=== PATIENT | female | born 1975 | race Caucasian/White ===

== ENCOUNTER 2023-05-11 17:50 | Emergency (ER) | payer MEDICAID, SELFPAY ==
[2023-05-11 17:52] VITALS: BP 190/103; PULSE 89; RESP 18; TEMP 36.1; O2SAT 95; BMI 57.2
--- NOTE | 2023-05-11 18:10 | EX.ED.DYSGE1 ---
HPI <MESFIN Ho - Last Filed: 05/11/23 19:42> History of Present Illness Chief Complaint: Shortness of Breath Narrative Narrative: Patient is a 48-year-old female with history of obesity, COPD, asthma, hypertension who quit smoking in November 2022. Patient smoked 2 packs/day. Presenting to the emergency department for 1 week of worsening cough, chest congestion. Patient is concerned because her son was positive for RSV, pneumonia. She states that over the last several days she has had subjective chills, intermittent sweating. She states that her mucus is thick and difficult to get up. PFSH <MESFIN Ho - Last Filed: 05/11/23 19:42> [facility] Medical History (Updated 05/11/23 @ 19:40 by MESFIN Ho) COPD (chronic obstructive pulmonary disease) Fentanyl use disorder, mild, in sustained remission, abuse Former smoker HTN (hypertension) Pulmonary emboli Home Medications albuterol sulfate 90 mcg/actuation aerosol inhaler 2 puff inhalation Q4H PRN sob wheezying 05/11/23 [History Last Taken 05/11/23] buprenorphine 8 mg-naloxone 2 mg sublingual film 1 film sublingual Q24H 05/11/23 [History Last Taken Unknown] bupropion HCl 300 mg 24 hr tablet, extended release 300 mg PO DAILY 05/11/23 [History Last Taken Unknown] doxycycline hyclate 100 mg capsule 100 mg PO BID #13 caps 05/11/23 [Rx Last Taken Unknown] gabapentin 300 mg capsule 300 mg PO Q8H 05/11/23 [History Last Taken Unknown] lisinopril 40 mg tablet 40 mg PO DAILY 05/11/23 [History Last Taken Unknown] prednisone 50 mg tablet 50 mg PO DAILY #4 tabs 05/11/23 [Rx Last Taken Unknown] Allergy/AdvReac Type Severity Reaction Status Date / Time No Known Allergies Allergy Verified 05/11/23 17:56 Surgical History (Updated 05/11/23 @ 18:45 by Kimberly Rodrigues) History of cholecystectomy History of open reduction and internal fixation (ORIF) procedure Social History Smoking Status: Former smoker ROS <MESFIN Ho - Last Filed: 05/11/23 19:42> ROS ED ROS Narrative Constitutional: Negative for fever, weight loss, weakness. Positive for chills Eyes: Negative for vision loss, vision change, double vision ENT: Negative for any sore throat, ear pain, congestion Cardiovascular: Negative for any chest pain, tightness, palpitations Respiratory: Negative for any hemoptysis, dyspnea, dyspnea on exertion, orthopnea. Positive for cough, sputum production Gastrointestinal: Negative for any abdominal pain, nausea, vomiting, diarrhea, constipation, blood in stool, blood in vomit : Negative for any urinary frequency, dysuria, retention, blood in urine Muscle skeletal: Negative for any myalgias, arthralgias, neck pain, back pain Neurological: Negative for any headache, syncope, paresthesias, dizziness Skin: Negative for any rashes, lumps, itching, abrasions, lacerations Psychiatric: Negative for any depression, anxiety, stress, suicidal ideation, homicidal ideation Hematologic: Negative for any easy bruising, excessive bruising, easy bleeding Allergies: Negative for any eczema, hives, rash EXAM <MESFIN Ho - Last Filed: 05/11/23 19:42> Physical Exam Narrative Exam Narrative: Vital signs reviewed. HEET: Head normocephalic atraumatic, TMs clear bilaterally. Posterior pharynx is clear, moist mucous membranes. Nares clear bilaterally. Neck: Supple with no lymphadenopathy or tenderness. No signs of meningismus. Cardiac: Regular rate and rhythm no murmurs gallops or rubs, equal peripheral pulses bilaterally. Respiratory: Difficult to assess lung sounds secondary to body habitus, there were some expiratory wheezes to the anterior left upper lobe. Posterior lung sounds were clear. No chest tenderness. Abdomen: Soft, nontender, nondistended. No abdominal bruit or pulsatile masses. No hepatosplenomegaly Extremities: No peripheral edema, no signs of gross trauma or deformity. Active full range of motion of all extremities. Neuro: Cranial nerves II through XII intact, no focal neurological deficits. Skin: Clean dry and intact with no rash, purpura, petechiae, vesicles or pustules. Backs/flank: No CVA tenderness, no midline spinal tenderness, no deformity. Psych: Normal mood and affect. No SI, HI or acute psychosis. Const Vital Signs: 05/11/23 17:52 05/11/23 18:46 05/11/23 19:02 Temperature 97.0 F L Temperature Source Temporal Pulse Rate 89 79 Respiratory Rate 18 14 Respiratory Effort Normal Respiratory Depth Normal Respiratory Pattern Normal Normal Blood Pressure 190/103 H Blood Pressure Mean 132 Pulse Ox 95 Oxygen Delivery Method Room Air Room Air 05/11/23 19:43 Temperature Temperature Source Pulse Rate 83 Respiratory Rate 17 Respiratory Effort Respiratory Depth Respiratory Pattern Blood Pressure 166/83 H Blood Pressure Mean 110 Pulse Ox 100 Oxygen Delivery Method <Dr. Сергей Lowe MD - Last Filed: 05/11/23 22:04> Physical Exam Const Vital Signs: 05/11/23 17:52 05/11/23 18:46 05/11/23 19:02 Temperature 97.0 F L Temperature Source Temporal Pulse Rate 89 79 Respiratory Rate 18 14 Respiratory Effort Normal Respiratory Depth Normal Respiratory Pattern Normal Normal Blood Pressure 190/103 H Blood Pressure Mean 132 Pulse Ox 95 Oxygen Delivery Method Room Air Room Air 05/11/23 19:43 Temperature Temperature Source Pulse Rate 83 Respiratory Rate 17 Respiratory Effort Respiratory Depth Respiratory Pattern Blood Pressure 166/83 H Blood Pressure Mean 110 Pulse Ox 100 Oxygen Delivery Method MDM <MESFIN Ho - Last Filed: 05/11/23 19:42> MDM Radiography Diagnostic Testing: Clinical Impression(s) from Imaging Studies Chest X-Ray 05/11/23 18:30 IMPRESSION: Normal x-ray examination of the chest. Electronically Signed: Ezra Chairez MD at 19:13 EST , Treatment and Re-Evaluation :: Patient appears generally well, patient appears nontoxic, vital signs are stable. Presenting to the emergency department with complaints of cough, generalized malaise over the last week. Differential diagnose includes community-acquired pneumonia, COPD exacerbation, influenza, COVID, RSV. Patient was given two-view chest x-ray as well as breathing treatments. All radiologic examinations were read, reviewed by the emergency department attending. From these reads, a plan of care will be put in place. Rapid PCR RSV/COVID/influenza will be completed. Chest x-ray was negative for any acute process, patient was negative for any COVID-19 influenza or RSV. At this time, patient be treated as a COPD exacerbation. Started on prednisone 50 mg for 5 days, she will given her first dose here. She also given 7 days of doxycycline given her first dose here. She is happy the plan of care, she will continue taking her regular inhalers. She was given strict return precaution. All questions answered stable for discharge <Dr. Сергей Lowe MD - Last Filed: 05/11/23 22:04> MDM Radiography Diagnostic Testing: Clinical Impression(s) from Imaging Studies Chest X-Ray 05/11/23 18:30 IMPRESSION: Normal x-ray examination of the chest. Electronically Signed: Ezra Chairez MD at 19:13 EST , Treatment and Re-Evaluation Comments:: I have personally performed a face to face assessment of the patient and have reviewed the KENDELL Note. I performed a substantive portion of the visit including all aspects of the following. My bangura findings include: History is 1 week of respiratory symptoms along with increased COPD symptoms. Trying to get up sputum more but having trouble getting it. No fevers or chills. Positive sick contacts. No edema in the legs. Using rescue inhaler more than usual which is helping does not have a nebulizer machine. Exam is obese, no respiratory distress. Lungs clear with slight end expiratory wheezes. Heart regular no edema. Medical Decison Making chest x-ray 2 views of mitral rotation negative for pneumonia, viral swabs obtained, she is not hypoxic. Will place her on prednisone, antibiotics to prevent bacterial superinfection, and she already has an inhaler to use if she is comfortable with that plan. Other additions or changes: [None] Discharge Plan Triage Chief Complaint: Shortness of Breath ED Midlevel Provider: Ridge Pulido ED Provider: Сергей Lowe Dx/Rx/DC Orders Clinical Impression: Asthma exacerbation in COPD Instructions: Asthma COPD Trigger Control, Asthma Prescriptions: New prednisone 50 mg tablet 50 mg PO DAILY Qty: 4 0RF doxycycline hyclate 100 mg capsule 100 mg PO BID Qty: 13 0RF No Action albuterol sulfate 90 mcg/actuation HFA aerosol inhaler 2 puff INHALATION Q4H PRN (Reason: sob wheezying) Patient Comments: INHALE 2 PUFFS BY MOUTH EVERY 4 HOURS NEEDED FOR SHORTNESS OF BREATH OR WHEEZING FOR UP TO 30 DAYS buprenorphine-naloxone 8-2 mg film 1 film sublingual Q24H Patient Comments: PLACE 1 STRIP UNDER THE TONGUE THREE TIMES DAILY FOR 28 DAYS bupropion HCl 300 mg tablet extended release 24 hr 300 mg PO DAILY gabapentin 300 mg capsule 300 mg PO Q8H lisinopril 40 mg tablet 40 mg PO DAILY Patient Comments: TAKE 1 TABLET BY MOUTH ONCE DAILY Primary Care Provider: Care Physician,No Primary Referrals: Care Physician,No Primary [Primary Care Provider] - Activity Restrictions/Additional Instructions: Please follow-up outpatient. Antibiotics till finished, take prednisone until finished. Disposition Disposition: Home, Self Care Discharge Date/Time: 05/11/23 19:47
--- NOTE | 2023-05-11 18:30 | RAD_ITS ---
STUDY: X-RAY CHEST REASON FOR EXAM: Female, 48 years old. cough TECHNIQUE: PA and lateral views of the chest. COMPARISON: None. FINDINGS: The lungs are clear and expanded. There is no demonstrated pleural abnormality. Normal size heart. Normal mediastinum and sukhwinder. Normal visualized pulmonary arteries. Normal visualized aortic arch and descending thoracic aorta. Normal visualized thoracic spine. Normal visualized ribs, clavicles, and shoulders. There is no demonstrated abnormality of the visualized soft tissue structures of the upper abdomen. RAD/Chest PA and Lateral IMPRESSION: Normal x-ray examination of the chest. Electronically Signed: Ezra Chairez MD at 19:13 EST ,
[2023-05-11] MEDS: Albuterol 2.5 MG/3 ML VIAL.NEB. INHALATION (19:01)
[2023-05-11] MEDS: Ipratropium/Albuterol Sulfate 3 ML AMPUL.NEB INHALATION (19:01)
[2023-05-11 19:02] VITALS: PULSE 79; RESP 14
[2023-05-11 19:43] VITALS: BP 166/83; PULSE 83; RESP 17; O2SAT 100
[2023-05-11] MEDS: Doxycycline 100 MG CAPSULE PO (19:46)
[2023-05-11] MEDS: predniSONE 20 MG Tablet 60 MG PO (19:46)
== END 2023-05-11 19:47 | disposition home or self-care (01) ==
PROVIDERS: Emergency Provider Emergency Medicine; Visit Provider Emergency Medicine
DX: J44.1 Chronic obstructive pulmonary disease with (acute) exacerbation (principal); E66.9 Obesity, unspecified; I10 Essential (primary) hypertension; Z79.899 Other long term (current) drug therapy; Z87.891 Personal history of nicotine dependence; Z86.711 Personal history of pulmonary embolism
CPT/HCPCS: 71046; 87631; 94640; 99283

== ENCOUNTER 2023-05-13 14:44 | Emergency (ER) | payer MEDICAID, SELFPAY ==
[2023-05-13 14:45] VITALS: BP 147/94; PULSE 104; RESP 24; TEMP 36.1; O2SAT 93
--- NOTE | 2023-05-13 14:54 | NURSING ---
NO OLD EKGS
--- NOTE | 2023-05-13 15:23 | EDS_ITS ---
HPI History of Present Illness Chief Complaint: Chest Pain [facility] Medical History (Updated 05/13/23 @ 18:[address] Andrew Franks, DO) COPD (chronic obstructive pulmonary disease) Fentanyl use disorder, mild, in sustained remission, abuse Former smoker HTN (hypertension) Pulmonary emboli Home Medications albuterol sulfate 90 mcg/actuation aerosol inhaler 2 puff inhalation Q4H PRN sob wheezying 05/11/23 [History Last Taken 05/11/23] buprenorphine 8 mg-naloxone 2 mg sublingual film 1 film sublingual Q24H 05/11/23 [History Last Taken Unknown] bupropion HCl 300 mg 24 hr tablet, extended release 300 mg PO DAILY 05/11/23 [History Last Taken Unknown] doxycycline hyclate 100 mg capsule 100 mg PO BID #13 caps 05/11/23 [Rx Last Taken Unknown] gabapentin 300 mg capsule 300 mg PO Q8H 05/11/23 [History Last Taken Unknown] lisinopril 40 mg tablet 40 mg PO DAILY 05/11/23 [History Last Taken Unknown] prednisone 50 mg tablet 50 mg PO DAILY #4 tabs 05/11/23 [Rx Last Taken Unknown] metoclopramide HCl 5 mg tablet (Reglan) 5 mg PO DAILY #20 tabs 05/13/23 [Rx Last Taken Unknown] Allergy/AdvReac Type Severity Reaction Status Date / Time No Known Allergies Allergy Verified 05/11/23 17:56 Surgical History (Updated 05/11/23 @ 18:45 by Kimberly Rodrigues) History of cholecystectomy History of open reduction and internal fixation (ORIF) procedure Social History Smoking Status: Former smoker EXAM Physical Exam Const Vital Signs: 05/13/23 14:45 05/13/23 15:47 05/13/23 15:47 Temperature 96.9 F L Temperature Source Temporal Pulse Rate 104 H 100 Respiratory Rate 24 H 15 Respiratory Effort Blood Pressure 147/94 H 130/85 H Blood Pressure Mean 111 100 Pulse Ox 93 94 94 Oxygen Delivery Method Room Air Room Air Room Air 05/13/23 15:30 Temperature Temperature Source Pulse Rate Respiratory Rate Respiratory Effort Normal Non-Labored Blood Pressure Blood Pressure Mean Pulse Ox Oxygen Delivery Method Heart Score History: Slightly/Non-Suspicious ECG: Normal Age: >45 - <65 years Risk Factors: 1 or 2 Risk Factors Troponin: </= Normal Limit Score: 2 MDM MDM MDM Narrative Medical decision making narrative: HISTORY OF PRESENT ILLNESS: 48-year-old female presents with chest pain, shortness of breath and headache. She notes headache started 2 days ago. Was gradual in onset. Patient denies sudden onset or thunderclap headache, denies maximal intensity within 1 minute, vomiting, neck pain, stiffness, changes in vision, fever, history malignancy, syncope, or seizures associated with headache. Patient denies sudden onset of pain, no tearing sensation, no migratory symptoms, no new numbness, weakness or loss of sensation. Patient denies family history or personal history of Connective tissue disorders (Marfan's Syndrome, Reymundo Danlos etc). The patient denies recent surgery in the last 4 weeks or immobilization in the last 3 days, or PE, hemoptysis, unilateral leg swelling or malignancy with treatment the last 6 months or palliative. No estrogen use noted. No falls or recent trauma. No syncope reported. In Terms of patient's shortness of breath and chest pain. States is intermittent. Occurred 1 week ago. REVIEW OF SYSTEMS: Pertinent positives: Chest pain, shortness of breath, headache Pertinent negatives: Syncope, focal weakness, slurred speech, loss of vision, facial drooping, head trauma, vomiting, fever, neck stiffness PHYSICAL EXAM: Nursing triage notes reviewed, Vital signs reviewed Constitutional: please see mdm HENT: MMM Eyes: Pupils equal round and reactive to light, Extraocular muscles intact Neck: No stridor, no JVD, full neck ROM Lungs: Clear to auscultation, No wheezing or rales. No increased work of breathing, no conversational dyspnea, no accessory muscle use, no nasal flaring. No respiratory distress noted Heart: Regular rate and rhythm, No murmurs, No rubs and No gallops, 2+ distal pulses (radial, femoral, posterior tibial) in all extremities Abdomen: Soft, there is no tenderness, rigidity, rebound or guarding, no obvious peritoneal signs, no palpable pulsatile abdominal masses, no auscultated abdominal bruit : No CVAT Extremities: No edema Neuro: No focal neurological deficits, cranial nerves II through XII intact, 5/5 strength in all extremities. Intact sensation to light touch in all extremities, 2+ reflexes bilateral patella tendons. Normal gait. No ataxia. Skin: No rash or lesions noted MEDICAL DECISION MAKING: Chief Complaint: Chest pain, shortness breath, headache External records reviewed: No recent advanced imaging of the chest, recent cardiac catheterizations, stress test or echocardiograms noted Factors affecting care: Hypertension, asthma Social determinants of health: Denies illicit drug use History obtained from others: none Consults: none [facility] Narrative: THe patient was initially hemodynamically stable, tachypneic, mildly tachycardic saturating 93% on room air. Lungs were clear otherwise. No focal neurologic deficits I considered the following differential diagnosis: ALL IMAGES (IF OBTAINED) HAVE BEEN PERSONALLY REVIEWED AND INTERPRETED BY MYSELF. EKG with sinus tachycardia, normal axis, normal intervals, no STemi D-dimer negative making VTE less likely High-sensitivity troponin is negative, no evidence of myocardial ischemiax2 BNP within normal limits making heart failure less likely CBC without leukocytosis, severe anemia, no thrombocytopenia. BMP without evidence of significant electrolyte abnormalities, no anion gap, no acute kidney injury. I have personally reviewed the patient's chest x-ray. Chest x-ray is unremarkable for pulmonary edema, pneumothorax, pneumonia or focal cardiopulmonary abnormality. COVID, flu, RSV negative The synthesis of the patient's history, physical exam, labs images suggest no acute or life-threatening etiology. Patient's headache is not concerning for meningitis, subarachnoid hemorrhage or other intracranial abnormality. Her chest pain or shortness of breath do not appear to be consistent with pneumonia, ACS, COVID, flu, RSV, heart failure, PE. I completed a HEART Score to screen for Major Adverse Cardiac Event (MACE) in this patient. The evidence indicates that the patient is very low risk for MACE and this is consistent with my clinical intuition. The risk of further workup or hospitalization for MACE is likely higher than the risk of the patient having a MACE. It is, therefore, in the patient?s best interest not to do additional emergent testing or to be hospitalized for MACE at this time. Shared Decision-Making No hospitalization indicated I have discussed with the patient my clinical impression and the result of the HEART Score to screen for MACE, as well as the risks of further testing and hospitalization. The HEART Score shows that the risk for MACE is less than 1%. Although the risk of MACE has not been completely eliminated, the risks of further testing or hospitalization for MACE likely exceed any potential benefit, and the patient agrees with not pursuing further emergent evaluation or hospitalization for MACE at this time. The patient and/or family, caregivers express understanding. The patient and/or family, caregivers agrees with the plan. Total critical care time today provided was at least 0 minutes. This excludes separately billable procedures. Critical care time (if documented) is secondary to the patient having high probability of clinically significant/life threatening deterioration in the patient's condition which required my urgent intervention. Impression: 1. Chest pain 2. Shortness of breath 3. Headache Dispo: Discharge Lab Data Labs: Laboratory Results - last 24 hr 05/13/23 05/13/23 15:45 17:50 WBC 10.3 RBC 4.53 Hgb 13.2 Hct 42.0 MCV 92.7 MCH 29.1 MCHC 31.4 L RDW Std Deviation 41.9 RDW Coeff of [place] 12.2 Plt Count 209 MPV 10.4 Immature Gran % (Auto) 0.300 Neut % (Auto) 58.4 Lymph % (Auto) 29.4 Glenn % (Auto) 6.4 Eos % (Auto) 4.9 Baso % (Auto) 0.6 Absolute Neuts (auto) 6.0 Absolute Lymphs (auto) 3.01 Nucleated RBC % 0 D-Dimer Quant (PE/DVT) 0.46 Sodium 142 Potassium 4.1 Chloride 110 H Carbon Dioxide 27.0 Anion Gap 5 BUN 27 H Creatinine 0.74 Est GFR (MDRD) Af Amer 108 Est GFR (MDRD) Non-Af 89 BUN/Creatinine Ratio 36.3 H Glucose 122 H Calcium 8.3 L Troponin I High Sens 5 5 B-Natriuretic Peptide 17.0 Radiography Chest X-Ray - ED: Read by ED Physician Diagnostic Testing: Clinical Impression(s) from Imaging Studies Chest X-Ray 05/13/23 15:45 IMPRESSION: No radiographic evidence of acute cardiopulmonary disease. Electronically Signed: Seb Bal DO at 17:00 EST Reading Location ID and State: [facility] / [place] Tel [phone], Service support , Discharge Plan Triage Chief Complaint: Chest Pain ED Provider: Andrew Franks Dx/Rx/DC Orders Clinical Impression: Chest pain Instructions: ED, Migraine (Classical), Chest Pain [facility] Prescriptions: New metoclopramide HCl [Reglan] 5 mg tablet 5 mg PO DAILY Qty: 20 0RF No Action albuterol sulfate 90 mcg/actuation HFA aerosol inhaler 2 puff INHALATION Q4H PRN (Reason: sob wheezying) Patient Comments: INHALE 2 PUFFS BY MOUTH EVERY 4 HOURS NEEDED FOR SHORTNESS OF BREATH OR WHEEZING FOR UP TO 30 DAYS buprenorphine-naloxone 8-2 mg film 1 film sublingual Q24H Patient Comments: PLACE 1 STRIP UNDER THE TONGUE THREE TIMES DAILY FOR 28 DAYS bupropion HCl 300 mg tablet extended release 24 hr 300 mg PO DAILY gabapentin 300 mg capsule 300 mg PO Q8H lisinopril 40 mg tablet 40 mg PO DAILY Patient Comments: TAKE 1 TABLET BY MOUTH ONCE DAILY prednisone 50 mg tablet 50 mg PO DAILY Qty: 4 0RF doxycycline hyclate 100 mg capsule 100 mg PO BID Qty: 13 0RF Stand Alone Forms: Work / School Excuse Primary Care Provider: Care Physician,No Primary Referrals: Suhail Veliz MD [Med Staff - Case Assembler] - Disposition Disposition: Home, Self Care Capacity Legal Mini Shifter Reflex Medical hold order details:: IF a medical hold is selected below, a suggested order for a MEDICAL HOLD will reflex upon signing the document. Next of kin: [place] law dictates a PRIORITY LIST for identifying legal decision-maker/legal next of kin in the following order (LNOK): 1st: The patient?s legal guardian, if any 2nd: The patient's spouse (if status is questionable, consult Risk Management) 3rd: The patient?s adult child(argelia) (majority, if multiple children) 4th: The patient?s parents 5th: The patient?s adult siblings (majority, if multiple children siblings)
--- NOTE | 2023-05-13 15:25 | EKG12_ITS ---
Test Reason : CP Blood Pressure : / mmHG Vent. Rate : 106 BPM Atrial Rate : 106 BPM P-R Int : 136 ms QRS Dur : 090 ms QT Int : 332 ms P-R-T Axes : 071 050 004 degrees QTc Int : 441 ms Sinus tachycardia with Premature atrial complexes Biatrial enlargement Abnormal ECG Confirmed by CHAN GOVEA, YAIR ([id number]), video tape editor LOYDA MACHADO ([id number]) on 05/15/2023 9:17:29 AM Referred By: SAMMIE/SAIMA Confirmed By:YAIR GILES MD
--- NOTE | 2023-05-13 15:45 | RAD_ITS ---
INDICATION: chest pain EXAMINATION/TECHNIQUE: X-RAY - XR Chest 1 View COMPARISON: FINDINGS: LINES/DEVICES: None. LUNGS: No consolidation, edema or effusion. No pneumothorax. MEDIASTINUM AND CARDIOVASCULAR STRUCTURES: Cardiac silhouette not enlarged. Central airways and mediastinal contour are unremarkable. BONES AND SOFT TISSUES: Unremarkable. RAD/Chest 1 View (Portable) IMPRESSION: No radiographic evidence of acute cardiopulmonary disease. Electronically Signed: Seb Bal DO at 17:00 EST Reading Location ID and State: [facility] / [place] Tel [phone], Service support ,
[2023-05-13 15:47] VITALS: BP 130/85; PULSE 100; RESP 15; O2SAT 94
[2023-05-13 15:54] LABS: Absolute Lymphocyte Count 3.01 X10^3/uL (0.83-4.51); Basophil# 0.06 X10^3/uL; Basophil% 0.6 % (0-1); Eosinophils% 4.9 % (0-5); Hemoglobin 13.2 g/dL (12.0-15.0); Lymphocyte # 3.01 X10^3/ul (0.83-4.51); Lymphocyte % 29.4 % (19-41); Mean Corp Hgb Conc 31.4 g/dL (32-36); Mean Corpuscular Hgb 29.1 pg (27.0-32.0); Mean Corpuscular Volume 92.7 fL (81-99); Mean Platelet Vol. 10.4 fl (6.2-12.0); Monocyte# 0.66 X10^3/uL; Monocyte% 6.4 % (0-10); NRBC Flagged by Analyzer 0 % (0-5); Neutrophil # 5.99 X10^3/uL (2.7-7.7); Neutrophil % 58.4 % (47-70); Platelet Count 209 K/mm3 (150-450); RBC Distribution Width CV 12.2 % (11.6-14.6); RBC Distribution Width SD 41.9 fl (35.1-43.9); Red Blood Count 4.53 M/mm3 (4.2-5.4); White Blood Count 10.3 K/mm3 (4.4-11.0)
[2023-05-13] MEDS: Acetaminophen 325 MG Tablet PO (15:55)
[2023-05-13] MEDS: 0.9% Normal Saline (1000mL) 1,000 ML 999 ML IV (15:57)
[2023-05-13] MEDS: Ketorolac 15 MG/ML Vial IV (15:58)
[2023-05-13] MEDS: Metoclopramide 10 MG/2 ML Vial 5 MG IV (15:58)
[2023-05-13 16:12] LABS: Anion Gap 5 (5-15); BUN 27 mg/dL (7-18); BUN/Creat Ratio 36.3 RATIO (10-20); Calcium,Total 8.3 mg/dL (8.5-10.1); Chloride 110 mmol/L (98-107); Creatinine, Serum 0.74 mg/dL (0.55-1.02); EST Glomerular Filtration Rate 89 mL/min (>60); Est Glom Filt Rate - Afr Amer 108 mL/min (>60); Glucose 122 mg/dL (74-106); Potassium 4.1 mmol/L (3.5-5.1); Sodium Level 142 mmol/L (136-145); Troponin-I HS (w/2H Reflex) 5 pg/mL (3.0-54.0)
[2023-05-13 16:29] LABS: D-Dimer Quantitative (DVT/PE) 0.46 FEU/ug/m (0.27-0.49)
[2023-05-13 17:45] VITALS: BP 165/93; PULSE 89; RESP 12; O2SAT 98
[2023-05-13 17:52] LABS: Reflex Troponin-HS? (from REC) Y
[2023-05-13 18:34] LABS: Troponin-I HS 5 pg/mL (3.0-54.0)
== END 2023-05-13 19:51 | disposition home or self-care (01) ==
PROVIDERS: Emergency Provider Emergency Medicine; Visit Provider Emergency Medicine
DX: R07.9 Chest pain, unspecified (principal); J44.9 Chronic obstructive pulmonary disease, unspecified; R06.02 Shortness of breath; R51.9 Headache, unspecified; Z87.891 Personal history of nicotine dependence; Z86.711 Personal history of pulmonary embolism
CPT/HCPCS: 71045; 80048; 83880; 84484; 85025; 85379; 87631; 93005; 96361; 96374; 96375; 99283; J7030; A4216

== ENCOUNTER 2023-05-22 13:37 | Emergency (ER) | payer MEDICAID, SELFPAY ==
[2023-05-22 13:38] VITALS: BP 186/106; PULSE 110; RESP 22; TEMP 36; O2SAT 96
[2023-05-22 14:00] VITALS: BMI 60.5
--- NOTE | 2023-05-22 14:10 | RAD_ITS ---
HISTORY: chest pain. TECHNIQUE: XR Chest 1 View. COMPARISON: 05/13/2023. FINDINGS: CARDIOMEDIASTINAL BORDERS: Cardiac silhouette within normal limits in size. Mediastinal contour unremarkable. LUNGS: Radiographically clear. PLEURA: No pleural effusion or pneumothorax seen. OSSEOUS STRUCTURES: Unremarkable. RAD/Chest 1 View (Portable) IMPRESSION: No acute cardiopulmonary process identified. Electronically Signed: Kathy Harrison MD at 14:30 EST ,
[2023-05-22 14:16] LABS: Absolute Lymphocyte Count 2.68 X10^3/uL (0.83-4.51); Basophil# 0.04 X10^3/uL; Basophil% 0.5 % (0-1); Eosinophil# 0.46 X10^3/uL; Eosinophils% 6.1 % (0-5); Hematocrit 45.8 % (37-47); Lymphocyte # 2.68 X10^3/ul (0.83-4.51); Lymphocyte % 35.7 % (19-41); Mean Corp Hgb Conc 32.8 g/dL (32-36); Mean Corpuscular Hgb 29.1 pg (27.0-32.0); Mean Corpuscular Volume 88.9 fL (81-99); Mean Platelet Vol. 10.8 fl (6.2-12.0); Monocyte# 0.37 X10^3/uL; Monocyte% 4.9 % (0-10); NRBC Flagged by Analyzer 0 % (0-5); Neutrophil # 3.95 X10^3/uL (2.7-7.7); Neutrophil % 52.7 % (47-70); Platelet Count 197 K/mm3 (150-450); RBC Distribution Width CV 12.1 % (11.6-14.6); RBC Distribution Width SD 39.3 fl (35.1-43.9); Red Blood Count 5.15 M/mm3 (4.2-5.4); White Blood Count 7.5 K/mm3 (4.4-11.0)
[2023-05-22 14:21] LABS: D-Dimer Quantitative (DVT/PE) 0.48 FEU/ug/m (0.27-0.49)
--- NOTE | 2023-05-22 14:28 | EDS_ITS ---
HPI History of Present Illness Chief Complaint: Chest Pain Informant: patient Onset/Context/Timing Onset: Weeks Activity at onset: gradual Timing: Intermittent Quality: Positive for Dull Current Severity: Mild Maximum Severity: Mild Worsened By: Nothing Relieved By: Nothing Associated Symptoms: Positive for Palpitations; Negative for Nausea, Vomiting, Diaphoresis, Dyspnea, Cough, Fever, Lightheadedness or Acid Reflux Narrative Narrative: 48-year-old female history of 1 prior PE in 2014 which she was on anticoagulation which was then taken off. They do not have any specific cause of why she had it. COPD and prior fentanyl abuse has been clean for about 8 months she said. States that she has had abdominal sensation in her chest not associated with exertion she said she has had these headaches she has felt weird for about a week. She walked into [facility] last night had elevated heart rate and felt short of breath more than her baseline. No exertional chest pain. Said did not feel like a PE. No hemoptysis. No fever. No diarrhea. No dysuria. No melena. States she is also very anxious. Prior Similar Symptoms: Yes Recent Illness/Hospitalization: No CVD Risk Factors: Negative for Hypertension, Diabetes, Hypercholesterolemia, Family History 1' </=55 or Smoking PE Risk Factors: Positive for Prior DVT or PE; Negative for Recent Travel/Surgery, Recent Immobilization, Cancer or OCP + Smoking + >/=35 TAD Risk Factors: Negative for Marfan's Syndrome [facility] Medical History COPD (chronic obstructive pulmonary disease) Fentanyl use disorder, mild, in sustained remission, abuse Former smoker HTN (hypertension) Pulmonary emboli Home Medications albuterol sulfate 90 mcg/actuation aerosol inhaler 2 puff inhalation Q4H PRN sob wheezying 05/11/23 [History Last Taken 05/11/23] buprenorphine 8 mg-naloxone 2 mg sublingual film 1 film sublingual Q24H 05/11/23 [History Last Taken Unknown] bupropion HCl 300 mg 24 hr tablet, extended release 300 mg PO DAILY 05/11/23 [History Last Taken Unknown] doxycycline hyclate 100 mg capsule 100 mg PO BID #13 caps 05/11/23 [Rx Last Taken Unknown] gabapentin 300 mg capsule 300 mg PO Q8H 05/11/23 [History Last Taken Unknown] lisinopril 40 mg tablet 40 mg PO DAILY 05/11/23 [History Last Taken Unknown] prednisone 50 mg tablet 50 mg PO DAILY #4 tabs 05/11/23 [Rx Last Taken Unknown] metoclopramide HCl 5 mg tablet (Reglan) 5 mg PO DAILY #20 tabs 05/13/23 [Rx Last Taken Unknown] Allergy/AdvReac Type Severity Reaction Status Date / Time No Known Allergies Allergy Verified 05/22/23 13:38 Surgical History History of cholecystectomy History of open reduction and internal fixation (ORIF) procedure Social History Smoking Status: Former smoker ROS ROS ED ROS Narrative Palpitations. Dyspnea. Review of Systems ROS Unobtainable: Denies due to encephalopathy Constitutional Constitutional ED: Denies chills or fever(s) Eyes Eyes: Reports none ENT ENT ED: Denies ear pain Cardiovascular Cardiovascular: Reports as per HPI, chest pain, palpitations and racing heartbeat Respiratory/Chest Respiratory/Chest: Reports dyspnea and dyspnea on exertion; Denies cough Gastrointestinal Gastrointestinal: Denies abdominal pain, constipation, diarrhea, melena, nausea or vomiting Genitourinary Genitourinary ED: Denies dysuria or hematuria Musculoskeletal Musculoskeletal: Denies arthralgias, back pain, myalgias or neck pain Integumentary Denies abscess or Abrasions Neurologic Neurologic: Reports headache(s) Psychiatric Psychiatric: Denies anxiety or depression Endocrine Endocrinology: Denies cold intolerance Hematologic/Lymphatic Hematologic/Lymphatic: Denies easy bleeding Allergic/Immunologic Allergic/Immunologic ED: Denies mouth swelling EXAM Physical Exam Narrative Exam Narrative: Well-appearing 48-year-old female. Vital signs are stable. She is tachycardic 110. Pulse ox 96% on room air no hypoxia. No distress. H EENT exam unremarkable. Neck nontender to palpation, no JVD, no lymphadenopathy. Lungs clear to auscultation bilaterally. Heart tachycardic rate about 110 no murmur. Abdomen obese but soft nontender normal bowel sounds no peritoneal signs. Chest wall and ribs nontender. Back nontender. Moving all 4 extremities. 5-5 plaster form maker strength. Dorsi plantarflexion intact. Calves are nontender without edema or cords. Neurologically she is awake and alert with no focal motor Deficits. Lower Const Vital Signs: 05/22/23 13:38 05/22/23 13:58 05/22/23 14:21 Temperature 96.8 F L Temperature Source Temporal Pulse Rate 110 H Respiratory Rate 22 H Blood Pressure 186/106 H Blood Pressure Mean 132 Pulse Ox 96 Oxygen Delivery Method Room Air Room Air Room Air Positive well nourished, well developed and obese; Negative for cachectic, contractures or unkempt General Appearance ED: well developed and NAD; Negative for unkempt, cachectic, contractures or pallor Nutritional Appearance: obese; Negative for cachectic HEENT Reports moist mucous membranes normocephalic and atraumatic; Negative for trauma or tenderness Eyes PERRL and EOMs intact bilaterally General Eye ED: Negative for pale conjunctiva, scleral icterus or other Neck no lymphadenopathy, supple and no JVD General: Negative for tenderness Chest Wall inspection of chest normal and palpation of chest normal Chest: Negative for tenderness Resp normal respiratory effort and clear to auscultation bilaterally Effort and Inspection: Negative for respiratory distress Auscultation: Negative for rales, rhonchi or wheezes Cardio regular rhythm, S1 normal heart sound, S2 normal heart sound and no murmurs; Negative for regular rate Rate: tachycardic Rhythm: Negative for abnormal rhythm Peripheral Pulses: pulses 2+ throughout GI normal to inspection, nondistended, normoactive bowel sounds, soft to palpation, non-tender, non-distended and no masses Back/Spine no CVA tenderness and no thoracic nor lumbar tenderness General Back: Negative for CVA tenderness Cervical Spine: Negative for cervical spine tenderness Extremity normal to inspection General Extremety ED: Negative for edema, pulses abnormal or tenderness General Extremity: Negative for edema or pulses abnormal Neuro oriented x3 and CN's II-XII intact bilaterally Sensorium / Orientation: awake, alert, oriented to person, oriented to place and oriented to time; Negative for confused or lethargic Motor Exam: strength 5/5 throughout Psych mental status grossly normal Appearance: Negative for unkempt Attitude: No agitated Mood & Affect: Negative for depressed, anxious, tearful or other Skin no rashes or lesions noted and no wounds General Skin Exam: Negative for jaundice or pallor Rashes: No rashes noted Trauma: Negative for abrasion or laceration Heart Score History: Slightly/Non-Suspicious ECG: Normal Age: >45 - <65 years Risk Factors: 1 or 2 Risk Factors Troponin: </= Normal Limit Score: 2 MDM MDM MDM Narrative Medical decision making narrative: 48-year-old female with tachycardia and exertional dyspnea with a prior history of a PE. Cardiac workup with a D-dimer. Repeat exam patient is doing well at 6:30 PM. We went over all of her normal test results. She needs no further workup. She requested something for anxiety she was given a dose of p.o. Ativan here prior to discharge. She has a ride coming to pick her up. She is comfortable being discharged home. History & Record Review Discussion w/independent historian: Patient Additional record(s) reviewed:: Prior inpatient record, Prior outpatient record and Prior ED visit Lab Data Attestation: I reviewed the patient's lab results. Lab results narrative: CBC unremarkable. White count of 7. H&H of 15 and 45. Platelets 197. D-dimer is 0.48. BMP shows a gap of 3. BUN and creatinine 19 and 0.6. Glucose 110. First troponin 6. 2-hour troponin 5. Labs: Laboratory Results - last 24 hr 05/22/23 05/22/23 13:15 16:10 WBC 7.5 RBC 5.15 Hgb 15.0 Hct 45.8 MCV 88.9 MCH 29.1 MCHC 32.8 RDW Std Deviation 39.3 RDW Coeff of [place] 12.1 Plt Count 197 MPV 10.8 Immature Gran % (Auto) 0.100 Neut % (Auto) 52.7 Lymph % (Auto) 35.7 [place] % (Auto) 4.9 Eos % (Auto) 6.1 H Baso % (Auto) 0.5 Absolute Neuts (auto) 4.0 Absolute Lymphs (auto) 2.68 Nucleated RBC % 0 D-Dimer Quant (PE/DVT) 0.48 Sodium 140 Potassium 4.0 Chloride 106 Carbon Dioxide 31.0 Anion Gap 3 L BUN 19 H Creatinine 0.64 Estim Creat Clear Calc 207.92 Est GFR (MDRD) Af Amer 128 Est GFR (MDRD) Non-Af 106 BUN/Creatinine Ratio 29.8 H Glucose 110 H Calcium 8.8 Troponin I High Sens 6 5 Radiography Chest X-Ray - ED: 1 View, Read by ED Physician, Read by Radiologist, Normal, Heart, Lungs, Mediastinum, Bony Structures, No Acute Disease and Chronic Changes Diagnostic Testing: Clinical Impression(s) from Imaging Studies Chest X-Ray 05/22/23 14:10 IMPRESSION: No acute cardiopulmonary process identified. Electronically Signed: Kathy Harrison MD at 14:30 EST Reading Location ID and State: [facility] / [place] Tel , Service support , Chest x-ray, portable, single view interpreted by myself the radiologist shows no acute abnormality. Normal cardiac silhouette. Normal lung murray. No infiltrate no effusions. Rhythm Strip Rhythm Strip: Sinus Tach Rate: 105 Ectopy: None EKG Initial EKG: Attestation: I personally reviewed and interpreted this EKG as follows: Interpretation: Sinus Rhythm, No Acute Injury Pattern and Sinus Tachycardia Comments: Sinus tachycardia rate of 105 no acute signs of MD or ischemia. No S1Q3T3. Discharge Plan Triage Chief Complaint: Chest Pain Other Complaint: Palpitations Shortness of Breath ED Provider: Rob Greer Dx/Rx/DC Orders Clinical Impression: Anxiety, Chest pain Instructions: ED Anxiety Reaction, ED Chest Pain, Uncertain Cause Prescriptions: No Action albuterol sulfate 90 mcg/actuation HFA aerosol inhaler 2 puff INHALATION Q4H PRN (Reason: sob wheezying) Patient Comments: INHALE 2 PUFFS BY MOUTH EVERY 4 HOURS NEEDED FOR SHORTNESS OF BREATH OR WHEEZING FOR UP TO 30 DAYS buprenorphine-naloxone 8-2 mg film 1 film sublingual Q24H Patient Comments: PLACE 1 STRIP UNDER THE TONGUE THREE TIMES DAILY FOR 28 DAYS bupropion HCl 300 mg tablet extended release 24 hr 300 mg PO DAILY gabapentin 300 mg capsule 300 mg PO Q8H lisinopril 40 mg tablet 40 mg PO DAILY Patient Comments: TAKE 1 TABLET BY MOUTH ONCE DAILY prednisone 50 mg tablet 50 mg PO DAILY Qty: 4 0RF doxycycline hyclate 100 mg capsule 100 mg PO BID Qty: 13 0RF metoclopramide HCl [Reglan] 5 mg tablet 5 mg PO DAILY Qty: 20 0RF Primary Care Provider: Care Physician,No Primary Referrals: Cata Villalobos [Non-Staff] - As Needed Care Physician,No Primary [Primary Care Provider] - Activity Restrictions/Additional Instructions: Follow-up with primary care provider. Your tests today were normal. Disposition Disposition: Home, Self Care
[2023-05-22 14:29] LABS: Anion Gap 3 (5-15); BUN 19 mg/dL (7-18); BUN/Creat Ratio 29.8 RATIO (10-20); Calcium,Total 8.8 mg/dL (8.5-10.1); Chloride 106 mmol/L (98-107); Creatinine, Serum 0.64 mg/dL (0.55-1.02); EST Glomerular Filtration Rate 106 mL/min (>60); Est Glom Filt Rate - Afr Amer 128 mL/min (>60); Estimated Creatinine Clearance 207.92 ml/min; Glucose 110 mg/dL (74-106); Sodium Level 140 mmol/L (136-145); Troponin-I HS (w/2H Reflex) 6 pg/mL (3.0-54.0)
[2023-05-22 16:04] LABS: Reflex Troponin-HS? (from REC) Y
[2023-05-22] MEDS: Acetaminophen 500 MG Tablet 1000 MG PO (16:20)
[2023-05-22 16:55] VITALS: O2SAT 98
[2023-05-22 17:00] LABS: Troponin-I HS 5 pg/mL (3.0-54.0)
[2023-05-22] MEDS: LORazepam 1 MG Tablet PO (18:52)
[2023-05-22 18:55] VITALS: BP 138/77; PULSE 91; RESP 16; O2SAT 98
== END 2023-05-22 18:56 | disposition home or self-care (01) ==
PROVIDERS: Emergency Provider Emergency Medicine; Visit Provider Emergency Medicine
DX: R07.9 Chest pain, unspecified (principal); J44.9 Chronic obstructive pulmonary disease, unspecified; F41.9 Anxiety disorder, unspecified; I10 Essential (primary) hypertension; Z79.899 Other long term (current) drug therapy; Z86.711 Personal history of pulmonary embolism; Z87.891 Personal history of nicotine dependence
CPT/HCPCS: 71045; 80048; 84484; 85025; 85379; 93005; 99285; A4216

== ENCOUNTER 2023-05-25 15:33 | Emergency (ER) | payer MEDICAID, SELFPAY ==
[2023-05-25 15:34] VITALS: BP 186/122; PULSE 112; RESP 18; TEMP 35.8; O2SAT 98; BMI 55.0
--- NOTE | 2023-05-25 15:54 | EDS_ITS ---
HPI History of Present Illness Chief Complaint: Anxiety Informant: patient Onset/Context/Timing Onset: Month(s) (3) Context: Gradual Onset Timing: Continuous Quality: Anxiety Location: Generalized Worsened by: Sleeping Relieved by: Nothing Narrative Narrative: Patient presents with increasing anxiety that has gotten worse over the past 3 months. Patient states it is gradually getting worse. Patient states it has been constant. Patient states it is worse when she sleeps. Patient states she is having nightmares which are flashbacks to when she was abusing drugs. Patient admits to some suicidal thoughts. Patient states she just wants to go to sleep and not wake up. Patient denies any definite plan for suicide. Patient denies any chest pain or shortness of breath. Patient denies any nausea or vomiting. [facility] Medical History COPD (chronic obstructive pulmonary disease) Fentanyl use disorder, mild, in sustained remission, abuse Former smoker HTN (hypertension) Pulmonary emboli Home Medications albuterol sulfate 90 mcg/actuation aerosol inhaler 2 puff inhalation Q4H PRN sob wheezying 05/11/23 [History Last Taken 05/11/23] buprenorphine 8 mg-naloxone 2 mg sublingual film 1 film sublingual Q24H 05/11/23 [History Last Taken Unknown] gabapentin 300 mg capsule 400 mg PO Q8H 05/11/23 [History Last Taken Unknown] lisinopril 40 mg tablet 40 mg PO DAILY 05/11/23 [History Last Taken Unknown] Allergy/AdvReac Type Severity Reaction Status Date / Time No Known Allergies Allergy Verified 05/25/23 15:34 Surgical History History of cholecystectomy History of open reduction and internal fixation (ORIF) procedure Social History Smoking Status: Current every day smoker tobacco type: cigarettes ROS ROS ED Constitutional Constitutional ED: Denies chills or fever(s) Eyes Eyes: Denies blurry vision or change in vision ENT ENT ED: Denies rhinorrhea or sore throat Cardiovascular Cardiovascular: Denies chest pain or palpitations Respiratory/Chest Respiratory/Chest: Denies cough or dyspnea Gastrointestinal Gastrointestinal: Denies nausea or vomiting Genitourinary Genitourinary ED: Denies dysuria or hematuria Musculoskeletal Musculoskeletal: Denies back pain or neck pain Integumentary Denies abscess or rash Neurologic Neurologic: Denies headache(s) or weakness Psychiatric Psychiatric: Reports anxiety, suicidal ideation and suicidal thoughts Allergic/Immunologic Allergic/Immunologic ED: Denies mouth swelling or urticaria EXAM Physical Exam Const Vital Signs: 05/25/23 15:34 05/25/23 19:00 Temperature 96.4 F L Temperature Source Temporal Pulse Rate 112 H 81 Respiratory Rate 18 16 Blood Pressure 186/122 H 141/91 H Blood Pressure Mean 143 107 Pulse Ox 98 95 Oxygen Delivery Method Room Air Room Air Positive well nourished, well developed and obese General Appearance ED: well developed and NAD Nutritional Appearance: obese HEENT Reports moist mucous membranes Neck supple and no JVD Chest Wall palpation of chest normal Resp normal respiratory effort and clear to auscultation bilaterally Cardio regular rhythm Rate: tachycardic GI non-tender and non-distended Palpation: soft Extremity General Extremety ED: Negative for edema or tenderness General Extremity: Negative for edema Neuro oriented x3, CN's II-XII intact bilaterally and no sensory deficits noted Sensorium / Orientation: alert Motor Exam: strength 5/5 throughout Psych Mood & Affect: anxious and tearful MDM MDM MDM Narrative Medical decision making narrative: Differential diagnosis includes depression, anxiety, PTSD, electrolyte abnormality, anemia, and urinary tract infection. CBC will be obtained to assess for leukocytosis and anemia. Basic metabolic profile will be obtained to assess for electrolyte abnormality and renal function. Serum hCG will be obtained to assess for . Urinalysis will be obtained to assess for urinary tract infection. Serum alcohol level will be obtained to assess for alcohol intoxication. Urine tox screen will be obtained to assess for substance abuse. Lab Data Attestation: I reviewed the patient's lab results. Lab results narrative: CBC was reviewed and was within normal limits. Basic metabolic profile was reviewed and was within normal limits. Serum hCG was reviewed and was negative. Urine tox screen was reviewed and was negative. Serum alcohol level was reviewed and was less than 3.0. COVID-19 PCR was reviewed and was negative. Labs: Laboratory Results - last 24 hr 05/25/23 05/25/23 17:03 17:40 WBC 6.8 RBC 4.95 Hgb 14.5 Hct 44.7 MCV 90.3 MCH 29.3 MCHC 32.4 RDW Std Deviation 39.9 RDW Coeff of [place] 12.1 Plt Count TNP MPV 10.8 Immature Gran % (Auto) 0.100 Neut % (Auto) 54.2 Lymph % (Auto) 32.7 [place] % (Auto) 5.4 Eos % (Auto) 6.9 H Baso % (Auto) 0.7 Absolute Neuts (auto) 3.7 Absolute Lymphs (auto) 2.23 Nucleated RBC % 0 Platelet Estimate ADEQUATE RBC Morphology N CHROM Anisocytosis RARE Macrocytosis RARE Sodium 137 Potassium 4.2 Chloride 107 Carbon Dioxide 27.0 Anion Gap 3 L BUN 14 Creatinine 0.54 L Estim Creat Clear Calc 232.08 Est GFR (MDRD) Af Amer 156 Est GFR (MDRD) Non-Af 129 BUN/Creatinine Ratio 26.0 H Glucose 132 H Calcium 9.1 Serum , Qual NEGATIVE Urine Opiates Screen NEGATIVE Urine Methadone Screen NEGATIVE Ur Barbiturates Screen NEGATIVE Ur Phencyclidine Scrn NEGATIVE Ur Amphetamines Screen NEGATIVE MDMA (Ecstasy) Screen NEGATIVE U Benzodiazepines Scrn NEGATIVE Urine Cocaine Screen NEGATIVE U Cannabinoids Screen NEGATIVE Ur Drug Screen Comment Ethyl Alcohol < 3.0 EKG Initial EKG: Attestation: I personally reviewed and interpreted this EKG as follows: Interpretation: Sinus Rhythm (90) and No Acute Injury Pattern Comments: EKG was obtained. On my independent interpretation, it showed a normal sinus rhythm with a rate of 90. MS interval, QRS interval, and QTc in tervals were all normal. Arrey was normal. There are no acute ST or T wave changes. 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 These were ordered. Treatment and Re-Evaluation :: Patient is medically cleared. Patient is agreeable to have crisis counselor evaluate her. Crisis counselor was in to evaluate the patient and recommended admission to psychiatric facility. She will attempt to place the patient in a psychiatric facility. Patient is agreeable with this. All questions were answered. Discharge Plan Triage Chief Complaint: Anxiety ED Provider: Yosef Viramontes Dx/Rx/DC Orders Clinical Impression: Acute post-traumatic stress disorder, Suicidal ideations, Anxiety Prescriptions: No Action albuterol sulfate 90 mcg/actuation HFA aerosol inhaler 2 puff INHALATION Q4H PRN (Reason: sob wheezying) Patient Comments: INHALE 2 PUFFS BY MOUTH EVERY 4 HOURS NEEDED FOR SHORTNESS OF BREATH OR WHEEZING FOR UP TO 30 DAYS buprenorphine-naloxone 8-2 mg film 1 film sublingual Q24H Patient Comments: PLACE 1 STRIP UNDER THE TONGUE THREE TIMES DAILY FOR 28 DAYS gabapentin 300 mg capsule 400 mg PO Q8H lisinopril 40 mg tablet 40 mg PO DAILY Patient Comments: TAKE 1 TABLET BY MOUTH ONCE DAILY Primary Care Provider: Care Physician,No Primary Referrals: Care Physician,No Primary [Primary Care Provider] - Disposition Disposition: Psychiatric Hospital or Unit
[2023-05-25] MEDS: hydrOXYzine PAM 25 MG Capsule PO (16:47)
[2023-05-25 17:11] LABS: Absolute Lymphocyte Count 2.23 X10^3/uL (0.83-4.51); Absolute Neutrophil Count 3.7 X10^3/uL (2.0-7.7); Basophil# 0.05 X10^3/uL; Basophil% 0.7 % (0-1); Eosinophil# 0.47 X10^3/uL; Eosinophils% 6.9 % (0-5); Hematocrit 44.7 % (37-47); Hemoglobin 14.5 g/dL (12.0-15.0); Lymphocyte # 2.23 X10^3/ul (0.83-4.51); Lymphocyte % 32.7 % (19-41); Mean Corp Hgb Conc 32.4 g/dL (32-36); Mean Corpuscular Hgb 29.3 pg (27.0-32.0); Mean Corpuscular Volume 90.3 fL (81-99); Mean Platelet Vol. 10.8 fl (6.2-12.0); Monocyte# 0.37 X10^3/uL; Monocyte% 5.4 % (0-10); NRBC Flagged by Analyzer 0 % (0-5); Neutrophil # 3.69 X10^3/uL (2.7-7.7); Neutrophil % 54.2 % (47-70); POSITIVE COUNT YES; RBC Distribution Width CV 12.1 % (11.6-14.6); RBC Distribution Width SD 39.9 fl (35.1-43.9); Red Blood Count 4.95 M/mm3 (4.2-5.4); White Blood Count 6.8 K/mm3 (4.4-11.0)
[2023-05-25 17:19] LABS: Differential Indicated SCAN CRITERIA MET
[2023-05-25 17:27] LABS: Anion Gap 3 (5-15); BUN 14 mg/dL (7-18); Calcium,Total 9.1 mg/dL (8.5-10.1); Chloride 107 mmol/L (98-107); Creatinine, Serum 0.54 mg/dL (0.55-1.02); EST Glomerular Filtration Rate 129 mL/min (>60); Est Glom Filt Rate - Afr Amer 156 mL/min (>60); Estimated Creatinine Clearance 232.08 ml/min; Glucose 132 mg/dL (74-106); Potassium 4.2 mmol/L (3.5-5.1); Sodium Level 137 mmol/L (136-145)
[2023-05-25 17:28] LABS: Alcohol, Blood (Medical)-Serum < 3.0 mg/dL
[2023-05-25 17:37] LABS: Internal QC Validated? YES +Cl - CLEAR BKGD; Pregnancy, Serum, hCG Quali. NEGATIVE Negative
[2023-05-25 17:58] LABS: Anisocytosis RARE; Macrocytosis RARE; Platelet Estimate ADEQUATE (ADEQ); Red Cell Morphology N CHROM NORMAL (NORM C&C)
[2023-05-25 18:16] LABS: Amphetamine Urine VISTA NEGATIVE (<1000 ng/mL); Barbiturate Urine VISTA NEGATIVE (< 200 ng/mL); Benzodiazepine Urine VISTA NEGATIVE (< 200 ng/mL); Cocaine Urine VISTA NEGATIVE (< 300 ng/mL); Ecstacy Urine VISTA NEGATIVE (< 500 ng/mL); Methadone Urine VISTA NEGATIVE (< 300 ng/mL); PCP Urine VISTA NEGATIVE (< 25 ng/mL); THC Urine VISTA NEGATIVE (< 50 ng/mL); Vista UDS pH Range 6
[2023-05-25 19:00] VITALS: BP 141/91; PULSE 81; RESP 16; O2SAT 95
--- NOTE | 2023-05-25 19:40 | NURSING ---
CALLED [facility] AT 1940 AND FAXED CHART
--- NOTE | 2023-05-26 04:20 | ED.RN ---
Report given to Tessie GUZMAN at [facility]. RN requested dayshift RN to call when pt is leaving [facility].
[2023-05-26 06:47] VITALS: BP 127/88; PULSE 89; RESP 17; TEMP 36.6; O2SAT 95
[2023-05-26] MEDS: Acetaminophen 325 MG Tablet 650 MG PO (06:57)
[2023-05-26 08:00] VITALS: BP 128/76; PULSE 84; RESP 16; TEMP 36.7; O2SAT 96
--- NOTE | 2023-05-26 09:05 | NURSING ---
05/26/23@0905- CALLED [facility] PER REQUEST TO NOTIFY THE FACILITY THAT THE PT IS ON THE WAY. PT UPDATE GIVEN. ALL QUESTIONS ANSWERED.
== END 2023-05-26 09:08 ==
PROVIDERS: Emergency Provider Emergency Medicine; Referring Provider Emergency Medicine; Visit Provider Emergency Medicine
DX: F43.11 Post-traumatic stress disorder, acute (principal); J44.9 Chronic obstructive pulmonary disease, unspecified; F41.9 Anxiety disorder, unspecified; R45.851 Suicidal ideations; F17.210 Nicotine dependence, cigarettes, uncomplicated; I10 Essential (primary) hypertension; E66.9 Obesity, unspecified; Z79.899 Other long term (current) drug therapy; Z86.711 Personal history of pulmonary embolism
CPT/HCPCS: 36415; 80048; 80307; 80320; 84703; 85025; 87811; 93005; 99283; G0480

== ENCOUNTER 2023-06-09 12:30 | Emergency (ER) | payer MEDICAID, SELFPAY ==
[2023-06-09 12:30] VITALS: BP 164/96; PULSE 90; RESP 22; TEMP 36.4; O2SAT 93; BMI 55.0
--- NOTE | 2023-06-09 12:55 | EX.ED.DYSGE1 ---
HPI <MESFIN Ho - Last Filed: 06/09/23 14:27> History of Present Illness Chief Complaint: Cough Narrative Narrative: Patient is a 48-year-old female with history of morbid obesity, COPD, asthma, hypertension presents the emergency department with 3 to 4 days of worsening cough, chills, increased shortness of breath. Patient smoked for many years however quit in November 2022. Patient states that she is noticed that she is getting herself more short of breath with exertion, hearing more wheezing. She does have nebulizers at home however they seem to not be working as well. Here for evaluation. [facility] <MESFIN Ho - Last Filed: 06/09/23 14:27> [facility] Medical History COPD (chronic obstructive pulmonary disease) Fentanyl use disorder, mild, in sustained remission, abuse Former smoker HTN (hypertension) Pulmonary emboli Home Medications albuterol sulfate 90 mcg/actuation aerosol inhaler 2 puff inhalation Q4H PRN sob wheezying 05/11/23 [History Last Taken 05/11/23] buprenorphine 8 mg-naloxone 2 mg sublingual film 1 film sublingual Q24H 05/11/23 [History Last Taken Unknown] gabapentin 300 mg capsule 400 mg PO Q8H 05/11/23 [History Last Taken Unknown] lisinopril 40 mg tablet 40 mg PO DAILY 05/11/23 [History Last Taken Unknown] albuterol sulfate 90 mcg/actuation breath activated powder inhaler,sensor 2 inh inhalation Q6H #1 ea 06/09/23 [Rx Last Taken Unknown] prednisone 50 mg tablet 50 mg PO DAILY #5 tabs 06/09/23 [Rx Last Taken Unknown] Allergy/AdvReac Type Severity Reaction Status Date / Time No Known Allergies Allergy Verified 05/25/23 15:34 Surgical History History of cholecystectomy History of open reduction and internal fixation (ORIF) procedure Social History Smoking Status: Current every day smoker tobacco type: cigarettes ROS <MESFIN Ho - Last Filed: 06/09/23 14:27> ROS ED ROS Narrative Constitutional: Negative for fever, chills, weight loss, weakness Eyes: Negative for vision loss, vision change, double vision ENT: Negative for any sore throat, ear pain, congestion Cardiovascular: Negative for any chest pain, tightness, palpitations Respiratory: Negative for any sputum production, hemoptysis. Positive for cough, dyspnea, dyspnea on exertion, orthopnea Gastrointestinal: Negative for any abdominal pain, nausea, vomiting, diarrhea, constipation, blood in stool, blood in vomit : Negative for any urinary frequency, dysuria, retention, blood in urine Muscle skeletal: Negative for any neck pain, back pain Neurological: Negative for any headache, syncope, dizziness Skin: Negative for any rashes, itching, abrasions, lacerations Psychiatric: Negative for any depression, anxiety, stress, suicidal ideation, homicidal ideation Hematologic: Negative for any excessive bruising, easy bleeding EXAM <MESFIN Ho - Last Filed: 06/09/23 14:27> Physical Exam Narrative Exam Narrative: Vital signs reviewed. HEET: Head normocephalic atraumatic, TMs clear bilaterally. Posterior pharynx is clear, moist mucous membranes. Nares clear bilaterally. Neck: Supple with no lymphadenopathy or tenderness. No signs of meningismus. Cardiac: Regular rate and rhythm no murmurs gallops or rubs, equal peripheral pulses bilaterally. Respiratory: Patient diffuse expiratory wheezes throughout pulmonary exam. No chest tenderness. Abdomen: Soft, nontender, nondistended. No abdominal bruit or pulsatile masses. No hepatosplenomegaly Extremities: No peripheral edema, no signs of gross trauma or deformity. Active full range of motion of all extremities. Neuro: Cranial nerves II through XII intact, no focal neurological deficits. Skin: Clean dry and intact with no rash, purpura, petechiae, vesicles or pustules. Backs/flank: No CVA tenderness, no midline spinal tenderness, no deformity. Psych: Normal mood and affect. No SI, HI or acute psychosis. Const Vital Signs: 06/09/23 12:30 06/09/23 12:44 06/09/23 13:20 Temperature 97.5 F L Temperature Source Temporal Pulse Rate 90 84 Respiratory Rate 22 H 17 Respiratory Effort Normal Non-Labored Respiratory Depth Normal Respiratory Pattern Normal Normal Blood Pressure 164/96 H Blood Pressure Mean 118 Pulse Ox 93 Oxygen Delivery Method Room Air <Dr. Rob Greer MD - Last Filed: 06/09/23 13:53> Physical Exam Const Vital Signs: 06/09/23 12:30 06/09/23 12:44 06/09/23 13:20 Temperature 97.5 F L Temperature Source Temporal Pulse Rate 90 84 Respiratory Rate 22 H 17 Respiratory Effort Normal Non-Labored Respiratory Depth Normal Respiratory Pattern Normal Normal Blood Pressure 164/96 H Blood Pressure Mean 118 Pulse Ox 93 Oxygen Delivery Method Room Air [facility] <MESFIN Ho - Last Filed: 06/09/23 14:27> [facility] Radiography Diagnostic Testing: Clinical Impression(s) from Imaging Studies Chest X-Ray 06/09/23 12:56 IMPRESSION: No radiographic evidence of acute cardiopulmonary disease. Electronically Signed: Agustín Hurtado MD at 13:59 EST , Treatment and Re-Evaluation :: Patient appears generally well, patient appears nontoxic, vital signs are stable. Presenting to the emergency department with complaints of cough, congestion, difficulty breathing over the last 3 to 4 days. Differential diagnose includes COPD/asthma exacerbation, viral syndrome such as COVID-19 influenza or RSV, community-acquired pneumonia. Two-view chest x-ray will be ordered. All radiologic examinations were read, reviewed by the emergency department attending. From these reads, a plan of care will be put in place. Patient be reevaluated after treatment Patient did have some relief of symptoms after breathing treatments, oral steroids. Patient's chest x-ray two-view showed no radiographic evidence of acute cardiopulmonary disease. Patient's COVID influenza RSV was negative. At this time, patient be diagnosed with an asthma exacerbation. Patient will be treated with steroids for 5 days. She was given ibuprofen here for headache. She is instructed return for any worsening symptoms. Patient likely is suffering from a virus, as caking of her asthma. She will return for any worsening symptoms. <Dr. Rob Greer MD - Last Filed: 06/09/23 13:53> [facility] Narrative Medical decision making narrative: I have personally performed a face to face assessment of the patient and have reviewed the KENDELL Note. I performed a substantive portion of the visit including all aspects of the following. My bangura findings include: History is [48-year-old female several day history of URI symptoms. History of COPD with wheezing. Cough.] Exam is [ Well-appearing 48-year-old female. Vital signs stable afebrile. Pulse ox 93% on room air no hypoxia. H EENT exam unremarkable. Neck nontender no JVD. Lungs dry cough. Few scattered expiratory wheezes. No rales or rhonchi. Equal symmetrical. Heart regular rhythm rate about 85 no murmur. Chest wall nontender. Abdomen soft nontender. Moving all 4 extremities. Nontender no edema. Neurologically she is awake alert no focal motor deficits.] Medical Decision Making [ 48-year-old with URI symptoms most likely viral URI with exacerbation of COPD. Aerosols and prednisone. Chest x-ray shows no signs of pneumonia.] Other additions or changes: [None] History & Record Review Discussion w/independent historian: Patient Additional record(s) reviewed:: Prior inpatient record, Prior outpatient record, Prior ED visit and Prior labs Radiography Chest X-Ray - ED: 1 View, Read by ED Physician, Normal, Heart, Lungs, Mediastinum, Bony Structures, No Acute Disease and Chronic Changes Diagnostic Testing: Clinical Impression(s) from Imaging Studies Chest X-Ray 06/09/23 12:56 IMPRESSION: No radiographic evidence of acute cardiopulmonary disease. Electronically Signed: Agustín Hurtado MD at 13:59 EST Reading Location ID and State: [address] [place] [address] Tel , Service support , Chest x-ray, portable, single view, so shows no acute abnormality. Normal cardiac silhouette. Normal lung murray. No pneumonia. Discharge Plan Triage Chief Complaint: Cough ED Midlevel Provider: Ridge Pulido ED Provider: Rob Greer Dx/Rx/DC Orders Clinical Impression: Asthma exacerbation, Viral syndrome Instructions: ED Viral Syndrome (Adult), Asthma Prescriptions: New albuterol sulfate 90 mcg/actuation aero powdr breath act w/sensor 2 inh inhalation Q6H Qty: 1 1RF prednisone 50 mg tablet 50 mg PO DAILY Qty: 5 0RF No Action albuterol sulfate 90 mcg/actuation HFA aerosol inhaler 2 puff INHALATION Q4H PRN (Reason: sob wheezying) Patient Comments: INHALE 2 PUFFS BY MOUTH EVERY 4 HOURS NEEDED FOR SHORTNESS OF BREATH OR WHEEZING FOR UP TO 30 DAYS buprenorphine-naloxone 8-2 mg film 1 film sublingual Q24H Patient Comments: PLACE 1 STRIP UNDER THE TONGUE THREE TIMES DAILY FOR 28 DAYS gabapentin 300 mg capsule 400 mg PO Q8H lisinopril 40 mg tablet 40 mg PO DAILY Patient Comments: TAKE 1 TABLET BY MOUTH ONCE DAILY Primary Care Provider: Care Physician,No Primary Referrals: Care Physician,No Primary [Primary Care Provider] - Activity Restrictions/Additional Instructions: Viral use albuterol inhaler, take the prednisone until finished. You are likely suffering from a viral-like infection. Return for any worsening symptoms Disposition Disposition: Home, Self Care
--- NOTE | 2023-06-09 12:56 | RAD_ITS ---
INDICATION: cough EXAMINATION/TECHNIQUE: X-RAY - XR Chest 2 Views COMPARISON: Prior study dated: 05/22/2023 FINDINGS: LINES/DEVICES: None. LUNGS: No consolidation, edema or effusion. No pneumothorax. MEDIASTINUM AND CARDIOVASCULAR STRUCTURES: Cardiac silhouette not enlarged. Central airways and mediastinal contour are unremarkable. BONES AND SOFT TISSUES: Unremarkable. RAD/Chest PA and Lateral IMPRESSION: No radiographic evidence of acute cardiopulmonary disease. Electronically Signed: Agustín Hurtado MD at 13:59 EST ,
[2023-06-09] MEDS: predniSONE 20 MG Tablet 60 MG PO (13:05)
[2023-06-09] MEDS: Ipratropium/Albuterol Sulfate 3 ML AMPUL.NEB INHALATION (13:10)
[2023-06-09] MEDS: Albuterol 2.5 MG/3 ML VIAL.NEB. 5 MG INHALATION (13:14)
[2023-06-09 13:20] VITALS: PULSE 84; RESP 17
[2023-06-09] MEDS: Ibuprofen 600 MG Tablet PO (15:00)
[2023-06-09 15:01] VITALS: BP 156/100; PULSE 101; RESP 18; O2SAT 94
== END 2023-06-09 15:04 | disposition home or self-care (01) ==
PROVIDERS: Emergency Provider Emergency Medicine; Visit Provider Emergency Medicine
DX: J44.1 Chronic obstructive pulmonary disease with (acute) exacerbation (principal); Z68.43 Body mass index [BMI] 50.0-59.9, adult; E66.01 Morbid (severe) obesity due to excess calories; B34.9 Viral infection, unspecified; I10 Essential (primary) hypertension; F17.210 Nicotine dependence, cigarettes, uncomplicated; Z79.899 Other long term (current) drug therapy
CPT/HCPCS: 94640; 71046; 87631; 99283

== ENCOUNTER 2023-07-14 16:02 | Emergency (ER) | payer MEDICAID, SELFPAY ==
[2023-07-14 16:03] VITALS: BP 150/110; PULSE 112; RESP 18; TEMP 36.3; O2SAT 93; BMI 57.2
--- NOTE | 2023-07-14 16:35 | EDS_ITS ---
HPI History of Present Illness Chief Complaint: Shortness of Breath Informant: patient Narrative Narrative: 48-year-old female presenting to the emergency room with dyspnea. Patient states she saw her doctor who handles her Suboxone in [place] on Saturday was concerned about potential fluid in her lungs. She does not have a history of CHF. She does note dyspnea with exertion. No significant lower extremity swelling. No chest pains. She states she is most likely has sleep apnea and was told that she needs to get a sleep study. She notes that since becoming sober about a year and a half ago she has gained over 100 pounds which is also contributing to some breathing issues. She states she has been referred to bariatric surgery. She currently takes lisinopril for hypertension. She occasionally vapes is no longer smoking. She does state that her heart rate is generally around 100 on the high side . PFSH [facility] Medical History COPD (chronic obstructive pulmonary disease) Fentanyl use disorder, mild, in sustained remission, abuse Former smoker HTN (hypertension) Pulmonary emboli Home Medications albuterol sulfate 90 mcg/actuation aerosol inhaler 2 puff inhalation Q4H PRN sob wheezying 05/11/23 [History Last Taken 05/11/23] buprenorphine 8 mg-naloxone 2 mg sublingual film 1 film sublingual Q24H 05/11/23 [History Last Taken Unknown] gabapentin 300 mg capsule 400 mg PO Q8H 05/11/23 [History Last Taken Unknown] lisinopril 40 mg tablet 40 mg PO DAILY 05/11/23 [History Last Taken Unknown] albuterol sulfate 90 mcg/actuation breath activated powder inhaler,sensor 2 inh inhalation Q6H #1 ea 06/09/23 [Rx Last Taken Unknown] prednisone 50 mg tablet 50 mg PO DAILY #5 tabs 06/09/23 [Rx Last Taken Unknown] prednisone 20 mg tablet 60 mg (3 x 20 mg) PO DAILY #12 TABLETS 07/14/23 [Rx Last Taken Unknown] Allergy/AdvReac Type Severity Reaction Status Date / Time No Known Allergies Allergy Verified 05/25/23 15:34 Surgical History History of cholecystectomy History of open reduction and internal fixation (ORIF) procedure Social History Smoking Status: Current every day smoker tobacco type: cigarettes ROS ROS ED Constitutional Constitutional ED: Denies chills, fever(s) or weight loss Eyes Eyes: Denies change in vision or diplopia ENT ENT ED: Denies ear pain, rhinorrhea or sore throat Cardiovascular Cardiovascular: Denies chest pain, orthopnea, palpitations or racing heartbeat Respiratory/Chest Respiratory/Chest: Reports cough, dyspnea and dyspnea on exertion; Denies orthopnea Gastrointestinal Gastrointestinal: Denies abdominal pain, diarrhea, nausea or vomiting Genitourinary Genitourinary ED: Denies dysuria, hematuria or urinary frequency Musculoskeletal Musculoskeletal: Denies arthralgias or myalgias Integumentary Denies abscess or rash Neurologic Neurologic: Denies headache(s) or weakness Psychiatric Psychiatric: Denies anxiety, depression, suicidal ideation or suicidal thoughts Endocrine Endocrinology: Denies polydipsia, polyphagia or polyuria Allergic/Immunologic Allergic/Immunologic ED: Denies mouth swelling, tongue swelling or urticaria EXAM Physical Exam Const Vital Signs: 07/14/23 16:03 07/14/23 16:02 07/14/23 17:00 Temperature 97.4 F L Temperature Source Temporal Pulse Rate 112 H Respiratory Rate 18 Respiratory Effort Short of Breath Respiratory Depth Normal Respiratory Pattern Normal Blood Pressure 150/110 H 167/76 H Blood Pressure Mean 123 106 Pulse Ox 93 Oxygen Delivery Method Room Air Room Air 07/14/23 18:26 Temperature 97.6 F L Temperature Source Pulse Rate 89 Respiratory Rate 16 Respiratory Effort Respiratory Depth Respiratory Pattern Blood Pressure 142/88 H Blood Pressure Mean 106 Pulse Ox 99 Oxygen Delivery Method Positive well nourished, well developed and obese General Appearance ED: well developed Nutritional Appearance: obese HEENT Reports normocephalic, head/scalp atraumatic and moist mucous membranes Eyes PERRL and EOMs intact bilaterally Neck no lymphadenopathy, supple and no JVD Resp normal respiratory effort and clear to auscultation bilaterally Cardio regular rate, regular rhythm and no murmurs Rate: tachycardic GI normal to inspection, nondistended, normoactive bowel sounds and non-tender Palpation: soft Back/Spine no CVA tenderness and normal ROM Extremity normal to inspection General Extremety ED: Negative for edema General Extremity: Negative for edema Neuro oriented x3 and CN's II-XII intact bilaterally Sensorium / Orientation: alert Motor Exam: strength 5/5 throughout Psych mental status grossly normal Mood & Affect: Negative for depressed or tearful Skin no rashes or lesions noted and no wounds MDM MDM MDM Narrative Medical decision making narrative: My independent interpretation of the chest x-ray is no acute process. Basic blood work showed a normal BNP and troponin. EKG shows a sinus tachycardia without ACS features. Hemoglobin 14.7 platelet count of 182. Creatinine 0.58. Patient's blood pressure is 167/76. This is the reading that I have asked nursing to ensure that we have adequate cuff placement and the appropriate size given body habitus. Bovie results were discussed with the patient. Not seeing evidence of pleural effusion heart failure either systolic or diastolic ACS. She notes some intermittent wheezing with her asthma and is wondering if she can try a short course of prednisone to help with that. I think that is reasonable request. Patient will be monitoring her blood pressure and following up with her doctor discussed the readings to see if she needs any additional BP agent. I do not think the patient has pulmonary embolism. She not have any chest pain. She is not dyspneic at rest. No evidence of right heart strain on EKG or troponin. History & Record Review Discussion w/independent historian: Patient and Friend Lab Data Attestation: I reviewed the patient's lab results. Labs: Laboratory Results - last 24 hr 07/14/23 16:45 WBC 5.7 RBC 5.08 Hgb 14.7 Hct 46.1 MCV 90.7 MCH 28.9 MCHC 31.9 L RDW Std Deviation 40.7 RDW Coeff of [place] 12.3 Plt Count 182 MPV 10.4 Immature Gran % (Auto) 0.200 Neut % (Auto) 51.9 Lymph % (Auto) 32.9 [place] % (Auto) 5.4 Eos % (Auto) 9.1 H Baso % (Auto) 0.5 Absolute Neuts (auto) 3.0 Absolute Lymphs (auto) 1.89 Nucleated RBC % 0 Sodium 140 Potassium 4.0 Chloride 107 Carbon Dioxide 30.0 Anion Gap 3 L BUN 12 Creatinine 0.58 Estim Creat Clear Calc 221.23 Est GFR (MDRD) Af Amer 144 Est GFR (MDRD) Non-Af 119 BUN/Creatinine Ratio 20.8 H Glucose 100 Calcium 8.8 Troponin I High Sens 6 B-Natriuretic Peptide 12.0 Radiography Diagnostic Testing: Clinical Impression(s) from Imaging Studies Chest X-Ray 07/14/23 17:12 IMPRESSION: Normal x-ray examination of the chest. Electronically Signed: Ezra Chairez MD at 17:37 EDT Reading Location ID and State: [facility] / [place] Tel , Service support , EKG Initial EKG: Attestation: I personally reviewed and interpreted this EKG as follows: Comments: Sinus tachycardia ventricular rate of 104 bpm Discharge Plan Triage Chief Complaint: Shortness of Breath ED Provider: Barry Slade Dx/Rx/DC Orders Clinical Impression: Acute dyspnea, Hypertension Prescriptions: New prednisone 20 mg tablet 60 mg PO DAILY Qty: 12 0RF No Action albuterol sulfate 90 mcg/actuation aero powdr breath act w/sensor 2 inh inhalation Q6H Qty: 1 1RF prednisone 50 mg tablet 50 mg PO DAILY Qty: 5 0RF albuterol sulfate 90 mcg/actuation HFA aerosol inhaler 2 puff INHALATION Q4H PRN (Reason: sob wheezying) Patient Comments: INHALE 2 PUFFS BY MOUTH EVERY 4 HOURS NEEDED FOR SHORTNESS OF BREATH OR WHEEZING FOR UP TO 30 DAYS buprenorphine-naloxone 8-2 mg film 1 film sublingual Q24H Patient Comments: PLACE 1 STRIP UNDER THE TONGUE THREE TIMES DAILY FOR 28 DAYS gabapentin 300 mg capsule 400 mg PO Q8H lisinopril 40 mg tablet 40 mg PO DAILY Patient Comments: TAKE 1 TABLET BY MOUTH ONCE DAILY Primary Care Provider: JEAN ESPINOZA Referrals: Care Physician,No Primary [Non-Staff] - Disposition Disposition: Home, Self Care Discharge Date/Time: 07/14/23 18:27
--- NOTE | 2023-07-14 16:35 | EKG12_ITS ---
Test Reason : SOB Blood Pressure : / mmHG Vent. Rate : 104 BPM Atrial Rate : 104 BPM P-R Int : 140 ms QRS Dur : 092 ms QT Int : 336 ms P-R-T Axes : 070 031 023 degrees QTc Int : 441 ms Sinus tachycardia Otherwise normal ECG Confirmed by CHAN GOVEA, YAIR ([id number]), editor farm journal VIVIANE ORTIZ ([id number]) on 07/16/2023 10:48:34 AM Referred By: Confirmed By:YAIR GILES MD
[2023-07-14 16:58] LABS: Absolute Lymphocyte Count 1.89 X10^3/uL (0.83-4.51); Basophil# 0.03 X10^3/uL; Basophil% 0.5 % (0-1); Eosinophil# 0.52 X10^3/uL; Eosinophils% 9.1 % (0-5); Hematocrit 46.1 % (37-47); Hemoglobin 14.7 g/dL (12.0-15.0); Lymphocyte # 1.89 X10^3/ul (0.83-4.51); Lymphocyte % 32.9 % (19-41); Mean Corp Hgb Conc 31.9 g/dL (32-36); Mean Corpuscular Hgb 28.9 pg (27.0-32.0); Mean Corpuscular Volume 90.7 fL (81-99); Mean Platelet Vol. 10.4 fl (6.2-12.0); Monocyte# 0.31 X10^3/uL; Monocyte% 5.4 % (0-10); NRBC Flagged by Analyzer 0 % (0-5); Neutrophil # 2.98 X10^3/uL (2.7-7.7); Neutrophil % 51.9 % (47-70); Platelet Count 182 K/mm3 (150-450); RBC Distribution Width CV 12.3 % (11.6-14.6); RBC Distribution Width SD 40.7 fl (35.1-43.9); Red Blood Count 5.08 M/mm3 (4.2-5.4); White Blood Count 5.7 K/mm3 (4.4-11.0)
[2023-07-14 17:00] VITALS: BP 167/76
--- NOTE | 2023-07-14 17:12 | RAD_ITS ---
STUDY: X-RAY CHEST REASON FOR EXAM: Female, 48 years old. dyspnea TECHNIQUE: Single AP portable view of the chest. COMPARISON: 06/09/2023 FINDINGS: The lungs are clear and expanded. There is no demonstrated pleural abnormality. Normal size heart. Normal mediastinum and sukhwinder. Normal visualized pulmonary arteries. Normal visualized aortic arch and descending thoracic aorta. Normal visualized thoracic spine. Normal visualized ribs, clavicles, and shoulders. There is no demonstrated abnormality of the visualized soft tissue structures of the upper abdomen. RAD/Chest 1 View (Portable) IMPRESSION: Normal x-ray examination of the chest. Electronically Signed: Ezra Chairez MD at 17:37 EDT ,
[2023-07-14 17:15] LABS: Anion Gap 3 (5-15); BUN 12 mg/dL (7-18); BUN/Creat Ratio 20.8 RATIO (10-20); Calcium,Total 8.8 mg/dL (8.5-10.1); Chloride 107 mmol/L (98-107); Creatinine, Serum 0.58 mg/dL (0.55-1.02); EST Glomerular Filtration Rate 119 mL/min (>60); Est Glom Filt Rate - Afr Amer 144 mL/min (>60); Estimated Creatinine Clearance 221.23 ml/min; Glucose 100 mg/dL (74-106); Sodium Level 140 mmol/L (136-145); Troponin-I HS 6 pg/mL (3.0-54.0)
[2023-07-14] MEDS: predniSONE 20 MG Tablet 60 MG PO (18:25)
[2023-07-14 18:26] VITALS: BP 142/88; PULSE 89; RESP 16; TEMP 36.4; O2SAT 99
== END 2023-07-14 18:27 | disposition home or self-care (01) ==
PROVIDERS: Emergency Provider Emergency Medicine; Visit Provider Emergency Medicine
DX: R06.00 Dyspnea, unspecified (principal); J44.9 Chronic obstructive pulmonary disease, unspecified; I10 Essential (primary) hypertension; F17.210 Nicotine dependence, cigarettes, uncomplicated; E66.9 Obesity, unspecified; Z86.711 Personal history of pulmonary embolism
CPT/HCPCS: 71045; 80048; 83880; 84484; 85025; 93005; 99284; A4216

== ENCOUNTER 2023-07-24 11:09 | Emergency (ER) | payer MEDICAID, SELFPAY ==
[2023-07-24 11:09] VITALS: BP 143/107; PULSE 110; RESP 18; TEMP 36.5; O2SAT 90
--- NOTE | 2023-07-24 11:11 | ED.RN ---
PT REFUSING TO STAND ON SCALE. STATES I HAVE A HEADACHE AND IT HURTS AND IM NOT STANDING HERE ALL DAY TO GET IT TO READ.
--- NOTE | 2023-07-24 11:21 | EX.ED.VIS.HA ---
HPI History of Present Illness Chief Complaint: Headache Detail of Chief Complaint: Headache Informant: patient Narrative Narrative: Patient presents with headache that started at 2 AM when she woke up to use restroom she noticed it. It is frontal. She describes some photophobia and some nausea. Patient states she has had a little bit of chest congestion for couple days. Patient has history of asthma and COPD but does not wear home O2. Denies any fevers. She has had a mild cough. Patient denies any falls or head injuries. She typically does not have headaches. She denies family history of brain tumors or aneurysms. Currently rates her headache an 8 or 9 out of 10. [facility] Medical History COPD (chronic obstructive pulmonary disease) Fentanyl use disorder, mild, in sustained remission, abuse Former smoker HTN (hypertension) Pulmonary emboli Home Medications albuterol sulfate 90 mcg/actuation aerosol inhaler 2 puff inhalation Q4H PRN sob wheezying 05/11/23 [History Last Taken 05/11/23] buprenorphine 8 mg-naloxone 2 mg sublingual film 1 film sublingual Q24H 05/11/23 [History Last Taken Unknown] lisinopril 40 mg tablet 40 mg PO DAILY 05/11/23 [History Last Taken Unknown] albuterol sulfate 90 mcg/actuation breath activated powder inhaler,sensor 2 inh inhalation Q6H #1 ea 06/09/23 [Rx Last Taken Unknown] prednisone 20 mg tablet 20 mg PO BID #6 tabs 07/24/23 [Rx Last Taken Unknown] Allergy/AdvReac Type Severity Reaction Status Date / Time No Known Allergies Allergy Verified 07/24/23 11:11 Surgical History History of cholecystectomy History of open reduction and internal fixation (ORIF) procedure Social History Smoking Status: Former smoker ROS ROS ED Review of Systems ROS Unobtainable: other Constitutional Constitutional ED: Reports lethargy; Denies chills, fever(s), sweats or weight loss Eyes Eyes: Denies blurry vision, change in vision or diplopia ENT ENT ED: Denies rhinorrhea or sore throat Cardiovascular Cardiovascular: Denies chest pain, orthopnea or racing heartbeat Respiratory/Chest Respiratory/Chest: Reports cough; Denies dyspnea, dyspnea on exertion, orthopnea or sputum Gastrointestinal Gastrointestinal: Reports nausea; Denies abdominal pain, diarrhea or vomiting Genitourinary Genitourinary ED: Denies dysuria, hematuria or urinary frequency Musculoskeletal Musculoskeletal: Denies arthralgias, back pain, myalgias or neck pain Integumentary Denies abscess, Abrasions or rash Neurologic Neurologic: Reports headache(s); Denies weakness Psychiatric Psychiatric: Denies anxiety, depression or suicidal thoughts Endocrine Endocrinology: Denies polydipsia, polyphagia or polyuria Hematologic/Lymphatic Hematologic/Lymphatic: Denies easy bleeding, easy bruising or lymphadenopathy Allergic/Immunologic Allergic/Immunologic ED: Denies mouth swelling, tongue swelling or urticaria EXAM Physical Exam Const Vital Signs: 07/24/23 11:09 07/24/23 11:31 07/24/23 13:00 Temperature 97.7 F L Temperature Source Temporal Pulse Rate 110 H 98 92 Respiratory Rate 18 16 22 H Blood Pressure 143/107 H 123/100 H Blood Pressure Mean 119 108 Pulse Ox 90 94 Oxygen Delivery Method Room Air 07/24/23 13:16 Temperature 98.2 F Temperature Source Pulse Rate 92 Respiratory Rate 22 H Blood Pressure 123/100 H Blood Pressure Mean 107 Pulse Ox 94 Oxygen Delivery Method Positive well nourished and well developed General Appearance ED: well developed and NAD HEENT Reports TM's clear and moist mucous membranes normocephalic and atraumatic; Negative for trauma or tenderness Tympanic Membrane ED: Yes TM's clear Eyes PERRL and EOMs intact bilaterally General Eye ED: Negative for pale conjunctiva or scleral icterus Neck no lymphadenopathy, supple and no JVD General: Negative for tenderness Chest Wall inspection of chest normal and palpation of chest normal Chest: Negative for tenderness Resp normal respiratory effort and clear to auscultation bilaterally Resp Narrative: Diminished breath sounds bilaterally with expiratory wheezes noted bilaterally. Mild tachypnea. No accessory muscle use or retractions. Pulse ox 86% on room air on monitor. Effort and Inspection: Negative for respiratory distress or pain with movement Auscultation: wheezes; Negative for rhonchi or diminished lung sounds Cardio regular rate, regular rhythm, S1 normal heart sound, S2 normal heart sound and no murmurs Peripheral Pulses: pulses 2+ throughout GI normal to inspection, nondistended, normoactive bowel sounds, soft to palpation, non-tender, non-distended and no masses Back/Spine no CVA tenderness and no thoracic nor lumbar tenderness Extremity normal to inspection General Extremety ED: Negative for edema General Extremity: Negative for edema Neuro oriented x3, CN's II-XII intact bilaterally, no sensory deficits noted and gait normal Sensorium / Orientation: awake, alert, oriented to person, oriented to place and oriented to time Motor Exam: strength 5/5 throughout and strength abnormal Psych mental status grossly normal Skin no rashes or lesions noted and no wounds MDM MDM MDM Narrative Medical decision making narrative: Patient presents with a headache that she noticed when she woke up in the middle the night with. Frontal with nausea and photophobia. Clinically I suspect migraine. Patient also with some congestion and cough and history of asthma but was hypoxic initially on arrival. I did give her a DuoNeb aerosol. She felt markedly improved after treatment. I will give her a dose of prednisone. Her O2 sat now in the 92 to 93% range on room air. She had an IV line established and she was given Reglan Benadryl and Toradol and her headaches mostly resolved rates it about a 3 or 4 out of 10 currently. Patient will be given a prescription for prednisone. I did do a COVID flu and RSV testing that was negative here. Patient did have chest x-ray that was unremarkable. Lab Data Attestation: I reviewed the patient's lab results. Radiography Diagnostic Testing: Clinical Impression(s) from Imaging Studies Chest X-Ray 07/24/23 11:35 IMPRESSION: No acute cardiopulmonary abnormality. No interval change. Electronically Signed: Francisco Anaya MD at 12:10 EDT , 1 view chest x-ray obtained interpreted by myself as no evidence of infiltrate or pneumothorax or acute disease process. Discharge Plan Triage Chief Complaint: Headache ED Provider: Adiel Lowe Dx/Rx/DC Orders Clinical Impression: Bronchitis, asthmatic, Migraine headache Instructions: ED Bronchitis with Wheezing (Adult), ED Headache Unspecified, ED, Migraine (Classical) Prescriptions: New prednisone 20 mg tablet 20 mg PO BID Qty: 6 0RF No Action albuterol sulfate 90 mcg/actuation aero powdr breath act w/sensor 2 inh inhalation Q6H Qty: 1 1RF albuterol sulfate 90 mcg/actuation HFA aerosol inhaler 2 puff INHALATION Q4H PRN (Reason: sob wheezying) Patient Comments: INHALE 2 PUFFS BY MOUTH EVERY 4 HOURS NEEDED FOR SHORTNESS OF BREATH OR WHEEZING FOR UP TO 30 DAYS buprenorphine-naloxone 8-2 mg film 1 film sublingual Q24H Patient Comments: PLACE 1 STRIP UNDER THE TONGUE THREE TIMES DAILY FOR 28 DAYS lisinopril 40 mg tablet 40 mg PO DAILY Patient Comments: TAKE 1 TABLET BY MOUTH ONCE DAILY Primary Care Provider: JEAN ESPINOZA Referrals: JEAN ESPINOZA [Other] Disposition Disposition: Home, Self Care Discharge Date/Time: 07/24/23 13:17
[2023-07-24] MEDS: Ipratropium/Albuterol Sulfate 3 ML AMPUL.NEB INHALATION (11:28)
[2023-07-24 11:31] VITALS: PULSE 98; RESP 16
--- NOTE | 2023-07-24 11:35 | RAD_ITS ---
EXAM: XR CHEST, 1 VIEW CLINICAL INDICATION: dyspnea TECHNIQUE: Frontal view of the chest. COMPARISON: XR Chest dated 07/14/2023 FINDINGS: LUNGS AND PLEURAL SPACES: Normal. No consolidation or edema. No pneumothorax. No effusion. HEART: Normal heart size. MEDIASTINUM: No mediastinal or hilar mass. BONES/JOINTS: No acute abnormality. RAD/Chest 1 View (Portable) IMPRESSION: No acute cardiopulmonary abnormality. No interval change. Electronically Signed: Francisco Anaya MD at 12:10 EDT ,
[2023-07-24] MEDS: 0.9% Normal Saline (1000mL) 1,000 ML 1000 ML IV (12:19)
[2023-07-24] MEDS: Ketorolac 30 MG/ML Syringe IV (12:19)
[2023-07-24] MEDS: DiphenhydrAMINE 50 MG/ML Syringe 25 MG IV (12:26)
[2023-07-24] MEDS: Metoclopramide 10 MG/2 ML Vial IV (12:30)
[2023-07-24] MEDS: dexAMETHasone 10 MG/ML Vial IV (12:35)
[2023-07-24 13:00] VITALS: BP 123/100; PULSE 92; RESP 22; O2SAT 94
[2023-07-24 13:16] VITALS: BP 123/100; PULSE 92; RESP 22; TEMP 36.8; O2SAT 94
== END 2023-07-24 13:17 | disposition home or self-care (01) ==
PROVIDERS: Emergency Provider Emergency Medicine; Visit Provider Emergency Medicine
DX: G43.909 Migraine, unspecified, not intractable, without status migrainosus (principal); J44.9 Chronic obstructive pulmonary disease, unspecified; R06.2 Wheezing; I10 Essential (primary) hypertension; Z79.51 Long term (current) use of inhaled steroids; Z79.899 Other long term (current) drug therapy; Z87.891 Personal history of nicotine dependence
CPT/HCPCS: 71045; 87631; 94640; 96361; 96374; 96375; 99283; J7030

== ENCOUNTER 2023-08-31 13:00 | Emergency (ER) | payer MEDICAID, SELFPAY ==
[2023-08-31 13:02] VITALS: BP 187/98; PULSE 104; RESP 24; TEMP 36; O2SAT 93
--- NOTE | 2023-08-31 13:12 | EKG12_ITS ---
Test Reason : SOB Blood Pressure : / mmHG Vent. Rate : 098 BPM Atrial Rate : 098 BPM P-R Int : 144 ms QRS Dur : 096 ms QT Int : 344 ms P-R-T Axes : 064 037 048 degrees QTc Int : 439 ms Normal sinus rhythm Normal ECG Confirmed by YAIR GILES MD ([id number]), staff editor VIVIANE ORTIZ ([id number]) on 09/02/2023 7:05:55 AM Referred By: SAMMIE Confirmed By:YAIR GILES MD
--- NOTE | 2023-08-31 13:14 | EDS_ITS ---
HPI History of Present Illness Chief Complaint: Shortness of Breath Informant: patient Onset/Context/Timing Onset: Yesterday Context: Gradual Onset Narrative Narrative: Patient presents secondary to increased shortness of breath with wheezing and cough. She has a history of COPD but does not require home oxygen. She does report using her aerosol treatments multiple times overnight. She states she had difficulty walking from room to room secondary to her shortness of breath. She does report some chest heaviness, mostly with cough. No fever or chills. No known exposure to COVID or influenza. [facility] Medical History COPD (chronic obstructive pulmonary disease) Fentanyl use disorder, mild, in sustained remission, abuse Former smoker HTN (hypertension) Pulmonary emboli Home Medications albuterol sulfate 90 mcg/actuation aerosol inhaler 2 puff inhalation Q4H PRN sob wheezying 05/11/23 [History Last Taken 05/11/23] buprenorphine 8 mg-naloxone 2 mg sublingual film 1 film sublingual Q24H 05/11/23 [History Last Taken Unknown] lisinopril 40 mg tablet 40 mg PO DAILY 05/11/23 [History Last Taken Unknown] albuterol sulfate 90 mcg/actuation breath activated powder inhaler,sensor 2 inh inhalation Q6H #1 ea 06/09/23 [Rx Last Taken Unknown] prednisone 20 mg tablet 20 mg PO BID #6 tabs 07/24/23 [Rx Last Taken Unknown] azithromycin 250 mg tablet (Zithromax) 250 mg PO DAILY 4 days #4 tabs 08/31/23 [Rx Last Taken Unknown] prednisone 10 mg tablet 10 mg PO DAILY #48 TABLETS 08/31/23 [Rx Last Taken Unknown] Allergy/AdvReac Type Severity Reaction Status Date / Time No Known Allergies Allergy Verified 08/31/23 13:01 Surgical History History of cholecystectomy History of open reduction and internal fixation (ORIF) procedure Social History Smoking Status: Former smoker ROS ROS ED Constitutional Constitutional ED: Reports chills; Denies fever(s) Eyes Eyes: Denies discharge from eye(s) ENT ENT ED: Denies discharge from eye(s), rhinorrhea or sore throat Cardiovascular Cardiovascular: Denies chest pain or palpitations Respiratory/Chest Respiratory/Chest: Reports cough and dyspnea Gastrointestinal Gastrointestinal: Denies abdominal pain, nausea or vomiting Musculoskeletal Musculoskeletal: Denies back pain or extremity pain Integumentary Denies Abrasions or rash Neurologic Neurologic: Denies headache(s) or weakness Psychiatric Psychiatric: Denies anxiety or depression Allergic/Immunologic Allergic/Immunologic ED: Denies lip swelling or urticaria EXAM Physical Exam Const Vital Signs: 08/31/23 13:02 08/31/23 13:23 08/31/23 14:24 Temperature 96.8 F L Temperature Source Temporal Pulse Rate 104 H 108 H Respiratory Rate 24 H 22 H Respiratory Effort Short of Breath Respiratory Depth Normal Respiratory Pattern Tachypnea Normal Blood Pressure 187/98 H Blood Pressure Mean 127 Pulse Ox 93 Oxygen Delivery Method Room Air Room Air Positive well nourished and well developed General Appearance ED: well developed HEENT Reports moist mucous membranes Eyes EOMs intact bilaterally Chest Wall inspection of chest normal and palpation of chest normal Resp Resp Narrative: Mild tachypnea with expiratory wheezes. Cardio regular rate and regular rhythm GI non-tender Palpation: soft Extremity normal to inspection Neuro oriented x3 and no sensory deficits noted Motor Exam: strength 5/5 throughout Psych mental status grossly normal Skin no rashes or lesions noted MDM MDM MDM Narrative Medical decision making narrative: Patient was on case monitor. EKG obtained to evaluate for cardiac arrhythm ia/ischemia. Patient given p.o. prednisone. Aerosols provided. Swab for COVID, influenza, and RSV obtained. History & Record Review Discussion w/independent historian: Patient Radiography Chest X-Ray - ED: 1 View, Read by ED Physician, Chronic Changes and No Infiltrates Diagnostic Testing: Clinical Impression(s) from Imaging Studies Chest X-Ray 08/31/23 13:45 IMPRESSION: No radiographic evidence of acute cardiopulmonary disease. Electronically Signed: Agustín Hurtado MD at 14:17 EDT , EKG Initial EKG: Attestation: I personally reviewed and interpreted this EKG as follows: Interpretation: Sinus Rhythm (Sinus at 98 with no acute ischemia.) Treatment and Re-Evaluation :: After initial round of aerosols patient's lungs are auscultated. She has increased air movement but also increased wheezing throughout. After short break she is given an additional DuoNeb and albuterol treatment. At this time her air movement is significantly improved but she does still have expiratory wheezes. Portable chest x-ray per my interpretation was chronic changes with no focal infiltrate. Swab for COVID, influenza, and RSV is negative. She will be treated with a prednisone taper. Given her underlying COPD with chills and cough I will also cover her with Zithromax, first dose given here. Patient has albuterol to use at home. Return instructions provided. Discharge Plan Triage Chief Complaint: Shortness of Breath ED Provider: Candelaria Minaya Dx/Rx/DC Orders Clinical Impression: COPD exacerbation Instructions: ED COPD Flare Prescriptions: New prednisone 10 mg tablet 10 mg PO DAILY Qty: 48 0RF Rx Instructions: 60mg po daily for 3 days, 40mg po daily for 3 days, 20mg po daily for 3 days, 10mg po daily for 3 days azithromycin [Zithromax] 250 mg tablet 250 mg PO DAILY 4 Days Qty: 4 0RF Rx Instructions: start on day 2 of therapy No Action albuterol sulfate 90 mcg/actuation aero powdr breath act w/sensor 2 inh inhalation Q6H Qty: 1 1RF albuterol sulfate 90 mcg/actuation HFA aerosol inhaler 2 puff INHALATION Q4H PRN (Reason: sob wheezying) Patient Comments: INHALE 2 PUFFS BY MOUTH EVERY 4 HOURS NEEDED FOR SHORTNESS OF BREATH OR WHEEZING FOR UP TO 30 DAYS buprenorphine-naloxone 8-2 mg film 1 film sublingual Q24H Patient Comments: PLACE 1 STRIP UNDER THE TONGUE THREE TIMES DAILY FOR 28 DAYS lisinopril 40 mg tablet 40 mg PO DAILY Patient Comments: TAKE 1 TABLET BY MOUTH ONCE DAILY prednisone 20 mg tablet 20 mg PO BID Qty: 6 0RF Primary Care Provider: JEAN ESPINOZA Referrals: JEAN ESPINOZA [Other] - 5-7 Days [facility] Doctor,Out of [Non-Staff] - Disposition Disposition: Home, Self Care
[2023-08-31] MEDS: Ipratropium/Albuterol Sulfate 3 ML AMPUL.NEB INHALATION ×2 (13:19→15:00)
[2023-08-31] MEDS: Albuterol 2.5 MG/3 ML VIAL.NEB. INHALATION ×3 (13:22→15:00)
[2023-08-31 13:23] VITALS: PULSE 108; RESP 22
--- NOTE | 2023-08-31 13:45 | RAD_ITS ---
INDICATION: sob EXAMINATION/TECHNIQUE: X-RAY - XR Chest 1 View COMPARISON: Prior study dated: 07/24/2023 FINDINGS: LINES/DEVICES: None. LUNGS: Hazy right lower lung opacity likely due to superimposed tissues. No focal infiltrate is seen. No evidence of pleural effusions. MEDIASTINUM AND CARDIOVASCULAR STRUCTURES: Cardiac silhouette not enlarged. Central airways and mediastinal contour are unremarkable. BONES AND SOFT TISSUES: Unremarkable. RAD/Chest 1 View (Portable) IMPRESSION: No radiographic evidence of acute cardiopulmonary disease. Electronically Signed: Agustín Hurtado MD at 14:17 EDT ,
[2023-08-31] MEDS: predniSONE 20 MG Tablet 60 MG PO (14:45)
[2023-08-31 15:00] VITALS: BP 147/78; PULSE 90; RESP 22; O2SAT 97
[2023-08-31] MEDS: Azithromycin 250 MG Tablet 500 MG PO (15:42)
[2023-08-31 16:00] VITALS: BP 147/78; PULSE 90; RESP 22; TEMP 36.4; O2SAT 97
== END 2023-08-31 16:58 | disposition home or self-care (01) ==
PROVIDERS: Emergency Provider Emergency Medicine; Visit Provider Emergency Medicine
DX: J44.1 Chronic obstructive pulmonary disease with (acute) exacerbation (principal); Z87.891 Personal history of nicotine dependence; Z86.711 Personal history of pulmonary embolism
CPT/HCPCS: 71045; 87631; 93005; 94640; 99284

== ENCOUNTER 2023-09-08 20:48 | Observation (INO) | payer MEDICAID, SELFPAY ==
[2023-09-08] VITALS (8 sets, daily range): BP systolic 148–158; BP diastolic 79–108; PULSE 95–108; RESP 19–35; TEMP 36.4; O2SAT 87–91; BMI 64.2
--- NOTE | 2023-09-08 21:27 | ED.VIS.DYS ---
HPI History of Present Illness Chief Complaint: Shortness of Breath Informant: patient Associated Symptoms cough Chest Pain: Positive for None Narrative Narrative: Patient has had about a week of what feels like a COPD flareup, cough with difficulty getting up sputum, lung tightness, wheezing. No orthopnea, fevers or chills, or worsening of her chronic lower extremity edema. She was seen here knee the beginning, she states they did nothing for me which in fact is not true, they prescribed the patient a prednisone taper which she has finished as well as a Z-Murphy which she took. She states she feels like she is getting worse although the albuterol she has been doing at home does help her tightness temporarily. She is not on oxygen at home. [facility] Medical History COPD (chronic obstructive pulmonary disease) Fentanyl use disorder, mild, in sustained remission, abuse Former smoker HTN (hypertension) Pulmonary emboli Home Medications albuterol sulfate 90 mcg/actuation aerosol inhaler 2 puff inhalation Q4H PRN sob wheezying 05/11/23 [History Last Taken 05/11/23] buprenorphine 8 mg-naloxone 2 mg sublingual film 1 film sublingual Q24H 05/11/23 [History Last Taken Unknown] lisinopril 40 mg tablet 40 mg PO DAILY 05/11/23 [History Last Taken Unknown] albuterol sulfate 90 mcg/actuation breath activated powder inhaler,sensor 2 inh inhalation Q6H #1 ea 06/09/23 [Rx Last Taken Unknown] prednisone 20 mg tablet 20 mg PO BID #6 tabs 07/24/23 [Rx Last Taken Unknown] azithromycin 250 mg tablet (Zithromax) 250 mg PO DAILY 4 days #4 tabs 08/31/23 [Rx Last Taken Unknown] prednisone 10 mg tablet 10 mg PO DAILY #48 TABLETS 08/31/23 [Rx Last Taken Unknown] Allergy/AdvReac Type Severity Reaction Status Date / Time No Known Allergies Allergy Verified 09/08/23 20:52 Surgical History History of cholecystectomy History of open reduction and internal fixation (ORIF) procedure Social History Smoking Status: Light Smoker (<10/day) ROS ROS ED Constitutional Constitutional ED: Reports fatigue and malaise; Denies chills or fever(s) Eyes Eyes: Denies change in vision or diplopia ENT ENT ED: Denies rhinorrhea or sore throat Cardiovascular Cardiovascular: Reports pedal edema; Denies chest pain, orthopnea or palpitations Respiratory/Chest Respiratory/Chest: Reports cough, dyspnea and dyspnea on exertion; Denies orthopnea Gastrointestinal Gastrointestinal: Denies abdominal pain, diarrhea, nausea or vomiting Genitourinary Genitourinary ED: Denies dysuria or hematuria Musculoskeletal Musculoskeletal: Denies back pain or neck pain Integumentary Denies abscess or rash Neurologic Neurologic: Denies headache(s), paresthesias or weakness Psychiatric Psychiatric: Denies anxiety or suicidal thoughts EXAM Physical Exam Const Vital Signs: 09/08/23 20:53 09/08/23 20:48 09/08/23 21:27 Temperature 97.5 F L 975 F H Temperature Source Temporal Temporal Pulse Rate 108 H 107 H Respiratory Rate 28 H 28 H Respiratory Effort Respiratory Depth Respiratory Pattern Blood Pressure 158/101 H 158/101 H Blood Pressure Mean 120 120 Pulse Ox 88 90 90 Oxygen Delivery Method Room Air Nasal Cannula Nasal Cannula Oxygen Flow Rate (L/min) 2 2 09/08/23 21:27 09/08/23 21:35 09/08/23 21:48 Temperature Temperature Source Pulse Rate 106 H 98 Respiratory Rate 22 H 25 H Respiratory Effort Short of Breath Respiratory Depth Shallow Respiratory Pattern Tachypnea Tachypnea Blood Pressure 150/79 H Blood Pressure Mean 102 Pulse Ox 90 Oxygen Delivery Method Nasal Cannula Oxygen Flow Rate (L/min) 2 09/08/23 22:00 09/08/23 23:00 09/08/23 23:03 Temperature Temperature Source Pulse Rate 102 H 95 Respiratory Rate 35 H 19 H Respiratory Effort Respiratory Depth Respiratory Pattern Blood Pressure 150/79 H 148/108 H Blood Pressure Mean 102 121 Pulse Ox 91 87 91 Oxygen Delivery Method Nasal Cannula Room Air Nasal Cannula Oxygen Flow Rate (L/min) 2 2 Positive well nourished, well developed and obese Constitutional Narrative: Well-appearing, no distress General Appearance ED: well developed and NAD Nutritional Appearance: obese HEENT Reports moist mucous membranes normocephalic and atraumatic Eyes PERRL and EOMs intact bilaterally Neck full ROM, no lymphadenopathy, supple and no JVD Resp normal respiratory effort Auscultation: wheezes expiratory wheezes and throughout; Negative for rales or rhonchi Cardio regular rate, regular rhythm and no murmurs Rate: tachycardic GI non-tender and non-distended Auscultation: normoactive bowel sounds Palpation: soft Back/Spine no CVA tenderness General Back: other FROM Extremity normal to inspection and no calf tenderness General Extremety ED: Yes edema; Negative for pulses abnormal or tenderness General Extremity: edema bilateral lower extremity Details: moderate (With changes of chronic stasis dermatitis, no tenderness or asymmetry); Negative for pulses abnormal Neuro oriented x3, CN's II-XII intact bilaterally and no sensory deficits noted Sensorium / Orientation: awake and alert Motor Exam: strength 5/5 throughout Skin no rashes or lesions noted and no wounds MDM MDM MDM Narrative Medical decision making narrative: Patient was given several nebulizer treatments as we worked her up, two-view chest x-ray on my interpretation shows no pneumonia, her cardiac workup is negative showing no signs of subendocardial ischemia due to hypoxemia. She had a COVID/flu test that was negative last week so I do not think we need to repeat that. It does appear that she was on Zithromax and prednisone both. The Zithromax is still on board since it was started about 7 days ago, so no more acute antibiotics indicated today since she does not have pneumonia, but I did give Solu-Medrol 125. On reevaluation she is feeling a little better but not a lot, we took her oxygen off as she was 80% on room air prior to evaluation, she desatted down to 87% on room air at rest after treatment so we put her back on a 2 L nasal cannula and plan is for admission. History & Record Review Additional record(s) reviewed:: Prior ED visit Lab Data Attestation: I reviewed the patient's lab results. Labs: Laboratory Results - last 24 hr 09/08/23 21:38 WBC 6.7 RBC 4.45 Hgb 13.3 Hct 42.4 MCV 95.3 MCH 29.9 MCHC 31.4 L RDW Std Deviation 46.8 H RDW Coeff of [place] 13.3 Plt Count 189 MPV 10.1 Immature Gran % (Auto) 0.100 Neut % (Auto) 45.3 L Lymph % (Auto) 36.9 [place] % (Auto) 7.0 Eos % (Auto) 10.3 H Baso % (Auto) 0.4 Absolute Neuts (auto) 3.0 Absolute Lymphs (auto) 2.47 Nucleated RBC % 0 Sodium 143 Potassium 4.0 Chloride 105 Carbon Dioxide 35.0 H Anion Gap 3 L BUN 12 Creatinine 0.54 L Est GFR (MDRD) Af Amer 155 Est GFR (MDRD) Non-Af 128 BUN/Creatinine Ratio 22.1 H Glucose 119 H Calcium 8.6 Troponin I High Sens < 3 L Radiography Diagnostic Testing: Clinical Impression(s) from Imaging Studies Chest X-Ray 09/08/23 22:20 IMPRESSION: Normal x-ray examination of the chest. Electronically Signed: Ezra Chairez MD at 23:03 EDT , Rhythm Strip Rhythm Strip: Sinus Rhythm Rate: 95 Ectopy: None EKG Initial EKG: Attestation: I personally reviewed and interpreted this EKG as follows: Interpretation: Sinus Rhythm and No Acute Injury Pattern Management Discussion w/another healthcare provider: Hospitalist Discharge Plan Triage Chief Complaint: Shortness of Breath ED Provider: Сергей Lowe Dx/Rx/DC Orders Clinical Impression: COPD with acute exacerbation, Hypoxemia Prescriptions: No Action albuterol sulfate 90 mcg/actuation aero powdr breath act w/sensor 2 inh inhalation Q6H Qty: 1 1RF albuterol sulfate 90 mcg/actuation HFA aerosol inhaler 2 puff INHALATION Q4H PRN (Reason: sob wheezying) Patient Comments: INHALE 2 PUFFS BY MOUTH EVERY 4 HOURS NEEDED FOR SHORTNESS OF BREATH OR WHEEZING FOR UP TO 30 DAYS buprenorphine-naloxone 8-2 mg film 1 film sublingual Q24H Patient Comments: PLACE 1 STRIP UNDER THE TONGUE THREE TIMES DAILY FOR 28 DAYS lisinopril 40 mg tablet 40 mg PO DAILY Patient Comments: TAKE 1 TABLET BY MOUTH ONCE DAILY prednisone 20 mg tablet 20 mg PO BID Qty: 6 0RF prednisone 10 mg tablet 10 mg PO DAILY Qty: 48 0RF Rx Instructions: 60mg po daily for 3 days, 40mg po daily for 3 days, 20mg po daily for 3 days, 10mg po daily for 3 days azithromycin [Zithromax] 250 mg tablet 250 mg PO DAILY 4 Days Qty: 4 0RF Rx Instructions: start on day 2 of therapy Primary Care Provider: [facility] Doctor,Out of Referrals: [facility] Doctor,Out of [Primary Care Provider] - Disposition Disposition: [facility]
[2023-09-08] MEDS: MethylPREDNISolone 125 MG/2 ML Vial IV (21:35)
[2023-09-08] MEDS: Ipratropium/Albuterol Sulfate 3 ML AMPUL.NEB INHALATION (21:35)
[2023-09-08] MEDS: Albuterol 2.5 MG/3 ML VIAL.NEB. INHALATION (21:35)
[2023-09-08 21:45] LABS: Absolute Lymphocyte Count 2.47 X10^3/uL (0.83-4.51); Basophil# 0.03 X10^3/uL; Basophil% 0.4 % (0-1); Eosinophil# 0.69 X10^3/uL; Eosinophils% 10.3 % (0-5); Hematocrit 42.4 % (37-47); Hemoglobin 13.3 g/dL (12.0-15.0); Lymphocyte # 2.47 X10^3/ul (0.83-4.51); Lymphocyte % 36.9 % (19-41); Mean Corp Hgb Conc 31.4 g/dL (32-36); Mean Corpuscular Hgb 29.9 pg (27.0-32.0); Mean Corpuscular Volume 95.3 fL (81-99); Mean Platelet Vol. 10.1 fl (6.2-12.0); Monocyte# 0.47 X10^3/uL; NRBC Flagged by Analyzer 0 % (0-5); Neutrophil # 3.03 X10^3/uL (2.7-7.7); Neutrophil % 45.3 % (47-70); Platelet Count 189 K/mm3 (150-450); RBC Distribution Width CV 13.3 % (11.6-14.6); RBC Distribution Width SD 46.8 fl (35.1-43.9); Red Blood Count 4.45 M/mm3 (4.2-5.4); White Blood Count 6.7 K/mm3 (4.4-11.0)
--- NOTE | 2023-09-08 21:58 | CPS ---
x1 Albuterol given to pt. in ER as well
[2023-09-08 22:12] LABS: Anion Gap 3 (5-15); BUN 12 mg/dL (7-18); BUN/Creat Ratio 22.1 RATIO (10-20); Calcium,Total 8.6 mg/dL (8.5-10.1); Chloride 105 mmol/L (98-107); Creatinine, Serum 0.54 mg/dL (0.55-1.02); EST Glomerular Filtration Rate 128 mL/min (>60); Est Glom Filt Rate - Afr Amer 155 mL/min (>60); Glucose 119 mg/dL (74-106); Sodium Level 143 mmol/L (136-145); Troponin-I HS < 3 pg/mL (3.0-54.0)
--- NOTE | 2023-09-08 22:20 | RAD_ITS ---
STUDY: X-RAY CHEST REASON FOR EXAM: Female, 48 years old. cough sob TECHNIQUE: PA and lateral views of the chest. COMPARISON: 08/31/2023 FINDINGS: The lungs are clear and expanded. There is no demonstrated pleural abnormality. Normal size heart. Normal mediastinum and sukhwinder. Normal visualized pulmonary arteries. Normal visualized aortic arch and descending thoracic aorta. Normal visualized thoracic spine. Normal visualized ribs, clavicles, and shoulders. There is no demonstrated abnormality of the visualized soft tissue structures of the upper abdomen. RAD/Chest PA and Lateral IMPRESSION: Normal x-ray examination of the chest. Electronically Signed: Ezra Chairez MD at 23:03 EDT ,
--- NOTE | 2023-09-08 23:27 | PCM.HP.STD ---
[facility] - General General Date of Admission: 09/09/23 Date of Service: 09/08/23 Chief Complaint: SOB and Wheezing. [facility] Narrative URSULA PINA, is a 48 F with a past medical history of essential hypertension, morbid obesity; with BMI of 64.2 this admission, history of PE, chronic LE edema, previous history of Fentanyl Abuse; on Buprenex, history of cholecystectomy, history of Left hip ORIF (2012), depression, RLS, history of tobacco abuse; with subsequent COPD and recent evaluation here in this ER for AE COPD three days ago; with prescription given for Z-pack, Prednisone and prn Albuterol inhaler who re-presents to [facility] ER complaining of SOB and wheezing. Ms. Pina reports her symptoms began approximately one week prior to admission with the gradual-onset of ARRIAGA that progressed to SOB at rest. She also admits to a cough productive of greenish sputum and a worsening sensation of tightness in her lungs that is typical of her previous AE COPD. She states she did take her Prednisone taper and Z-pack as prescribed but they were not able to improve her condition. She denies associated fever, chills, nausea, vomiting, diarrhea, constipation, chest pain, palpitations or worsening of her LE edema. In the ER she was diagnosed with AE COPD complicated by clinical evidence of respiratory insufficiency and laboratory evidence of hypophosphatemia of 1.7 mg/dL present on admission and she was then admitted to the general medical floor for ongoing care for a stay that is expected to be greater than 48 hours. [facility] Medical History COPD (chronic obstructive pulmonary disease) Fentanyl use disorder, mild, in sustained remission, abuse Former smoker HTN (hypertension) Pulmonary emboli Home Medications albuterol sulfate 90 mcg/actuation aerosol inhaler 2 puff inhalation Q4H PRN sob wheezying 05/11/23 [History Last Taken 05/11/23] buprenorphine 8 mg-naloxone 2 mg sublingual film 1 film sublingual Q24H drug addiction 05/11/23 [History Last Taken Unknown] lisinopril 40 mg tablet 40 mg PO DAILY bp 05/11/23 [History Last Taken Unknown] bupropion HCl 150 mg 24 hr tablet, extended release 150 mg PO DAILY depression 09/08/23 [History Last Taken Unknown] bupropion HCl 300 mg 24 hr tablet, extended release 300 mg PO DAILY depression 09/08/23 [History Last Taken Unknown] gabapentin 800 mg tablet 800 mg PO 4X/DAY pain 09/08/23 [History Last Taken Unknown] ropinirole 1 mg tablet 1 mg PO QHS restless legs 09/08/23 [History Last Taken Unknown] tiotropium bromide 1.25 mcg/actuation mist for inhalation (Spiriva Respimat) 1 puff inhalation QPM ask pcp 09/08/23 [History Last Taken Unknown] promethazine 25 mg tablet 25 mg PO Q8H PRN PRN nausea 09/09/23 [History Last Taken Unknown] Allergy/AdvReac Type Severity Reaction Status Date / Time No Known Allergies Allergy Verified 09/08/23 20:52 Surgical History History of cholecystectomy History of open reduction and internal fixation (ORIF) procedure Social History Smoking Status: Former smoker Vital Signs Vital Signs Vital Signs: 09/08/23 20:53 09/08/23 20:48 09/08/23 21:27 Temperature 97.5 F L 975 F H Temperature Source Temporal Temporal Pulse Rate 108 H 107 H Respiratory Rate 28 H 28 H Respiratory Effort Respiratory Depth Respiratory Pattern Blood Pressure 158/101 H 158/101 H Blood Pressure Mean 120 120 Pulse Ox 88 90 90 Oxygen Delivery Method Room Air Nasal Cannula Nasal Cannula Oxygen Flow Rate (L/min) 2 2 09/08/23 21:27 09/08/23 21:35 09/08/23 21:48 Temperature Temperature Source Pulse Rate 106 H 98 Respiratory Rate 22 H 25 H Respiratory Effort Short of Breath Respiratory Depth Shallow Respiratory Pattern Tachypnea Tachypnea Blood Pressure 150/79 H Blood Pressure Mean 102 Pulse Ox 90 Oxygen Delivery Method Nasal Cannula Oxygen Flow Rate (L/min) 2 09/08/23 22:00 09/08/23 23:00 09/08/23 23:03 Temperature Temperature Source Pulse Rate 102 H 95 Respiratory Rate 35 H 19 H Respiratory Effort Respiratory Depth Respiratory Pattern Blood Pressure 150/79 H 148/108 H Blood Pressure Mean 102 121 Pulse Ox 91 87 91 Oxygen Delivery Method Nasal Cannula Room Air Nasal Cannula Oxygen Flow Rate (L/min) 2 2 Weight Weight: 460 lb 5.203 oz Body Mass Index (BMI) 64.2 Physical Exam Const alert and oriented x3 Constitutional Narrative: Mild distress noted with patient morbidly obese with suspected Pickwickian syndrome. General Appearance: cooperative HEENT normocephalic, head/scalp atraumatic, hearing grossly normal bilaterally and moist oral mucous membranes Eyes PERRL and EOMs intact bilaterally Neck no lymphadenopathy and supple Resp Resp Narrative: Diminished breath sounds throughout with scattered wheezes. Auscultation: wheezes Cardio regular rate and regular rhythm GI normal to inspection, nondistended, normoactive bowel sounds, soft to palpation, non-tender and non-distended GI Narrative: Morbidly obese. Extremity Extremity Narrative: 2-3+ bilateral LE pitting edema. Skin Skin Narrative: Patient has no evidence of rash. Neuro oriented x3, CN's II-XII intact bilaterally, moves all extremities and no focal motor deficits Sensorium / Orientation: awake, alert, oriented to person, oriented to place and oriented to time Speech: speech normal Psych affect normal Results Medical Records Data Attestation: I reviewed the patient's medical records Lab / Micro Data Attestation: I reviewed the patient's lab results. 09/09/23 03:45 09/09/23 03:45 Labs: Laboratory Results - last 24 hr 09/08/23 21:38: WBC 6.7, RBC 4.45, Hgb 13.3, Hct 42.4, MCV 95.3, MCH 29.9, MCHC 31.4 L, RDW Std Deviation 46.8 H, RDW Coeff of [place] 13.3, Plt Count 189, MPV 10.1, Immature Gran % (Auto) 0.100, Neut % (Auto) 45.3 L, Lymph % (Auto) 36.9, [place] % (Auto) 7.0, Eos % (Auto) 10.3 H, Baso % (Auto) 0.4, Absolute Neuts (auto) 3.0, Absolute Lymphs (auto) 2.47, Nucleated RBC % 0, Sodium 143, Potassium 4.0, Chloride 105, Carbon Dioxide 35.0 H, Anion Gap 3 L, BUN 12, Creatinine 0.54 L, Est GFR (MDRD) Af Amer 155, Est GFR (MDRD) Non-Af 128, BUN/Creatinine Ratio 22.1 H, Glucose 119 H, Calcium 8.6, Troponin I High Sens < 3 L Rhythm Strip Rhythm Strip: Sinus Rhythm Rate: 95 Ectopy: None Imaging Radiology Impression Chest X-Ray 09/08/23 22:20 IMPRESSION: Normal x-ray examination of the chest. Electronically Signed: Ezra Chairez MD at 23:03 EDT , Assessment & Plan Assessment/Plan (1) COPD with acute exacerbation: (2) Morbid obesity with BMI of 60.0-69.9, adult: (3) Respiratory insufficiency: (4) Hypophosphatemia: PLAN: Plan 1. AE COPD - Admit to general medical floor. Continue broad-spectrum antibiotics plus add scheduled and prn nebulizers. Give Mucinex 1,200 mg PO BID. 2. Morbid Obesity; with BMI of 64.2 present on admission with suspected Pickwickian syndrome complicating #1 - Weight loss will be recommended. Check TSH. 3. Respiratory insufficiency arising from #1 & #2 - Wean supplemental oxygen as tolerated. 4. Hypophosphatemia of 1.7 mg/dL present on admission compounding #1 - #3 - Give supplemental phosphate and recheck level in a.m. to ensure improvement. 5. Essential hypertension - Continue home regimen plus give IV Hydralazine prn for systolic blood pressure > 160 mmHg. 6. History of PE with chronic LE edema - Noted. Check d-dimer. 7. Previous history of Fentanyl Abuse; on Buprenex - Resume Buprenex as previous. 8. History of cholecystectomy - Noted. 9. History of Left hip ORIF (2012) - Noted. 10. Depression - Continue home medications. 11. RLS - Resume Requip as previous. 12. DVT prophylaxis - Lovenox 40 mg sq BID. Total time: Approximately 75 minutes. Charges/Coding Visit Charges Inpatient E&M: 49534 Init Hosp L3
[2023-09-09] VITALS (16 sets, daily range): BP systolic 148–192; BP diastolic 84–123; PULSE 81–100; RESP 15–22; TEMP 36.1–37.2; O2SAT 91–98; BMI 63.2; BMI 61.9
[2023-09-09 01:24] LABS: D-Dimer Quantitative (DVT/PE) 0.33 FEU/ug/m (0.27-0.49)
[2023-09-09] MEDS: Doxycycline 100 MG in Dextrose 5%-Water (250mL Bag) 250 ML 250 MG IV ×3 (01:27→21:36)
[2023-09-09] MEDS: 0.9% Normal Saline (1000mL) 1,000 ML 70 ML IV (01:27)
[2023-09-09] MEDS: Enoxaparin 40 MG/0.4 ML Syringe SC ×3 (01:29→21:35)
[2023-09-09] MEDS: Famotidine 20 MG Tablet PO ×3 (01:31→21:36)
[2023-09-09] MEDS: Gabapentin 800 MG Tablet PO ×5 (01:32→21:35)
[2023-09-09 04:00] LABS: Blood Gas Specimen Type VEN; O2 Delivery Device Not entered; SITE Not entered; VBG BASE EXCESS 6 mmol/L (-1.0-3.5); VBG Bicarbonate 31 mmol/L (22-26); VBG PO2 112 mmHg (25-40); VBG SO2 98 % (50-70); VBG TCO2 33 mmol/L (23-33); VBG pCO2 52.6 mmHg (41-51); VBG pH 7.38 (7.32-7.42)
[2023-09-09] MEDS: Lisinopril 40 MG Tablet PO (04:10)
[2023-09-09 04:27] LABS: Absolute Lymphocyte Count 0.47 X10^3/uL (0.83-4.51); Absolute Neutrophil Count 4.5 X10^3/uL (2.0-7.7); Basophil# 0.01 X10^3/uL; Basophil% 0.2 % (0-1); Eosinophil# 0.03 X10^3/uL; Eosinophils% 0.6 % (0-5); Hematocrit 43.8 % (37-47); Hemoglobin 13.4 g/dL (12.0-15.0); Lymphocyte # 0.47 X10^3/ul (0.83-4.51); Lymphocyte % 9.3 % (19-41); Mean Corp Hgb Conc 30.6 g/dL (32-36); Mean Corpuscular Hgb 29.1 pg (27.0-32.0); Mean Corpuscular Volume 95.2 fL (81-99); Mean Platelet Vol. 10.5 fl (6.2-12.0); Monocyte# 0.05 X10^3/uL; NRBC Flagged by Analyzer 0 % (0-5); Neutrophil # 4.45 X10^3/uL (2.7-7.7); Neutrophil % 88.5 % (47-70); POSITIVE DIFFERENTIAL YES; Platelet Count 183 K/mm3 (150-450); RBC Distribution Width CV 13.3 % (11.6-14.6)
[2023-09-09 05:02] LABS: ALB/GLOB Ratio 0.9 RATIO (0.9-2.4); AST(SGOT) 26 U/L (15-37); Alanine Aminotransfer ALT/SGPT 27 U/L (13-56); Albumin, Serum 3.2 g/dL (3.2-5.0); Alkaline Phosphatase 129 U/L (45-117); Anion Gap 5 (5-15); BUN 12 mg/dL (7-18); BUN/Creat Ratio 19.8 RATIO (10-20); Calcium,Total 8.7 mg/dL (8.5-10.1); Chloride 105 mmol/L (98-107); EST Glomerular Filtration Rate 113 mL/min (>60); Est Glom Filt Rate - Afr Amer 136 mL/min (>60); Globulin 3.7 g/dL (2.2-4.2); Glucose 206 mg/dL (74-106); Magnesium 2.1 mg/dL (1.6-2.6); Phosphorus 1.7 mg/dL (2.5-4.9); Potassium 4.4 mmol/L (3.5-5.1); Protein, Total 6.9 g/dL (6.4-8.2); Sodium Level 139 mmol/L (136-145)
[2023-09-09] MEDS: hydrALAZINE 20 MG/ML Vial 10 MG IV ×2 (06:34→13:23)
[2023-09-09] MEDS: Potassium Phosphate 40 MM in 0.9% Normal Saline (500mL Bag) 500 ML 62.5 MM IV (07:25)
[2023-09-09] MEDS: Ipratropium 0.5 MG/2.5 ML SOLUTION INHALATION ×3 (07:30→19:36)
[2023-09-09] MEDS: Ascorbic Acid 500 MG Tablet 1000 MG PO ×2 (08:43→18:48)
[2023-09-09] MEDS: Zinc Sulfate 50 mg zinc (220 mg) ORAL capsule PO (10:05)
[2023-09-09] MEDS: buPROPion (XL) 150 MG TABLET.XL PO (10:05)
[2023-09-09] MEDS: Cholecalciferol (Vit D3) 125 MCG CAPSULE (5,000 UNITS) PO (10:05)
[2023-09-09] MEDS: MethylPREDNISolone 125 MG/2 ML Vial 60 MG IV ×2 (10:06→21:28)
[2023-09-09] MEDS: Lactobacillis Acidophilus 2 CAP PO ×2 (10:06→21:35)
[2023-09-09] MEDS: 0.9% Saline Lock 10 ML Syringe IV (10:06)
[2023-09-09] MEDS: buPROPion (XL) 300 MG TABLET.XL PO (10:14)
--- NOTE | 2023-09-09 13:12 | CASEMGMT ---
MEGAN ORTIZ Assessment Face to Face with patient for initial transition planning/care coordination assessment. MEGAN ORTIZ introduced self and role at [facility], pt voices understanding. Pt is A&Ox4 and is resting comfortably in bed and is calm. Care providers, pharmacy, and demographics verified. Admitting dx: AE COPD PCP: Pt PCP is located in [facility] Specialists: Denies Preferred Pharmacy: [facility] Insurance: LUCIL[employer] Prescription Benefit: Yes LNOK: Amber Jc (friend) Living Arrangements: Pt lives with a roommate in a [facility] ([facility]) with 20 steps to manage ADLs/IADLs: Ind Transportation: Self, friends DME: [employer]. Pt may qualify for home o2. A verbal list of local in-network DME companies provided to the pt and the pt chose [facility] HHC/SNF: Denies history or needs Plan: 6-Click is 22. PT eval pending. Pt denies HHC, OP therapy, or SNF needs at this time. Pt states that she wishes to return to her current home once she is medically ready. CM to follow PT and also for oxygen needs in regard to safe DC from [facility]. Sal Verde RN, CM
[2023-09-09] MEDS: Acetaminophen 325 MG Tablet 650 MG PO ×2 (13:25→19:22)
--- NOTE | 2023-09-09 13:37 | PN_ITS ---
Subjective Subjective Patient seen and examined. She feels like her breathing is improving. She denies any coughing or chest pain, palpitations, wheezing, nausea vomiting or any other symptoms. Review of systems otherwise negative. She is on 2 L of oxygen. Objective Data Objective Data Vital Signs: Vital Signs Temp Pulse Resp BP Pulse Ox O2 Del Method O2 Flow Rate 97.0 F L 96 22 H 192/123 H 96 Nasal Cannula 2 09/09/23 13:15 09/09/23 13:23 09/09/23 13:15 09/09/23 13:15 09/09/23 13:15 09/09/23 13:15 09/09/23 13:15 Oxygen Flow Rate (L/min) 2 Oxygen Delivery Method Nasal Cannula Weight: 442 lb 14.539 oz Body Mass Index (BMI) 61.9 Intake & Output: Intake and Output for Last 24 Hours 09/07/23 09/08/23 09/09/23 23:59 23:59 23:59 Intake Total 1193.96 / 1193.96 Balance 1193.96 / 1193.96 Lab / Micro Data 09/09/23 03:45 09/09/23 03:45 Labs: Laboratory Results - last 24 hr 09/08/23 21:38: WBC 6.7, RBC 4.45, Hgb 13.3, Hct 42.4, MCV 95.3, MCH 29.9, MCHC 31.4 L, RDW Std Deviation 46.8 H, RDW Coeff of [place] 13.3, Plt Count 189, MPV 10.1, Immature Gran % (Auto) 0.100, Neut % (Auto) 45.3 L, Lymph % (Auto) 36.9, [place] % (Auto) 7.0, Eos % (Auto) 10.3 H, Baso % (Auto) 0.4, Absolute Neuts (auto) 3.0, Absolute Lymphs (auto) 2.47, Nucleated RBC % 0, D-Dimer Quant (PE/DVT) 0.33, Sodium 143, Potassium 4.0, Chloride 105, Carbon Dioxide 35.0 H, Anion Gap 3 L, BUN 12, Creatinine 0.54 L, Est GFR (MDRD) Af Amer 155, Est GFR (MDRD) Non- Af 128, BUN/Creatinine Ratio 22.1 H, Glucose 119 H, Calcium 8.6, Troponin I High Sens < 3 L 09/09/23 03:45: WBC 5.0, RBC 4.60, Hgb 13.4, Hct 43.8, MCV 95.2, MCH 29.1, MCHC 30.6 L, RDW Std Deviation 47.0 H, RDW Coeff of [place] 13.3, Plt Count 183, MPV 10.5, Immature Gran % (Auto) 0.400, Neut % (Auto) 88.5 H, Lymph % (Auto) 9.3 L, [place] % (Auto) 1.0, Eos % (Auto) 0.6, Baso % (Auto) 0.2, Absolute Neuts (auto) 4.5, Absolute Lymphs (auto) 0.47 L, Nucleated RBC % 0, Sodium 139, Potassium 4.4, Chloride 105, Carbon Dioxide 29.0, Anion Gap 5, BUN 12, Creatinine 0.60, Estim Creat Clear Calc 228.30, Est GFR (MDRD) Af Amer 136, Est GFR (MDRD) Non-Af 113, BUN/Creatinine Ratio 19.8, Glucose 206 H, Calcium 8.7, Phosphorus 1.7 L, Magnesium 2.1, Total Bilirubin 0.30, AST 26, ALT 27, Alkaline Phosphatase 129 H, Total Protein 6.9, Albumin 3.2, Globulin 3.7, Albumin/Globulin Ratio 0.9, TSH 0.50 ABG Data ABG results: ABG 09/09/23 03:56 Specimen Type ALBA Sample Site Not entered VBG pH 7.38 VBG pO2 112 H VBG HCO3 31 H VBG Total CO2 33 VBG O2 Sat (Calc) 98 H VBG Base Excess 6 H POC Mix VBG pCO2 Pt Tmp 52.6 H O2 Delivery Device Not entered Radiography Diagnostic Testing: Radiology Impression Chest X-Ray 09/08/23 22:20 IMPRESSION: Normal x-ray examination of the chest. Electronically Signed: Ezra Chairez MD at 23:03 EDT , Rhythm Strip Rhythm Strip: Sinus Rhythm Rate: 95 Ectopy: None Physical Exam Const alert, oriented x3 and no apparent distress Constitutional Narrative: super morbid obesity HEENT normocephalic, moist oral mucous membranes and oropharynx normal Eyes PERRL and EOMs intact bilaterally Neck supple and no JVD Lymph Lymphatic: no lymphadenopathy noted and no lymphedema noted Resp Resp Narrative: mildly diminished breath sounds bibasally, no wheezes or crackles. On 2L of oxygen by nasal canula. Cardio regular rate, regular rhythm, S1 normal heart sound, S2 normal heart sound and no murmurs GI normal to inspection, nondistended, normoactive bowel sounds, soft to palpation, non-tender and non-distended Extremity normal capillary refill, no clubbing, cyanosis or edema and no calf tenderness General Extremity: no tenderness to palpation of joints or extremities Skin General Skin Exam: no breakdown Neuro CN's II-XII intact bilaterally, no focal motor deficits, no sensory deficits noted and deep tendon reflexes 2+ bilaterally Psych thought process normal, cooperative and affect normal Appearance: appropriate Assessment & Plan Assessment/Plan (1) COPD with acute exacerbation: PLAN: Plan #Acute COPD exacerbation * Patient states she is feeling better. On 2 L of oxygen. Breathing treatments bronchodilators. Titrate oxygen to maintain saturation above 90%. * On IV Solu-Medrol. On IV doxycycline. #Hypertension: * Blood pressure is markedly elevated with systolic in the 190s. * Has been elevated since she was admitted. * She does not have a history of high blood pressure. * In light of the persistently elevated blood pressure we will start on p.o. amlodipine 10 mg daily and p.o. metoprolol 25 mg twice daily. * IV hydralazine as needed * #Depression: On bupropion. #Restless leg syndrome: On pramipexole #Super morbid obesity: BMI is 61.8. Complicates acute care, expected recovery and prognosis. DVT prophylaxis: Lovenox 40 mg twice daily. Charges/Coding Visit Charges Inpatient E&M: 61063 Subs Hosp L2
[2023-09-09] MEDS: amLODIPine 10 MG Tablet PO (14:48)
[2023-09-09] MEDS: Metoprolol Tartrate 25 MG Tablet PO ×2 (14:48→21:36)
[2023-09-09] MEDS: Pramipexole Di-HCl 0.5 MG Tablet PO (21:35)
[2023-09-09] MEDS: MELATONIN 3 MG TABLET PO (21:35)
[2023-09-10] VITALS (11 sets, daily range): BP systolic 146–161; BP diastolic 88–95; PULSE 66–103; RESP 16–20; TEMP 36.4–37.6; O2SAT 91–97; BMI 62.1
[2023-09-10] MEDS: Ipratropium 0.5 MG/2.5 ML SOLUTION INHALATION ×3 (06:59→19:49)
[2023-09-10 07:41] LABS: Absolute Lymphocyte Count 0.82 X10^3/uL (0.83-4.51); Absolute Neutrophil Count 8.1 X10^3/uL (2.0-7.7); Basophil# 0.01 X10^3/uL; Basophil% 0.1 % (0-1); Hematocrit 44.5 % (37-47); Hemoglobin 13.4 g/dL (12.0-15.0); Lymphocyte # 0.82 X10^3/ul (0.83-4.51); Lymphocyte % 8.9 % (19-41); Mean Corp Hgb Conc 30.1 g/dL (32-36); Mean Corpuscular Hgb 29.1 pg (27.0-32.0); Mean Corpuscular Volume 96.5 fL (81-99); Mean Platelet Vol. 10.3 fl (6.2-12.0); Monocyte# 0.21 X10^3/uL; Monocyte% 2.3 % (0-10); NRBC Flagged by Analyzer 0 % (0-5); Neutrophil # 8.11 X10^3/uL (2.7-7.7); Neutrophil % 88.2 % (47-70); Platelet Count 212 K/mm3 (150-450); RBC Distribution Width CV 13.6 % (11.6-14.6); RBC Distribution Width SD 48.6 fl (35.1-43.9); Red Blood Count 4.61 M/mm3 (4.2-5.4); White Blood Count 9.2 K/mm3 (4.4-11.0)
[2023-09-10] MEDS: Ascorbic Acid 500 MG Tablet 1000 MG PO ×2 (07:46→17:48)
[2023-09-10 09:25] LABS: Anion Gap 2 (5-15); BUN 16 mg/dL (7-18); BUN/Creat Ratio 27.6 RATIO (10-20); Calcium,Total 8.8 mg/dL (8.5-10.1); Chloride 105 mmol/L (98-107); Creatinine, Serum 0.58 mg/dL (0.55-1.02); EST Glomerular Filtration Rate 118 mL/min (>60); Est Glom Filt Rate - Afr Amer 143 mL/min (>60); Estimated Creatinine Clearance 232.99 ml/min; Glucose 179 mg/dL (74-106); Potassium 4.4 mmol/L (3.5-5.1); Sodium Level 139 mmol/L (136-145)
[2023-09-10] MEDS: Lactobacillis Acidophilus 2 CAP PO ×2 (09:39→19:41)
[2023-09-10] MEDS: Famotidine 20 MG Tablet PO ×2 (09:39→19:42)
[2023-09-10] MEDS: Lisinopril 40 MG Tablet PO (09:39)
[2023-09-10] MEDS: Enoxaparin 40 MG/0.4 ML Syringe SC ×2 (09:39→19:42)
[2023-09-10] MEDS: Metoprolol Tartrate 25 MG Tablet PO ×2 (09:39→19:41)
[2023-09-10] MEDS: amLODIPine 10 MG Tablet PO (09:39)
[2023-09-10] MEDS: Zinc Sulfate 50 mg zinc (220 mg) ORAL capsule PO (09:39)
[2023-09-10] MEDS: 0.9% Saline Lock 10 ML Syringe IV ×2 (09:40→15:14)
[2023-09-10] MEDS: Doxycycline 100 MG in Dextrose 5%-Water (250mL Bag) 250 ML 250 MG IV ×2 (09:40→21:45)
[2023-09-10] MEDS: buPROPion (XL) 300 MG TABLET.XL PO (09:40)
[2023-09-10] MEDS: Cholecalciferol (Vit D3) 125 MCG CAPSULE (5,000 UNITS) PO (09:40)
[2023-09-10] MEDS: buPROPion (XL) 150 MG TABLET.XL PO (09:40)
[2023-09-10] MEDS: MethylPREDNISolone 125 MG/2 ML Vial 60 MG IV ×2 (09:40→21:46)
[2023-09-10] MEDS: Gabapentin 800 MG Tablet PO ×4 (09:48→19:44)
--- NOTE | 2023-09-10 09:54 | NURSING ---
ambulated half hallway. significant ARRIAGA with ambulation. spo2 dropped to 91% RA with HR 110 with ambulation. pt requesting o2 upon return to room.
--- NOTE | 2023-09-10 10:05 | CASEMGMT ---
Pt does not qualify for home oxygen.
[2023-09-10] MEDS: Albuterol 2.5 MG/3 ML VIAL.NEB. INHALATION (10:21)
--- NOTE | 2023-09-10 11:19 | PN_ITS ---
Subjective Subjective Patient seen and examined. She says she felt well today and was agreeable to discharge. She denied any coughing, chest pain or palpitations, dizziness, nausea or vomiting. Patient had walking pulse ox which showed that she did not require oxygen but she became tachypneic with increased work of breathing. Plan is for discharge therefore consult to optimize patient further. Review of systems otherwise negative. Objective Data Objective Data Vital Signs: Vital Signs Temp Pulse Resp BP Pulse Ox O2 Del Method O2 Flow Rate 97.6 F L 79 20 H 146/89 H 94 Nasal Cannula 2 09/10/23 07:40 09/10/23 10:22 09/10/23 10:22 09/10/23 07:40 09/10/23 09:53 09/10/23 07:43 09/10/23 07:43 Oxygen Flow Rate (L/min) 2 Oxygen Delivery Method Nasal Cannula Weight: 444 lb 3.703 oz Body Mass Index (BMI) 62.1 Intake & Output: Intake and Output for Last 24 Hours 09/08/23 09/09/23 09/10/23 23:59 23:59 23:59 Intake Total 2734.8333 / 2734.8333 260 / 260 Balance 2734.8333 / 2734.8333 260 / 260 Lab / Micro Data 09/10/23 07:20 09/10/23 08:53 Labs: Laboratory Results - last 24 hr 09/10/23 07:20: WBC 9.2, RBC 4.61, Hgb 13.4, Hct 44.5, MCV 96.5, MCH 29.1, MCHC 30.1 L, RDW Std Deviation 48.6 H, RDW Coeff of [place] 13.6, Plt Count 212, MPV 10.3, Immature Gran % (Auto) 0.500, Neut % (Auto) 88.2 H, Lymph % (Auto) 8.9 L, [place] % (Auto) 2.3, Eos % (Auto) 0.0, Baso % (Auto) 0.1, Absolute Neuts (auto) 8.1 H, Absolute Lymphs (auto) 0.82 L, Nucleated RBC % 0, Sodium Cancelled, Potassium Cancelled, Chloride Cancelled, Carbon Dioxide Cancelled, Anion Gap Cancelled, BUN Cancelled, Creatinine Cancelled, Estim Creat Clear Calc Cancelled, Est GFR (MDRD) Af Amer Cancelled, Est GFR (MDRD) Non-Af Cancelled, BUN/Creatinine Ratio Cancelled, Glucose Cancelled, Calcium Cancelled 09/10/23 08:53: Sodium 139, Potassium 4.4, Chloride 105, Carbon Dioxide 32.0, A nion Gap 2 L, BUN 16, Creatinine 0.58, Estim Creat Clear Calc 232.99, Est GFR (MDRD) Af Amer 143, Est GFR (MDRD) Non-Af 118, BUN/Creatinine Ratio 27.6 H, G lucose 179 H, Calcium 8.8 Rhythm Strip Rhythm Strip: Sinus Rhythm Rate: 95 Ectopy: None Physical Exam Const alert, oriented x3 and no apparent distress Constitutional Narrative: super morbid obesity General Appearance: cooperative HEENT normocephalic, head/scalp atraumatic, hearing grossly normal bilaterally, moist oral mucous membranes and oropharynx normal Eyes PERRL and EOMs intact bilaterally Neck no lymphadenopathy, supple and no JVD Lymph Lymphatic: no lymphadenopathy noted and no lymphedema noted Resp Resp Narrative: mildly diminished breath sounds bibasally, no wheezes or crackles. On 2L of oxygen by nasal canula. Cardio regular rate, regular rhythm, S1 normal heart sound, S2 normal heart sound and no murmurs GI normal to inspection, nondistended, normoactive bowel sounds, soft to palpation, non-tender and non-distended GI Narrative: Morbidly obese. Extremity normal capillary refill, no clubbing, cyanosis or edema and no calf tenderness Extremity Narrative: 2-3+ bilateral LE pitting edema. General Extremity: no tenderness to palpation of joints or extremities Skin Skin Narrative: Patient has no evidence of rash. General Skin Exam: no breakdown Neuro oriented x3, CN's II-XII intact bilaterally, moves all extremities, no focal motor deficits, no sensory deficits noted and deep tendon reflexes 2+ bilaterally Sensorium / Orientation: awake, alert, oriented to person, oriented to place and oriented to time Speech: speech normal Motor Exam: strength 5/5 throughout Psych thought process normal, cooperative and affect normal Appearance: appropriate Assessment & Plan Assessment/Plan (1) COPD with acute exacerbation: PLAN: Plan #Acute COPD exacerbation * Patient states she is feeling better. On 2L of oxygen. Breathing treatments bronchodilators. Titrate oxygen to maintain saturation above 90%. * On IV Solu-Medrol. On IV doxycycline. * patient had walking pulse ox today and became very short of breath, though she did not require oxygen. Will therefore dc discharge planning. #Hypertension: * Blood pressure is markedly elevated with systolic in the 190s. * Has been elevated since she was admitted. * She does not have a history of high blood pressure. * started on PO amlodipine and PO metoprolol. * IV hydralazine as needed * #Depression: On bupropion. #Restless leg syndrome: On pramipexole #Super morbid obesity: BMI is 61.8. Complicates acute care, expected recovery and prognosis. DVT prophylaxis: Lovenox 40 mg twice daily. Charges/Coding Visit Charges Inpatient E&M: 08522 Subs Hosp L2
[2023-09-10] MEDS: Ketorolac 30 MG/ML Syringe IV (15:13)
[2023-09-10] MEDS: Acetaminophen 325 MG Tablet 650 MG PO (19:40)
[2023-09-10] MEDS: Pramipexole Di-HCl 0.5 MG Tablet PO (19:41)
[2023-09-10] MEDS: MELATONIN 3 MG TABLET PO (21:49)
[2023-09-11] VITALS (7 sets, daily range): BP systolic 154–161; BP diastolic 82–106; PULSE 75–89; RESP 18–20; TEMP 36.8–37; O2SAT 93–98; BMI 63.8
[2023-09-11] MEDS: Ipratropium 0.5 MG/2.5 ML SOLUTION INHALATION (07:17)
[2023-09-11 07:41] LABS: Absolute Lymphocyte Count 1.02 X10^3/uL (0.83-4.51); Absolute Neutrophil Count 7.8 X10^3/uL (2.0-7.7); Basophil# 0.01 X10^3/uL; Basophil% 0.1 % (0-1); Hematocrit 45.7 % (37-47); Hemoglobin 13.6 g/dL (12.0-15.0); Lymphocyte # 1.02 X10^3/ul (0.83-4.51); Lymphocyte % 11.1 % (19-41); Mean Corp Hgb Conc 29.8 g/dL (32-36); Mean Corpuscular Hgb 29.3 pg (27.0-32.0); Mean Corpuscular Volume 98.5 fL (81-99); Mean Platelet Vol. 10.3 fl (6.2-12.0); Monocyte# 0.29 X10^3/uL; Monocyte% 3.1 % (0-10); NRBC Flagged by Analyzer 0 % (0-5); Neutrophil # 7.77 X10^3/uL (2.7-7.7); Neutrophil % 84.4 % (47-70); Platelet Count 214 K/mm3 (150-450); RBC Distribution Width CV 13.7 % (11.6-14.6); RBC Distribution Width SD 49.5 fl (35.1-43.9); Red Blood Count 4.64 M/mm3 (4.2-5.4); White Blood Count 9.2 K/mm3 (4.4-11.0)
[2023-09-11 08:11] LABS: Anion Gap -2 (5-15); BUN 22 mg/dL (7-18); BUN/Creat Ratio 34.9 RATIO (10-20); Calcium,Total 8.8 mg/dL (8.5-10.1); Chloride 107 mmol/L (98-107); Creatinine, Serum 0.63 mg/dL (0.55-1.02); EST Glomerular Filtration Rate 107 mL/min (>60); Est Glom Filt Rate - Afr Amer 130 mL/min (>60); Estimated Creatinine Clearance 218.26 ml/min; Glucose 161 mg/dL (74-106); Potassium 4.8 mmol/L (3.5-5.1); Sodium Level 139 mmol/L (136-145)
[2023-09-11] MEDS: Cholecalciferol (Vit D3) 125 MCG CAPSULE (5,000 UNITS) PO (08:13)
[2023-09-11] MEDS: Lactobacillis Acidophilus 2 CAP PO (08:13)
[2023-09-11] MEDS: Ascorbic Acid 500 MG Tablet 1000 MG PO (08:13)
[2023-09-11] MEDS: buPROPion (XL) 300 MG TABLET.XL PO (08:13)
[2023-09-11] MEDS: Famotidine 20 MG Tablet PO (08:13)
[2023-09-11] MEDS: Zinc Sulfate 50 mg zinc (220 mg) ORAL capsule PO (08:14)
[2023-09-11] MEDS: Lisinopril 40 MG Tablet PO (08:14)
[2023-09-11] MEDS: amLODIPine 10 MG Tablet PO (08:14)
[2023-09-11] MEDS: Enoxaparin 40 MG/0.4 ML Syringe SC (08:15)
[2023-09-11] MEDS: Metoprolol Tartrate 25 MG Tablet PO (08:15)
[2023-09-11] MEDS: Gabapentin 800 MG Tablet PO (10:03)
[2023-09-11] MEDS: Doxycycline 100 MG in Dextrose 5%-Water (250mL Bag) 250 ML 250 MG IV (10:03)
[2023-09-11] MEDS: buPROPion (XL) 150 MG TABLET.XL PO (10:05)
[2023-09-11] MEDS: MethylPREDNISolone 125 MG/2 ML Vial 60 MG IV (10:05)
--- NOTE | 2023-09-11 12:02 | PCM.DC.SUM ---
Providers Date of Admission: 09/09/23 Date of Discharge: 09/11/23 Primary Care Physician: Out of [facility] Doctor Reason For Visit: AE COPD Diagnosis Discharge Diagnosis (1) COPD with acute exacerbation: Status: Chronic Code(s): J44.1 - Chronic obstructive pulmonary disease with (acute) exacerbation Plan #Acute COPD exacerbation Patient states she is feeling better. On 2L of oxygen. Breathing treatments bronchodilators. Titrate oxygen to maintain saturation above 90%. On IV Solu-Medrol. On IV doxycycline. patient had walking pulse ox today and became very short of breath, though she did not require oxygen. Will therefore dc discharge planning. #Hypertension: Blood pressure is markedly elevated with systolic in the 190s. Has been elevated since she was admitted. She does not have a history of high blood pressure. started on PO amlodipine and PO metoprolol. IV hydralazine as needed #Depression: On bupropion. #Restless leg syndrome: On pramipexole #Super morbid obesity: BMI is 61.8. Complicates acute care, expected recovery and prognosis. DVT prophylaxis: Lovenox 40 mg twice daily. Medications at Discharge Home Medications albuterol sulfate 90 mcg/actuation aerosol inhaler 2 puff inhalation Q4H PRN sob wheezying 05/11/23 buprenorphine 8 mg-naloxone 2 mg sublingual film 1 film sublingual Q24H drug addiction 05/11/23 lisinopril 40 mg tablet 40 mg PO DAILY bp 05/11/23 bupropion HCl 150 mg 24 hr tablet, extended release 150 mg PO DAILY depression 09/08/23 bupropion HCl 300 mg 24 hr tablet, extended release 300 mg PO DAILY depression 09/08/23 gabapentin 800 mg tablet 800 mg PO 4X/DAY pain 09/08/23 ropinirole 1 mg tablet 1 mg PO QHS restless legs 09/08/23 tiotropium bromide 1.25 mcg/actuation mist for inhalation (Spiriva Respimat) 1 puff inhalation QPM ask pcp 09/08/23 promethazine 25 mg tablet 25 mg PO Q8H PRN PRN nausea 09/09/23 metoprolol tartrate 25 mg tablet 25 mg PO BID #60 tabs 09/11/23 prednisone 20 mg tablet 40 mg (2 x 20 mg) PO DAILY #10 tabs 09/11/23 Hospital Course Operations None Procedures None Summary of Care Provided Minutes Spent on Discharge: 45 Hospital Course: Patient is a 48-year-old male with an extensive past medical history as outlined was admitted through the ED on 09/09/2023 with a complaint of shortness of breath. She did have a history of COPD and had been seen in the ER for COPD exacerbation 3 days prior to admission. She was discharged with a prescription for Z-Murphy and prednisone. However subsequently came back complaining of shortness of breath and wheezing again. She also had a cough productive of greenish sputum. She did not have any fever or chills. She was admitted and managed for acute exacerbation of COPD. She was started on IV Solu-Medrol and breathing treatments with bronchodilators. She also placed on IV doxycycline. Her breathing improved and she felt much better. She was weaned off of oxygen to room air. She did not qualify for home oxygen with walking pulse ox ox. She felt much better and was ready to be discharged home and so was discharged on 09/11/2023. She was discharged on p.o. prednisone 40 mg daily for 5 days. Of note patient's blood pressure had been poorly controlled in the hospital. She had been on p.o. lisinopril 40 mg daily at home and so she had p.o. metoprolol 25 mg twice daily added on. Blood pressure control did subsequently improved. She was discharged home on 09/11/2023 and is to follow-up with her PCP within 1 to 2 weeks. Patient seen and examined prior to discharge. She felt much better and was eager to be discharged home. Review of systems otherwise negative. Labs and vitals reviewed. Home medication reviewed and reconciled. Physical Exam Const alert, oriented x3 and no apparent distress Constitutional Narrative: super morbid obesity General Appearance: cooperative, comfortable and well kempt Orientation / Consciousness: awake Exam Limitations: no limitations Nutritional Appearance: morbidly obese HEENT normocephalic, head/scalp atraumatic, hearing grossly normal bilaterally, moist oral mucous membranes and oropharynx normal Mouth: oral and palatal mucosa normal Eyes PERRL, EOMs intact bilaterally and conjunctivae normal Neck no lymphadenopathy, supple and no JVD Lymph Lymphatic: no lymphadenopathy noted and no lymphedema noted Resp Resp Narrative: mildly diminished breath sounds bibasally, no wheezes or crackles. On room air Auscultation: wheezes Cardio regular rate, regular rhythm, S1 normal heart sound, S2 normal heart sound and no murmurs GI normal to inspection, nondistended, normoactive bowel sounds, soft to palpation, non-tender and non-distended GI Narrative: Morbidly obese. Extremity normal to inspection, full ROM, normal capillary refill, no clubbing, cyanosis or edema and no calf tenderness General Extremity: no tenderness to palpation of joints or extremities Skin Skin Narrative: Patient has no evidence of rash. General Skin Exam: no breakdown Neuro oriented x3, CN's II-XII intact bilaterally, moves all extremities, no focal motor deficits, no sensory deficits noted and deep tendon reflexes 2+ bilaterally Sensorium / Orientation: awake, alert, oriented to person, oriented to place and oriented to time Speech: speech normal Motor Exam: strength 5/5 throughout Psych thought process normal, cooperative and affect normal Appearance: appropriate Weight / BMI Weight Weight: 456 lb 2.182 oz Body Mass Index (BMI) 63.8 ABG / Lab / Microbiology Data 09/11/23 07:15 09/11/23 07:15 Laboratory: Laboratory Results - last 24 hr 09/11/23 07:15: WBC 9.2, RBC 4.64, Hgb 13.6, Hct 45.7, MCV 98.5, MCH 29.3, MCHC 29.8 L, RDW Std Deviation 49.5 H, RDW Coeff of [place] 13.7, Plt Count 214, MPV 10.3, Immature Gran % (Auto) 1.300 H, Neut % (Auto) 84.4 H, Lymph % (Auto) 11.1 L, [place] % (Auto) 3.1, Eos % (Auto) 0.0, Baso % (Auto) 0.1, Absolute Neuts (auto) 7.8 H, Absolute Lymphs (auto) 1.02, Nucleated RBC % 0, Sodium 139, Potassium 4.8, Chloride 107, Carbon Dioxide 34.0 H, Anion Gap -2 L, BUN 22 H, Creatinine 0.63, Estim Creat Clear Calc 218.26, Est GFR (MDRD) Af Amer 130, Est GFR (MDRD) Non-Af 107, BUN/Creatinine Ratio 34.9 H, Glucose 161 H, Calcium 8.8 D/C Instructions Discharge Diet: Low fat / Low cholesterol Discharge Activity: Return to Normal Activity Weight Bearing Status: Weight bearing as tolerated Call your doctor if you observe: Fever of 101 or Higher, Shortness of breath, Dizziness and Chest pain Meaningful Use Info Meaningful Use Meaningful Use Diagnoses (Choose all that apply): None applicable Ischemic Stroke Statin Dosing Therapy Reference: STATIN DOSE THERAPY REFERENCE: * Patients > 75 years receive moderate or high dose statin therapy. * Patients 75 years or YOUNGER should receive HIGH intensity statin dose unless contraindicated. You will be required to document reason for non-treatment if statin daily dose does not meet guidelines. HIGH DOSE STATIN THERAPY DAILY Atorvastatin > than or = to 40 mg Rosuvastatin > than or = to 20 mg Amlodipine + Atorvastatin > than or = to 2.5/40 mg Ezetimibe + Simvastatin 10/80 mg Simvastatin 80mg Discharge Plan Admission Admit Date/Time: 09/09/23 00:03 Primary Reason for Your Visit: acute COPD exacerbation Attending Provider: Zaida Rodriguez Primary Care Provider: Brittaney Ferrell,Out of Consulting Providers: Florin Marcelino Instructions Patient Instructions: COPD Meds Discharge Orders/Prescriptions Prescriptions: New metoprolol tartrate 25 mg Tablet 25 mg PO BID Qty: 60 2RF prednisone 20 mg tablet 40 mg PO DAILY Qty: 10 0RF Continued albuterol sulfate 90 mcg/actuation HFA aerosol inhaler 2 puff INHALATION Q4H PRN (Reason: sob wheezying) Patient Comments: INHALE 2 PUFFS BY MOUTH EVERY 4 HOURS NEEDED FOR SHORTNESS OF BREATH OR WHEEZING FOR UP TO 30 DAYS buprenorphine-naloxone 8-2 mg film 1 film sublingual Q24H Patient Comments: PLACE 1 STRIP UNDER THE TONGUE THREE TIMES DAILY FOR 28 DAYS lisinopril 40 mg tablet 40 mg PO DAILY Patient Comments: TAKE 1 TABLET BY MOUTH ONCE DAILY bupropion HCl 150 mg tablet extended release 24 hr 150 mg PO DAILY bupropion HCl 300 mg tablet extended release 24 hr 300 mg PO DAILY gabapentin 800 mg tablet 800 mg PO 4X/DAY ropinirole 1 mg tablet 1 mg PO QHS Spiriva Respimat 1.25 mcg/actuation mist 1 puff INHALATION QPM promethazine 25 mg tablet 25 mg PO Q8H PRN PRN (Reason: nausea) Referrals / Follow Up: Brittaney Ferrell,Out of [Primary Care Provider] - Within 1 Week Disposition Disposition (needs filled in before D/C Order can be placed): Home, Self Care Charges/Coding Visit Charges Inpatient E&M: 14017 Disch Hosp >30min
--- NOTE | 2023-09-11 12:25 | CASEMGMT ---
RN CM into pt room, pt sitting up in chair in no distress. Pt stated needs transportation home. Called hospital van service and RN had already set up transportation home. Pt did not qualify for home O2. Pt declined any additional home going needs.
== END 2023-09-11 13:25 | disposition home or self-care (01) | DRG 140 ==
LOC: ED 23:22 → MS3 09-09 00:12
PROVIDERS: Admitting Provider Internal Medicine; Emergency Provider Emergency Medicine; Visit Provider Student in an Organized Health Care Education/Training Program
DX: J44.1 Chronic obstructive pulmonary disease with (acute) exacerbation (principal); Z68.44 Body mass index [BMI] 60.0-69.9, adult; E66.01 Morbid (severe) obesity due to excess calories; E83.39 Other disorders of phosphorus metabolism; F32.A Depression, unspecified; I10 Essential (primary) hypertension; G25.81 Restless legs syndrome; Z79.899 Other long term (current) drug therapy; Z87.891 Personal history of nicotine dependence
CPT/HCPCS: 36415; 71046; 80048; 80053; 82803; 83735; 84100; 84443; 84484; 85025; 85379; 93005; 94640; 94668; 96365; 96366; 96367; 96372; 96375; 96376; 99221; 99284; J7030; J7040; A4216; G0378

== ENCOUNTER 2023-10-03 13:21 | Emergency (ER) | payer MEDICAID, SELFPAY ==
[2023-10-03] VITALS (7 sets, daily range): BP systolic 144–191; BP diastolic 100–128; PULSE 84–121; RESP 18–30; TEMP 36.1–36.6; O2SAT 92–93; BMI 47.7
--- NOTE | 2023-10-03 13:54 | EX.ED.DYSGE1 ---
HPI <MESFIN Ho - Last Filed: 10/03/23 15:19> History of Present Illness Chief Complaint: Shortness of Breath Narrative Narrative: Patient is a 48-year-old female with history of asthma, COPD, anxiety, obesity, hypertension who presents to the emergency department today for 3 to 4 days of worsening cough, shortness of breath. Patient states that she does have history of exacerbations of her asthma and COPD. Patient did quit smoking almost 1 year ago. Patient denies any fever or chills. Patient states she is using some treatments at home however they are not helping. She denies any fever or chills. She denies any yellow sputum. Patient dates that she has some shortness of breath when she lays flat. PFS <MESFIN Ho - Last Filed: 10/03/23 15:19> [facility]LY [facility] Medical History COPD (chronic obstructive pulmonary disease) Fentanyl use disorder, mild, in sustained remission, abuse Former smoker HTN (hypertension) Pulmonary emboli Home Medications ?Medication ?Instructions ?Recorded ?Last Taken ?Type albuterol sulfate 90 mcg/actuation 2 puff inhalation Q4H PRN sob 05/11/23 05/11/23 History aerosol inhaler wheezying buprenorphine 8 mg-naloxone 2 mg 1 film sublingual Q24H drug 05/11/23 Unknown History sublingual film addiction lisinopril 40 mg tablet 40 mg PO DAILY bp 05/11/23 Unknown History bupropion HCl 150 mg 24 hr tablet, 150 mg PO DAILY depression 09/08/23 Unknown History extended release bupropion HCl 300 mg 24 hr tablet, 300 mg PO DAILY depression 09/08/23 Unknown History extended release gabapentin 800 mg tablet 800 mg PO 4X/DAY pain 09/08/23 Unknown History ropinirole 1 mg tablet 1 mg PO QHS restless legs 09/08/23 Unknown History tiotropium bromide 1.25 1 puff inhalation QPM ask pcp 09/08/23 Unknown History mcg/actuation mist for inhalation (Spiriva Respimat) promethazine 25 mg tablet 25 mg PO Q8H PRN PRN nausea 09/09/23 Unknown History metoprolol tartrate 25 mg tablet 25 mg PO BID #60 tabs 09/11/23 Unknown Rx prednisone 20 mg tablet 40 mg (2 x 20 mg) PO DAILY #10 tabs 09/11/23 Unknown Rx doxycycline hyclate 100 mg capsule 100 mg PO BID 7 days #14 caps 10/03/23 Unknown Rx prednisone 50 mg tablet 50 mg PO DAILY #5 tabs 10/03/23 Unknown Rx Allergy/AdvReac Type Severity Reaction Status Date / Time No Known Allergies Allergy Verified 09/08/23 20:52 Surgical History History of cholecystectomy History of open reduction and internal fixation (ORIF) procedure Social History Smoking Status: Former smoker ROS <MESFIN Ho - Last Filed: 10/03/23 15:19> ROS ED ROS Narrative Constitutional: Negative for fever, chills, weight loss, weakness Eyes: Negative for vision loss, vision change, double vision ENT: Negative for any sore throat, ear pain, congestion Cardiovascular: Negative for any chest pain, tightness, palpitations Respiratory: Negative for any sputum production, hemoptysis.positive for cough, dyspnea, dyspnea on exertion, orthopnea Gastrointestinal: Negative for any abdominal pain, nausea, vomiting, diarrhea, constipation, blood in stool, blood in vomit : Negative for any urinary frequency, dysuria, retention, blood in urine Muscle skeletal: Negative for any neck pain, back pain Neurological: Negative for any headache, syncope, dizziness Skin: Negative for any rashes, itching, abrasions, lacerations Psychiatric: Negative for any depression, anxiety, stress, suicidal ideation, homicidal ideation Hematologic: Negative for any excessive bruising, easy bleeding EXAM <MESFIN Ho - Last Filed: 10/03/23 15:19> Physical Exam Narrative Exam Narrative: Vital signs reviewed. HEET: Head normocephalic atraumatic, TMs clear bilaterally. Posterior pharynx is clear, moist mucous membranes. Nares clear bilaterally. Neck: Supple with no lymphadenopathy or tenderness. No signs of meningismus. Cardiac: Tachycardic rate, no murmurs gallops or rubs, equal peripheral pulses bilaterally. Respiratory: Patient has expiratory wheezes throughout pulmonary examination. No chest tenderness. Abdomen: Soft, nontender, nondistended. No abdominal bruit or pulsatile masses. No hepatosplenomegaly Extremities: No peripheral edema, no signs of gross trauma or deformity. Active full range of motion of all extremities. Neuro: Cranial nerves II through XII intact, no focal neurological deficits. Skin: Clean dry and intact with no rash, purpura, petechiae, vesicles or pustules. Backs/flank: No CVA tenderness, no midline spinal tenderness, no deformity. Psych: Normal mood and affect. No SI, HI or acute psychosis. Const Vital Signs: 10/03/23 13:22 10/03/23 13:24 10/03/23 14:23 Temperature 97.5 F L 97.5 F L Temperature Source Temporal Temporal Pulse Rate 121 H 109 H 109 H Respiratory Rate 30 H 22 H 22 H Respiratory Effort Respiratory Depth Respiratory Pattern Tachypnea Blood Pressure 191/128 H 191/128 H Blood Pressure Mean 149 149 Pulse Ox 93 93 Oxygen Delivery Method Room Air Room Air 10/03/23 14:24 10/03/23 14:28 10/03/23 14:29 Temperature 97.8 F Temperature Source Temporal Pulse Rate 88 Respiratory Rate 22 H Respiratory Effort Short of Breath Respiratory Depth Deep Respiratory Pattern Tachypnea Blood Pressure 148/101 H Blood Pressure Mean 116 Pulse Ox 92 Oxygen Delivery Method Room Air Room Air Room Air 10/03/23 15:00 Temperature 97.8 F Temperature Source Temporal Pulse Rate 84 Respiratory Rate 18 Respiratory Effort Respiratory Depth Respiratory Pattern Blood Pressure 144/100 H Blood Pressure Mean 114 Pulse Ox 92 Oxygen Delivery Method Room Air Positive obese Nutritional Appearance: obese <Dr. Barry Slade, DO - Last Filed: 10/03/23 15:24> Physical Exam Const Vital Signs: 10/03/23 13:22 10/03/23 13:24 10/03/23 14:23 Temperature 97.5 F L 97.5 F L Temperature Source Temporal Temporal Pulse Rate 121 H 109 H 109 H Respiratory Rate 30 H 22 H 22 H Respiratory Effort Respiratory Depth Respiratory Pattern Tachypnea Blood Pressure 191/128 H 191/128 H Blood Pressure Mean 149 149 Pulse Ox 93 93 Oxygen Delivery Method Room Air Room Air 10/03/23 14:24 10/03/23 14:28 10/03/23 14:29 Temperature 97.8 F Temperature Source Temporal Pulse Rate 88 Respiratory Rate 22 H Respiratory Effort Short of Breath Respiratory Depth Deep Respiratory Pattern Tachypnea Blood Pressure 148/101 H Blood Pressure Mean 116 Pulse Ox 92 Oxygen Delivery Method Room Air Room Air Room Air 10/03/23 15:00 Temperature 97.8 F Temperature Source Temporal Pulse Rate 84 Respiratory Rate 18 Respiratory Effort Respiratory Depth Respiratory Pattern Blood Pressure 144/100 H Blood Pressure Mean 114 Pulse Ox 92 Oxygen Delivery Method Room Air [facility] <Ridge Pulido VIMALC - Last Filed: 10/03/23 15:19> [facility] Lab Data Labs: Laboratory Results - last 24 hr 10/03/23 13:40 WBC 4.4 RBC 4.73 Hgb 13.9 Hct 42.6 MCV 90.1 MCH 29.4 MCHC 32.6 RDW Std Deviation 42.1 RDW Coeff of [place] 12.8 Plt Count 205 MPV 10.2 Immature Gran % (Auto) 0.200 Neut % (Auto) 38.8 L Lymph % (Auto) 38.6 [place] % (Auto) 7.4 Eos % (Auto) 14.3 H Baso % (Auto) 0.7 Absolute Neuts (auto) 1.7 L Absolute Lymphs (auto) 1.68 Nucleated RBC % 0 D-Dimer Quant (PE/DVT) 0.37 Sodium 142 Potassium 3.6 Chloride 107 Carbon Dioxide 29.0 Anion Gap 6 BUN 9 Creatinine 0.71 Estim Creat Clear Calc 161.64 Est GFR (MDRD) Af Amer 113 Est GFR (MDRD) Non-Af 94 BUN/Creatinine Ratio 12.7 Glucose 102 Calcium 9.2 Troponin I High Sens 7 B-Natriuretic Peptide 30.1 Radiography Diagnostic Testing: Clinical Impression(s) from Imaging Studies Chest X-Ray 10/03/23 14:05 IMPRESSION: Left lower lobe infiltrate. Electronically Signed: Blaze Aleman MD at 14:27 EDT , EKG Sinus tachycardia: Attestation: I personally reviewed and interpreted this EKG as follows: Comments: Sinus tachycardia, rate of 105 bpm, AK interval 148 ms, QRS duration 82 ms, no acute ST elevation, no acute infarct noted. Treatment and Re-Evaluation :: Differential diagnosis includes however is not limited to: ACS, [place], CHF, PE, community-acquired pneumonia, COPD/asthma exacerbation Patient appears to be in no obvious respiratory distress vital signs show hypertension as well as some tachycardia. Patient has been shortness of breath for the last 3 to 4 days and is here for evaluation. Patient will receive a full respiratory workup, second of the patient's elevated heart rate, shortness of breath, patient will receive a D-dimer as well as a troponin. Patient received breathing treatment as well as IV steroids. She will be reevaluated. Two-view chest x-ray to be ordered. All radiologic examinations were read, reviewed by the emergency department attending. From these reads, a plan of care will be put in place. Patient CBC was unremarkable, chemistries were unremarkable, patient's dimer was negative. Troponin was negative. BNP was negative. Patient's chest x-ray interpreted by the radiologist showed a left lower lobe infiltrate, I do not personally see a infiltrate it is my ER attending however patient on reevaluation did feel much better. Patient had decrease in her expiratory wheezes. At this time, patient be treated with COPD exacerbation. She will continue use her albuterol inhaler as well as her breathing treatments. She will be given doxycycline and prednisone. Instructed return for any worsening symptoms. She will be given a primary care physician. <Dr. Barry Slade, DO - Last Filed: 10/03/23 15:24> [facility] History & Record Review Discussion w/independent historian: Patient Lab Data Attestation: I reviewed the patient's lab results. Labs: Laboratory Results - last 24 hr 10/03/23 13:40 WBC 4.4 RBC 4.73 Hgb 13.9 Hct 42.6 MCV 90.1 MCH 29.4 MCHC 32.6 RDW Std Deviation 42.1 RDW Coeff of [place] 12.8 Plt Count 205 MPV 10.2 Immature Gran % (Auto) 0.200 Neut % (Auto) 38.8 L Lymph % (Auto) 38.6 [place] % (Auto) 7.4 Eos % (Auto) 14.3 H Baso % (Auto) 0.7 Absolute Neuts (auto) 1.7 L Absolute Lymphs (auto) 1.68 Nucleated RBC % 0 D-Dimer Quant (PE/DVT) 0.37 Sodium 142 Potassium 3.6 Chloride 107 Carbon Dioxide 29.0 Anion Gap 6 BUN 9 Creatinine 0.71 Estim Creat Clear Calc 161.64 Est GFR (MDRD) Af Amer 113 Est GFR (MDRD) Non-Af 94 BUN/Creatinine Ratio 12.7 Glucose 102 Calcium 9.2 Troponin I High Sens 7 B-Natriuretic Peptide 30.1 Radiography Diagnostic Testing: Clinical Impression(s) from Imaging Studies Chest X-Ray 10/03/23 14:05 IMPRESSION: Left lower lobe infiltrate. Electronically Signed: Blaze Aleman MD at 14:27 EDT , Treatment and Re-Evaluation :: Differential diagnosis includes however is not limited to: ACS, [place], CHF, PE, community-acquired pneumonia, COPD/asthma exacerbation Patient appears to be in no obvious respiratory distress vital signs show hypertension as well as some tachycardia. Patient has been shortness of breath for the last 3 to 4 days and is here for evaluation. Patient will receive a full respiratory workup, second of the patient's elevated heart rate, shortness of breath, patient will receive a D-dimer as well as a troponin. Patient received breathing treatment as well as IV steroids. She will be reevaluated. Two-view chest x-ray to be ordered. All radiologic examinations were read, reviewed by the emergency department attending. From these reads, a plan of care will be put in place. Patient CBC was unremarkable, chemistries were unremarkable, patient's dimer was negative. Troponin was negative. BNP was negative. Patient's chest x-ray interpreted by the radiologist showed a left lower lobe infiltrate, I do not personally see a infiltrate it is my ER attending however patient on reevaluation did feel much better. Patient had decrease in her expiratory wheezes. At this time, patient be treated with COPD exacerbation. She will continue use her albuterol inhaler as well as her breathing treatments. She will be given doxycycline and prednisone. Instructed return for any worsening symptoms. She will be given a primary care physician. I have personally performed a face to face assessment of the patient and have reviewed the KENDELL Note. I performed a substantive portion of the visit including all aspects of the following. My bangura findings include: History is 48-year-old female with a history of COPD presenting to the emergency room with a multiday history of increased cough and dyspnea. She notes some associated wheezing. She has been using home nebulizer and MDI with no relief. Patient states she was last admitted in the hospital about 1 month ago. No reported fevers. She does note some sputum production. Exam is obese female lying comfortably in the bed. Speaking in multiple full length sentences with the same breath. There is some expiratory wheeze noted. No significant rhonchi. Alert and oriented x 3. Appears well-hydrated. Medical Decison Making my independent interpretation of the chest x-ray is no acute process. Radiology has concerns for a left lower lobe infiltrate. However she is not febrile has a normal white count. Patient received breathing treatments and Solu-Medrol. Cardiac workup unremarkable. D-dimer is negative. Patient be discharged home with a short course of doxycycline and prednisone. Discharge Plan Triage Chief Complaint: Shortness of Breath ED Midlevel Provider: Ridge Pulido ED Provider: Barry Slade Dx/Rx/DC Orders Clinical Impression: Acute exacerbation of chronic obstructive pulmonary disease Instructions: Asthma and COPD Prescriptions: New doxycycline hyclate 100 mg capsule 100 mg PO BID 7 Days Qty: 14 0RF prednisone 50 mg tablet 50 mg PO DAILY Qty: 5 0RF No Action albuterol sulfate 90 mcg/actuation HFA aerosol inhaler 2 puff INHALATION Q4H PRN (Reason: sob wheezying) Patient Comments: INHALE 2 PUFFS BY MOUTH EVERY 4 HOURS NEEDED FOR SHORTNESS OF BREATH OR WHEEZING FOR UP TO 30 DAYS buprenorphine-naloxone 8-2 mg film 1 film sublingual Q24H Patient Comments: PLACE 1 STRIP UNDER THE TONGUE THREE TIMES DAILY FOR 28 DAYS lisinopril 40 mg tablet 40 mg PO DAILY Patient Comments: TAKE 1 TABLET BY MOUTH ONCE DAILY bupropion HCl 150 mg tablet extended release 24 hr 150 mg PO DAILY bupropion HCl 300 mg tablet extended release 24 hr 300 mg PO DAILY gabapentin 800 mg tablet 800 mg PO 4X/DAY ropinirole 1 mg tablet 1 mg PO QHS Spiriva Respimat 1.25 mcg/actuation mist 1 puff INHALATION QPM promethazine 25 mg tablet 25 mg PO Q8H PRN PRN (Reason: nausea) metoprolol tartrate 25 mg Tablet 25 mg PO BID Qty: 60 2RF prednisone 20 mg tablet 40 mg PO DAILY Qty: 10 0RF Primary Care Provider: Care Physician,No Primary Referrals: Isabel Corral MD [Med Staff - Solar Project Engineer] - [facility] Doctor,Out of [Non-Staff] - Activity Restrictions/Additional Instructions: Take antibiotics until finished. Take prednisone until finished Print Language: Welsh Disposition Disposition: Home, Self Care
[2023-10-03] MEDS: 0.9% Normal Saline (1000mL) 1,000 ML 999 ML IV (13:58)
[2023-10-03] MEDS: MethylPREDNISolone 125 MG/2 ML Vial IV (13:58)
--- NOTE | 2023-10-03 14:05 | RAD_ITS ---
STUDY: X-RAY CHEST REASON FOR EXAM: Female, 48 years old. SOB TECHNIQUE: PA and lateral views of the chest. COMPARISON: Comparison is made with prior study dated September 08, 2023. FINDINGS: EKG electrodes are seen. Left lower lobe infiltrate. There is no demonstrated pleural abnormality. Normal size heart. Normal mediastinum and sukhwinder. Normal visualized pulmonary arteries. Normal visualized aortic arch and descending thoracic aorta. Normal visualized thoracic spine. Normal visualized ribs, clavicles, and shoulders. There is no demonstrated abnormality of the visualized soft tissue structures of the upper abdomen. RAD/Chest PA and Lateral IMPRESSION: Left lower lobe infiltrate. Electronically Signed: Blaze Aleman MD at 14:27 EDT ,
[2023-10-03 14:22] LABS: Absolute Lymphocyte Count 1.68 X10^3/uL (0.83-4.51); Absolute Neutrophil Count 1.7 X10^3/uL (2.0-7.7); Basophil# 0.03 X10^3/uL; Basophil% 0.7 % (0-1); Eosinophil# 0.62 X10^3/uL; Eosinophils% 14.3 % (0-5); Hematocrit 42.6 % (37-47); Hemoglobin 13.9 g/dL (12.0-15.0); Lymphocyte # 1.68 X10^3/ul (0.83-4.51); Lymphocyte % 38.6 % (19-41); Mean Corp Hgb Conc 32.6 g/dL (32-36); Mean Corpuscular Hgb 29.4 pg (27.0-32.0); Mean Corpuscular Volume 90.1 fL (81-99); Mean Platelet Vol. 10.2 fl (6.2-12.0); Monocyte# 0.32 X10^3/uL; Monocyte% 7.4 % (0-10); NRBC Flagged by Analyzer 0 % (0-5); Neutrophil # 1.69 X10^3/uL (2.7-7.7); Neutrophil % 38.8 % (47-70); Platelet Count 205 K/mm3 (150-450); RBC Distribution Width CV 12.8 % (11.6-14.6); RBC Distribution Width SD 42.1 fl (35.1-43.9); Red Blood Count 4.73 M/mm3 (4.2-5.4); White Blood Count 4.4 K/mm3 (4.4-11.0)
[2023-10-03] MEDS: Albuterol 2.5 MG/3 ML VIAL.NEB. INHALATION (14:22)
[2023-10-03] MEDS: Ipratropium/Albuterol Sulfate 3 ML AMPUL.NEB INHALATION (14:22)
[2023-10-03 14:34] LABS: Anion Gap 6 (5-15); BUN 9 mg/dL (7-18); BUN/Creat Ratio 12.7 RATIO (10-20); Calcium,Total 9.2 mg/dL (8.5-10.1); Chloride 107 mmol/L (98-107); Creatinine, Serum 0.71 mg/dL (0.55-1.02); EST Glomerular Filtration Rate 94 mL/min (>60); Est Glom Filt Rate - Afr Amer 113 mL/min (>60); Estimated Creatinine Clearance 161.64 ml/min; Glucose 102 mg/dL (74-106); Potassium 3.6 mmol/L (3.5-5.1); Sodium Level 142 mmol/L (136-145); Troponin-I HS 7 pg/mL (3.0-54.0)
[2023-10-03 14:53] LABS: BNP,B-Type NATRIURETIC PEPTIDE 30.1 pg/mL (0-100)
[2023-10-03 15:07] LABS: D-Dimer Quantitative (DVT/PE) 0.37 FEU/ug/m (0.27-0.49)
[2023-10-03] MEDS: Doxycycline 100 MG CAPSULE PO (15:32)
== END 2023-10-03 15:36 | disposition home or self-care (01) ==
PROVIDERS: Nurse Practitioner; Emergency Provider Emergency Medicine; Visit Provider Emergency Medicine
DX: J44.1 Chronic obstructive pulmonary disease with (acute) exacerbation (principal); Z87.891 Personal history of nicotine dependence; Z86.711 Personal history of pulmonary embolism
CPT/HCPCS: 71046; 80048; 83880; 84484; 85025; 85379; 93005; 94640; 96361; 96374; 99284; J7030; A4216

== ENCOUNTER 2023-10-15 13:04 | Emergency (ER) | payer MEDICAID, SELFPAY ==
[2023-10-15 13:04] VITALS: BP 132/77; PULSE 101; RESP 22; TEMP 37.2; O2SAT 91
[2023-10-15 13:06] VITALS: BP 107/72; PULSE 96; RESP 20; TEMP 36.2; O2SAT 89; BMI 59.3
[2023-10-15 13:28] VITALS: O2SAT 90
--- NOTE | 2023-10-15 13:29 | EKG12_ITS ---
Test Reason : SOB Blood Pressure : / mmHG Vent. Rate : 091 BPM Atrial Rate : 091 BPM P-R Int : 136 ms QRS Dur : 090 ms QT Int : 354 ms P-R-T Axes : 049 039 024 degrees QTc Int : 435 ms Normal sinus rhythm Normal ECG Confirmed by CHAN GOVEA, YAIR ([id number]), film or videotape editor LOYDA MACHADO ([id number]) on 10/17/2023 8:14:54 AM Referred By: Confirmed By:YAIR GILES MD
--- NOTE | 2023-10-15 13:30 | ED.VIS.DYS ---
HPI History of Present Illness Chief Complaint: Cough Informant: patient Onset/Context/Timing Onset: Days Context: gradual Timing: Continuous Quality: Positive for Wheezing Current Severity: Mild Maximum Severity: Mild Worsened by: Coughing Relieved by: Albuterol Associated Symptoms cough and green sputum Chest Pain: Positive for None Narrative Narrative: 48-year-old female history of COPD, prior PE and hypertension. Says she has had a cough of greenish sputum for the last 3 days with wheezing and shortness of breath. No chest pain. No hemoptysis. No leg pain or swelling. She has had some mild nausea without vomiting. No fever. Thinks that this is a COPD flare. Said the dry hot weather is really bothering her. PE Risk Factors: Positive for Prior DVT or PE; Negative for Cancer, OCP + Smoking + > 35, Recent immobilization, Recent surgery or Recent travel Prior similar symptoms: Yes Recent Illness/Hospitalization: Yes [facility] Medical History Morbid obesity with BMI of 60.0-69.9, adult Fentanyl use disorder, mild, in sustained remission, abuse Pulmonary emboli Former smoker COPD (chronic obstructive pulmonary disease) HTN (hypertension) Home Medications ?Medication ?Instructions ?Recorded ?Last Taken ?Type albuterol sulfate 90 mcg/actuation 2 puff inhalation Q4H PRN sob 05/11/23 05/11/23 History aerosol inhaler wheezying buprenorphine 8 mg-naloxone 2 mg 1 film sublingual Q24H drug 05/11/23 Unknown History sublingual film addiction lisinopril 40 mg tablet 40 mg PO DAILY bp 05/11/23 Unknown History bupropion HCl 150 mg 24 hr tablet, 150 mg PO DAILY depression 09/08/23 Unknown History extended release bupropion HCl 300 mg 24 hr tablet, 300 mg PO DAILY depression 09/08/23 Unknown History extended release gabapentin 800 mg tablet 800 mg PO 4X/DAY pain 09/08/23 Unknown History ropinirole 1 mg tablet 1 mg PO QHS restless legs 09/08/23 Unknown History tiotropium bromide 1.25 1 puff inhalation QPM ask pcp 09/08/23 Unknown History mcg/actuation mist for inhalation (Spiriva Respimat) promethazine 25 mg tablet 25 mg PO Q8H PRN PRN nausea 09/09/23 Unknown History metoprolol tartrate 25 mg tablet 25 mg PO BID #60 tabs 09/11/23 Unknown Rx prednisone 20 mg tablet 40 mg (2 x 20 mg) PO DAILY #10 tabs 09/11/23 Unknown Rx prednisone 50 mg tablet 50 mg PO DAILY #5 tabs 10/03/23 Unknown Rx prednisone 20 mg tablet 40 mg (2 x 20 mg) PO DAILY 7 days 10/15/23 Unknown Rx #14 tabs Allergy/AdvReac Type Severity Reaction Status Date / Time No Known Allergies Allergy Verified 10/15/23 13:30 Surgical History History of open reduction and internal fixation (ORIF) procedure History of cholecystectomy Social History Smoking Status: Former smoker ROS ROS ED ROS Narrative Cough of green sputum. Shortness of breath and wheezing. Review of Systems ROS Unobtainable: Denies due to encephalopathy Constitutional Constitutional ED: Denies chills or fever(s) Eyes Eyes: Denies blurry vision ENT ENT ED: Denies ear pain Cardiovascular Cardiovascular: Denies chest pain, palpitations or racing heartbeat Respiratory/Chest Respiratory/Chest: Reports cough, dyspnea and sputum Gastrointestinal Gastrointestinal: Reports nausea; Denies abdominal pain, constipation, diarrhea, melena or vomiting Genitourinary Genitourinary ED: Denies dysuria or hematuria Musculoskeletal Musculoskeletal: Denies arthralgias or back pain Integumentary Denies abscess or Abrasions Neurologic Neurologic: Denies headache(s) Psychiatric Psychiatric: Denies anxiety or depression Endocrine Endocrinology: Denies cold intolerance Hematologic/Lymphatic Hematologic/Lymphatic: Denies easy bleeding, easy bruising or lymphadenopathy Allergic/Immunologic Allergic/Immunologic ED: Denies mouth swelling, tongue swelling or urticaria EXAM Physical Exam Narrative Exam Narrative: 48-year-old female vital signs stable pulse ox is 8991% on room air amount epoxy. No distress. Sitting upright in bed. H EENT exam unremarkable. Neck nontender. No JVD. Lungs prolonged expiratory phase. Expiratory wheezes. No rales or rhonchi. Equal symmetrical. Heart regular rhythm no murmur rate about 95. Chest wall and ribs nontender. Abdomen soft nontender. Moving all 4 extremities. Normal strength. Calves are nontender without edema or cords. Neurologically she is awake and alert with no focal motor deficits. Const Vital Signs: 10/15/23 13:04 10/15/23 13:06 10/15/23 13:28 Temperature 99 F 97.2 F L Temperature Source Temporal Temporal Pulse Rate 101 H 96 Respiratory Rate 22 H 20 H Respiratory Effort Short of Breath Respiratory Depth Shallow Respiratory Pattern Tachypnea Blood Pressure 132/77 H 107/72 Blood Pressure Mean 95 83 Pulse Ox 91 89 Oxygen Delivery Method Room Air Room Air Room Air 10/15/23 13:46 Temperature Temperature Source Pulse Rate 88 Respiratory Rate 20 H Respiratory Effort Respiratory Depth Respiratory Pattern Blood Pressure Blood Pressure Mean Pulse Ox Oxygen Delivery Method Positive well nourished and well developed; Negative for cachectic, contractures or unkempt General Appearance ED: well developed and NAD; Negative for unkempt, cachectic, contractures or pallor Nutritional Appearance: Negative for cachectic HEENT Reports moist mucous membranes Negative for atraumatic, trauma or tenderness Eyes PERRL and EOMs intact bilaterally General Eye ED: Negative for pale conjunctiva or scleral icterus Neck no lymphadenopathy, supple, no meningeal signs and no JVD General: Negative for tenderness Lymph Lymphatic: Negative for other Resp No normal respiratory effort and No clear to auscultation bilaterally Resp Narrative: Prolonged expiratory phase. Wheezing bilaterally. No rales or rhonchi. Auscultation: wheezes; Negative for rales or rhonchi Cardio regular rate, regular rhythm, S1 normal heart sound, S2 normal heart sound and no murmurs Rate: Negative for bradycardia or tachycardic Rhythm: Negative for abnormal rhythm GI non-tender, non-distended and no masses Inspection: Negative for other Auscultation: normoactive bowel sounds Palpation: soft; Negative for tender, guarding or rebound tenderness present Back/Spine no CVA tenderness and normal to inspection General Back: Negative for CVA tenderness Extremity normal to inspection General Extremety ED: Negative for edema, tenderness or other findings General Extremity: Negative for edema or other findings Neuro oriented x3, No CN's II-XII intact bilaterally and No no sensory deficits noted Sensorium / Orientation: alert, oriented to person, oriented to place and oriented to time; Negative for orientation impaired, confused, lethargic or stuporous Speech: speech normal Motor Exam: strength 5/5 throughout; Negative for general weakness or strength abnormal Psych mental status grossly normal Appearance: Negative for unkempt Attitude: No agitated and No other Mood & Affect: Negative for depressed, anxious or tearful Thought Process: normal thought process Skin no wounds and skin turgor normal General Skin Exam: Negative for jaundice or pallor Lesions: no lesions Rashes: no rashes Trauma: Negative for abrasion, laceration or puncture MDM MDM MDM Narrative Medical decision making narrative: 48-year-old female suspect COPD flare rule out pneumonia. Patient was treated with aerosols DuoNeb and albuterol. Oral prednisone. Zofran for nausea. Chest x-ray and EKG will be obtained. Clinically no signs of pneumonia. Repeat exam at 2:52 PM patient doing well. Feels improved. She will be discharged home on prednisone 40 mg a day for a week. She has inhalers at home. [facility] she has not been seen here as of yet but was planning to get a primary care physician locally there. She does return if worse. History & Record Review Discussion w/independent historian: Patient Additional record(s) reviewed:: Prior inpatient record, Prior outpatient record, Prior ED visit, Prior labs and No prior records Radiography Chest X-Ray - ED: 2 View, Read by ED Physician, Read by Radiologist, Normal, Heart, Lungs, Mediastinum, Bony Structures, No Acute Disease and Chronic Changes Diagnostic Testing: Clinical Impression(s) from Imaging Studies Chest X-Ray 10/15/23 13:55 IMPRESSION: No acute abnormality is seen. Electronically Signed: Blaze Aleman MD at 14:11 EDT , Chest x-ray, 2 views, AP and lateral, interpreted both of his open radiology shows no acute abnormality. Normal cardiac silhouette. Normal lung murray. There is soft tissue shadowing in both lower bases. No infiltrates. Rhythm Strip Rhythm Strip: Sinus Rhythm Rate: 91 Ectopy: None EKG Initial EKG: Attestation: I personally reviewed and interpreted this EKG as follows: Interpretation: Sinus Rhythm and No Acute Injury Pattern Comments: Normal sinus rhythm rate of 91 no acute signs of IN, ischemia or dysrhythmia. Discharge Plan Triage Chief Complaint: Cough ED Provider: Rob Greer Dx/Rx/DC Orders Clinical Impression: COPD exacerbation, History of hypertension Instructions: ED COPD Flare Prescriptions: New prednisone 20 mg tablet 40 mg PO DAILY 7 Days Qty: 14 0RF No Action albuterol sulfate 90 mcg/actuation HFA aerosol inhaler 2 puff INHALATION Q4H PRN (Reason: sob wheezying) Patient Comments: INHALE 2 PUFFS BY MOUTH EVERY 4 HOURS NEEDED FOR SHORTNESS OF BREATH OR WHEEZING FOR UP TO 30 DAYS buprenorphine-naloxone 8-2 mg film 1 film sublingual Q24H Patient Comments: PLACE 1 STRIP UNDER THE TONGUE THREE TIMES DAILY FOR 28 DAYS lisinopril 40 mg tablet 40 mg PO DAILY Patient Comments: TAKE 1 TABLET BY MOUTH ONCE DAILY prednisone 50 mg tablet 50 mg PO DAILY Qty: 5 0RF bupropion HCl 150 mg tablet extended release 24 hr 150 mg PO DAILY bupropion HCl 300 mg tablet extended release 24 hr 300 mg PO DAILY gabapentin 800 mg tablet 800 mg PO 4X/DAY ropinirole 1 mg tablet 1 mg PO QHS Spiriva Respimat 1.25 mcg/actuation mist 1 puff INHALATION QPM promethazine 25 mg tablet 25 mg PO Q8H PRN PRN (Reason: nausea) metoprolol tartrate 25 mg Tablet 25 mg PO BID Qty: 60 2RF prednisone 20 mg tablet 40 mg PO DAILY Qty: 10 0RF Primary Care Provider: Care Physician,No Primary Referrals: Saadia Diaz MD [Med Staff - Developer Evangelist] - As soon as possible Care Physician,No Primary [Primary Care Provider] - Activity Restrictions/Additional Instructions: Use your inhalers as needed. Prednisone 40 mg a day starting tomorrow. Follow-up with local primary care physician to ensure you are improving or return if worse. Print Language: Occitan Disposition Disposition: Home, Self Care
[2023-10-15] MEDS: predniSONE 20 MG Tablet 60 MG PO (13:37)
[2023-10-15] MEDS: Ondansetron ODT 4 MG Tablet PO (13:37)
[2023-10-15] MEDS: Ipratropium/Albuterol Sulfate 3 ML AMPUL.NEB INHALATION (13:38)
[2023-10-15] MEDS: Albuterol 2.5 MG/3 ML VIAL.NEB. INHALATION (13:38)
[2023-10-15 13:46] VITALS: PULSE 88; RESP 20
--- NOTE | 2023-10-15 13:55 | RAD_ITS ---
STUDY: X-RAY CHEST REASON FOR EXAM: Female, 48 years old. copd TECHNIQUE: PA and lateral views of the chest. COMPARISON: Comparison is made with prior study dated 06/04/2019 FINDINGS: The lungs are clear and expanded. Scattered calcified granulomas. There is no demonstrated pleural abnormality. Normal size heart. Normal mediastinum and sukhwinder. Normal visualized pulmonary arteries. Normal visualized aortic arch and descending thoracic aorta. There are diffuse degenerative changes of the visualized thoracic spine. Normal visualized ribs, clavicles, and shoulders. There is no demonstrated abnormality of the visualized soft tissue structures of the upper abdomen. RAD/Chest PA and Lateral IMPRESSION: No acute abnormality is seen. Electronically Signed: Blaze Aleman MD at 14:11 EDT ,
[2023-10-15 14:55] VITALS: BP 104/76; PULSE 85; RESP 18; TEMP 36.3; O2SAT 96
== END 2023-10-15 15:04 | disposition home or self-care (01) ==
PROVIDERS: Emergency Provider Emergency Medicine; Visit Provider Emergency Medicine
DX: J44.1 Chronic obstructive pulmonary disease with (acute) exacerbation (principal); I10 Essential (primary) hypertension; Z87.891 Personal history of nicotine dependence; Z79.51 Long term (current) use of inhaled steroids; Z79.899 Other long term (current) drug therapy; Z86.711 Personal history of pulmonary embolism
CPT/HCPCS: 71046; 93005; 94640; 99282

== ENCOUNTER 2023-10-28 17:34 | Emergency (ER) | payer MEDICAID, SELFPAY ==
[2023-10-28 17:34] VITALS: BP 149/110; BP 160/101; PULSE 114; RESP 14; RESP 20; TEMP 35.7; O2SAT 90; O2SAT 91; BMI 47.4
[2023-10-28 18:34] VITALS: RESP 18
[2023-10-28 18:47] LABS: Absolute Lymphocyte Count 2.12 X10^3/uL (0.83-4.51); Absolute Neutrophil Count 3.1 X10^3/uL (2.0-7.7); Basophil# 0.02 X10^3/uL; Basophil% 0.3 % (0-1); Eosinophil# 0.46 X10^3/uL; Eosinophils% 7.3 % (0-5); Hematocrit 41.8 % (37-47); Hemoglobin 13.4 g/dL (12.0-15.0); Lymphocyte # 2.12 X10^3/ul (0.83-4.51); Lymphocyte % 33.7 % (19-41); Mean Corp Hgb Conc 32.1 g/dL (32-36); Mean Corpuscular Hgb 29.2 pg (27.0-32.0); Mean Corpuscular Volume 91.1 fL (81-99); Mean Platelet Vol. 10.2 fl (6.2-12.0); Monocyte# 0.55 X10^3/uL; Monocyte% 8.7 % (0-10); NRBC Flagged by Analyzer 0 % (0-5); Neutrophil # 3.13 X10^3/uL (2.7-7.7); Neutrophil % 49.8 % (47-70); Platelet Count 198 K/mm3 (150-450); RBC Distribution Width CV 12.5 % (11.6-14.6); RBC Distribution Width SD 41.2 fl (35.1-43.9); Red Blood Count 4.59 M/mm3 (4.2-5.4); White Blood Count 6.3 K/mm3 (4.4-11.0)
[2023-10-28 19:10] LABS: Alcohol, Blood (Medical)-Serum < 3.0 mg/dL
[2023-10-28 19:12] LABS: Anion Gap 5 (5-15); BUN 20 mg/dL (7-18); BUN/Creat Ratio 31.2 RATIO (10-20); Calcium,Total 9.1 mg/dL (8.5-10.1); Chloride 107 mmol/L (98-107); Creatinine, Serum 0.64 mg/dL (0.55-1.02); EST Glomerular Filtration Rate 105 mL/min (>60); Est Glom Filt Rate - Afr Amer 128 mL/min (>60); Glucose 108 mg/dL (74-106); Potassium 4.4 mmol/L (3.5-5.1); Sodium Level 140 mmol/L (136-145)
[2023-10-28 19:15] LABS: Internal QC Validated? YES +Cl - CLEAR BKGD; Pregnancy, Serum, hCG Quali. NEGATIVE Negative
[2023-10-28 19:20] LABS: Amphetamine Urine VISTA NEGATIVE (<1000 ng/mL); Barbiturate Urine VISTA NEGATIVE (< 200 ng/mL); Benzodiazepine Urine VISTA NEGATIVE (< 200 ng/mL); Cocaine Urine VISTA NEGATIVE (< 300 ng/mL); Ecstacy Urine VISTA POSITIVE (< 500 ng/mL); Methadone Urine VISTA NEGATIVE (< 300 ng/mL); PCP Urine VISTA NEGATIVE (< 25 ng/mL); THC Urine VISTA NEGATIVE (< 50 ng/mL); Vista UDS pH Range 5
--- NOTE | 2023-10-28 19:54 | EX.ED.VIS.PS ---
HPI HPI - Psych History of Present Illness Chief Complaint: Suicidal Narrative Narrative: 48-year-old female presenting with depression. She has a history of depression and PTSD. She states she lost her fianc? to an overdose in July and she feels suicidal. She wants to kill herself on her sleeping pills. Patient feels that if she was sent home she would definitely follow through. She has been hospitalized in the past for similar complaints. [facility] Medical History Depression Morbid obesity with BMI of 60.0-69.9, adult Fentanyl use disorder, mild, in sustained remission, abuse Pulmonary emboli Former smoker COPD (chronic obstructive pulmonary disease) HTN (hypertension) Home Medications ?Medication ?Instructions ?Recorded ?Last Taken ?Type albuterol sulfate 90 mcg/actuation 2 puff inhalation Q4H PRN sob 05/11/23 05/11/23 History aerosol inhaler wheezying buprenorphine 8 mg-naloxone 2 mg 1 film sublingual Q24H drug 05/11/23 Unknown History sublingual film addiction lisinopril 40 mg tablet 40 mg PO DAILY bp 05/11/23 Unknown History bupropion HCl 150 mg 24 hr tablet, 150 mg PO DAILY depression 09/08/23 Unknown History extended release bupropion HCl 300 mg 24 hr tablet, 300 mg PO DAILY depression 09/08/23 Unknown History extended release gabapentin 800 mg tablet 800 mg PO 4X/DAY pain 09/08/23 Unknown History ropinirole 1 mg tablet 1 mg PO QHS restless legs 09/08/23 Unknown History tiotropium bromide 1.25 1 puff inhalation QPM ask pcp 09/08/23 Unknown History mcg/actuation mist for inhalation (Spiriva Respimat) promethazine 25 mg tablet 25 mg PO Q8H PRN PRN nausea 09/09/23 Unknown History metoprolol tartrate 25 mg tablet 25 mg PO BID #60 tabs 09/11/23 Unknown Rx prednisone 20 mg tablet 40 mg (2 x 20 mg) PO DAILY #10 tabs 09/11/23 Unknown Rx prednisone 50 mg tablet 50 mg PO DAILY #5 tabs 10/03/23 Unknown Rx prednisone 20 mg tablet 40 mg (2 x 20 mg) PO DAILY 7 days 10/15/23 Unknown Rx #14 tabs Allergy/AdvReac Type Severity Reaction Status Date / Time No Known Allergies Allergy Verified 10/28/23 17:34 Surgical History History of open reduction and internal fixation (ORIF) procedure History of cholecystectomy Social History Smoking Status: Former smoker ROS ROS ED Constitutional Constitutional ED: Denies chills, fever(s) or sweats Eyes Eyes: Denies blurry vision or change in vision ENT ENT ED: Denies ear pain or sore throat Cardiovascular Cardiovascular: Denies chest pain, palpitations or racing heartbeat Respiratory/Chest Respiratory/Chest: Denies cough, dyspnea or sputum Gastrointestinal Gastrointestinal: Denies abdominal pain, constipation, diarrhea, nausea or vomiting Genitourinary Genitourinary ED: Denies dysuria, hematuria or urinary frequency Musculoskeletal Musculoskeletal: Denies arthralgias, myalgias or neck pain Integumentary Denies abscess, Abrasions or rash Neurologic Neurologic: Denies headache(s), paresthesias or weakness Psychiatric Psychiatric: Reports depression, suicidal ideation and suicidal thoughts; Denies anxiety Endocrine Endocrinology: Denies polydipsia or polyuria EXAM Physical Exam Const Vital Signs: 10/28/23 17:34 10/28/23 17:34 10/28/23 18:34 Temperature 96.3 F L Temperature Source Temporal Pulse Rate 114 H 114 H Respiratory Rate 14 20 H 18 Blood Pressure 149/110 H 160/101 H Blood Pressure Mean 123 120 Pulse Ox 90 91 Oxygen Delivery Method Room Air Room Air Room Air Positive well nourished General Appearance ED: NAD; Negative for pallor HEENT Reports moist mucous membranes normocephalic and atraumatic Eyes PERRL and EOMs intact bilaterally Resp normal respiratory effort and clear to auscultation bilaterally Auscultation: Negative for rales, rhonchi or wheezes Cardio Rate: regular rate Rhythm: regular rhythm Neuro oriented x3 and CN's II-XII intact bilaterally Psych mental status grossly normal, denies hallucinations and denies homicidal ideation Appearance: grossly normal Attitude: calm Activity / Motor Behavior: appropriate eye contact Speech: normal speech Mood & Affect: sad and tearful Thought Process: No circumstantial, No disorganized, No confused and No confabulating Thought Content: suicidality, No homicidality, No phobia(s), No delusion(s) and No hallucination(s) Attention / Concentration: attention grossly intact and concentration grossly intact Memory / Cognition: memory grossly intact and cognition grossly intact Insight: limited Judgement: limited Skin General Skin Exam: Negative for jaundice or pallor MDM MDM MDM Narrative Medical decision making narrative: Patient presenting with suicidal thoughts and plan to overdose on sleeping pills. Patient feels strongly that she will take her life if she sent home. Medical screening labs were obtained and she is medically cleared. CBC, BMP unremarkable. hCG is negative. EtOH normal. Urine drug screen positive for MDMA however patient is on bupropion which may cross-react. Patient is medically cleared at this time. Patient was seen by crisis and they agree the patient need to be placed. Patient is accepted to [facility]. She will be transported when a squad available. Impression: 1. Depression 2. Suicidal ideation Lab Data Labs: Laboratory Results - last 24 hr 10/28/23 10/28/23 18:35 18:40 WBC 6.3 RBC 4.59 Hgb 13.4 Hct 41.8 MCV 91.1 MCH 29.2 MCHC 32.1 RDW Std Deviation 41.2 RDW Coeff of [place] 12.5 Plt Count 198 MPV 10.2 Immature Gran % (Auto) 0.200 Neut % (Auto) 49.8 Lymph % (Auto) 33.7 [place] % (Auto) 8.7 Eos % (Auto) 7.3 H Baso % (Auto) 0.3 Absolute Neuts (auto) 3.1 Absolute Lymphs (auto) 2.12 Nucleated RBC % 0 Sodium 140 Potassium 4.4 Chloride 107 Carbon Dioxide 28.0 Anion Gap 5 BUN 20 H Creatinine 0.64 Estim Creat Clear Calc 178.70 Est GFR (MDRD) Af Amer 128 Est GFR (MDRD) Non-Af 105 BUN/Creatinine Ratio 31.2 H Glucose 108 H Calcium 9.1 Serum , Qual NEGATIVE Urine Opiates Screen NEGATIVE Urine Methadone Screen NEGATIVE Ur Barbiturates Screen NEGATIVE Ur Phencyclidine Scrn NEGATIVE Ur Amphetamines Screen NEGATIVE MDMA (Ecstasy) Screen POSITIVE H U Benzodiazepines Scrn NEGATIVE Urine Cocaine Screen NEGATIVE U Cannabinoids Screen NEGATIVE Ur Drug Screen Comment Ethyl Alcohol < 3.0 Discharge Plan Triage Chief Complaint: Suicidal ED Provider: Shorty Edmond Dx/Rx/DC Orders Prescriptions: No Action albuterol sulfate 90 mcg/actuation HFA aerosol inhaler 2 puff INHALATION Q4H PRN (Reason: sob wheezying) Patient Comments: INHALE 2 PUFFS BY MOUTH EVERY 4 HOURS NEEDED FOR SHORTNESS OF BREATH OR WHEEZING FOR UP TO 30 DAYS buprenorphine-naloxone 8-2 mg film 1 film sublingual Q24H Patient Comments: PLACE 1 STRIP UNDER THE TONGUE THREE TIMES DAILY FOR 28 DAYS lisinopril 40 mg tablet 40 mg PO DAILY Patient Comments: TAKE 1 TABLET BY MOUTH ONCE DAILY prednisone 50 mg tablet 50 mg PO DAILY Qty: 5 0RF bupropion HCl 150 mg tablet extended release 24 hr 150 mg PO DAILY bupropion HCl 300 mg tablet extended release 24 hr 300 mg PO DAILY gabapentin 800 mg tablet 800 mg PO 4X/DAY ropinirole 1 mg tablet 1 mg PO QHS Spiriva Respimat 1.25 mcg/actuation mist 1 puff INHALATION QPM promethazine 25 mg tablet 25 mg PO Q8H PRN PRN (Reason: nausea) metoprolol tartrate 25 mg Tablet 25 mg PO BID Qty: 60 2RF prednisone 20 mg tablet 40 mg PO DAILY Qty: 10 0RF prednisone 20 mg tablet 40 mg PO DAILY 7 Days Qty: 14 0RF Primary Care Provider: Care Physician,No Primary Referrals: Care Physician,No Primary [Primary Care Provider] - Print Language: Slovak
[2023-10-29 02:19] VITALS: BP 157/95; PULSE 106; RESP 18; TEMP 36.9; O2SAT 91
[2023-10-29 07:02] VITALS: BP 105/62; PULSE 109; RESP 18; TEMP 36.9; O2SAT 91
[2023-10-29] MEDS: Albuterol Sulfate 8 gm Inhaler (60 puffs) 2 PUFF INHALATION (07:39)
== END 2023-10-29 08:36 ==
PROVIDERS: Emergency Provider Student in an Organized Health Care Education/Training Program; Visit Provider Student in an Organized Health Care Education/Training Program
DX: F32.A Depression, unspecified (principal); J44.9 Chronic obstructive pulmonary disease, unspecified; R45.851 Suicidal ideations; I10 Essential (primary) hypertension; Z87.891 Personal history of nicotine dependence; Z79.899 Other long term (current) drug therapy; Z79.51 Long term (current) use of inhaled steroids; Z86.711 Personal history of pulmonary embolism
CPT/HCPCS: 80048; 80307; 80320; 84703; 85025; 99284; G0480

== ENCOUNTER 2023-11-20 17:54 | Observation (INO) | payer MEDICAID, SELFPAY ==
[2023-11-20] VITALS (11 sets, daily range): BP systolic 125–176; BP diastolic 67–112; PULSE 64–104; RESP 16–30; TEMP 36.2–37.2; O2SAT 83–98; BMI 60.5; BMI 59.3
--- NOTE | 2023-11-20 18:12 | EKG12_ITS ---
Test Reason : HEADACHE Blood Pressure : / mmHG Vent. Rate : 101 BPM Atrial Rate : 101 BPM P-R Int : 146 ms QRS Dur : 092 ms QT Int : 340 ms P-R-T Axes : 064 036 041 degrees QTc Int : 440 ms Sinus tachycardia Otherwise normal ECG Confirmed by AMMON GOVEA, GRANT ([id number]), editor greeting card VIVIANE ORTIZ ([id number]) on 11/26/2023 1:45:41 PM Referred By: Confirmed By:KOJO VERDE MD
--- NOTE | 2023-11-20 18:13 | EDS_ITS ---
HPI History of Present Illness Chief Complaint: Headache Narrative Narrative: 48-year-old female with history of migraines, COPD presenting with headache. She describes it as diffuse. It was not acute in onset. She has had it for 3 days. No fevers or chills. No neck stiffness. She has had nausea and vomiting however. She states that with her history of migraines lasting 3 days she came in for evaluation. It was noted that she was 83% on room air. She was placed on 2 L nasal cannula and her headache is now resolved. She states she has not had any respiratory complaints that are new. She is chronically short of breath secondary to COPD. She quit smoking several months ago. She also reports that she is in rehab right now at [facility] and she has not been using her CPAP there. Her signal repairer is with her and states that she is allowed to have this but she did not know that she needed it. The patient herself did not know she was allowed to have it. She has been sleeping most of the time. She denies chest pain. [facility] Medical History Depression Morbid obesity with BMI of 60.0-69.9, adult Fentanyl use disorder, mild, in sustained remission, abuse Pulmonary emboli Former smoker COPD (chronic obstructive pulmonary disease) HTN (hypertension) Home Medications ?Medication ?Instructions ?Recorded ?Last Taken ?Type albuterol sulfate 90 mcg/actuation 2 puff inhalation Q4H PRN sob 05/11/23 05/11/23 History aerosol inhaler wheezying buprenorphine 8 mg-naloxone 2 mg 1 film sublingual Q24H drug 05/11/23 Unknown History sublingual film addiction lisinopril 40 mg tablet 40 mg PO DAILY bp 05/11/23 Unknown History bupropion HCl 150 mg 24 hr tablet, 150 mg PO DAILY depression 09/08/23 Unknown History extended release bupropion HCl 300 mg 24 hr tablet, 300 mg PO DAILY depression 09/08/23 Unknown History extended release gabapentin 800 mg tablet 800 mg PO 4X/DAY pain 09/08/23 Unknown History tiotropium bromide 1.25 1 puff inhalation QPM ask pcp 09/08/23 Unknown History mcg/actuation mist for inhalation (Spiriva Respimat) promethazine 25 mg tablet 25 mg PO Q8H PRN PRN nausea 09/09/23 Unknown History ipratropium 0.5 mg-albuterol 3 mg 1 ml inhalation TID PRN PRN 10/29/23 Unknown History (2.5 mg base)/3 mL nebulization wheezing soln clonidine HCl 0.1 mg tablet 0.1 mg PO TID 11/20/23 Unknown History melatonin 5 mg tablet 10 mg PO QHS insomnia 11/20/23 Unknown History metoprolol tartrate 25 mg tablet 25 mg PO BID 11/20/23 Unknown History mometasone-formoterol HFA 200 2 puff inhalation BID 11/20/23 Unknown History mcg-5 mcg/actuation aerosol inhaler (Dulera) naloxone 4 mg/actuation nasal spray 1 spray intranasal Q3M PRN opioid 11/20/23 Unknown History overdose prazosin 5 mg capsule 5 mg PO QHS 11/20/23 Unknown History ropinirole 1 mg tablet 1 mg PO QHS restless legs 11/20/23 Unknown History Allergy/AdvReac Type Severity Reaction Status Date / Time No Known Allergies Allergy Verified 10/28/23 17:34 Surgical History History of open reduction and internal fixation (ORIF) procedure History of cholecystectomy Social History Smoking Status: Former smoker ROS ROS ED Constitutional Constitutional ED: Denies chills, fever(s) or sweats Eyes Eyes: Denies blurry vision or change in vision ENT ENT ED: Denies ear pain or sore throat Cardiovascular Cardiovascular: Denies chest pain, palpitations or racing heartbeat Respiratory/Chest Respiratory/Chest: Denies cough, dyspnea or sputum Gastrointestinal Gastrointestinal: Reports nausea and vomiting; Denies abdominal pain, constipation or diarrhea Genitourinary Genitourinary ED: Denies dysuria, hematuria or urinary frequency Musculoskeletal Musculoskeletal: Denies arthralgias, myalgias or neck pain Integumentary Denies abscess, Abrasions or rash Neurologic Neurologic: Reports headache(s); Denies paresthesias or weakness Psychiatric Psychiatric: Denies anxiety, depression, suicidal ideation or suicidal thoughts Endocrine Endocrinology: Denies polydipsia or polyuria EXAM Physical Exam Const Vital Signs: 11/20/23 17:54 11/20/23 17:54 11/20/23 18:08 Temperature 98.9 F Temperature Source Temporal Pulse Rate 104 H 101 H Respiratory Rate 30 H 18 Respiratory Effort Normal Non-Labored Blood Pressure 176/112 H Blood Pressure Mean 133 Pulse Ox 83 93 Oxygen Delivery Method Room Air Nasal Cannula Nasal Cannula Oxygen Flow Rate (L/min) 2 11/20/23 18:26 11/20/23 18:54 11/20/23 18:56 Temperature 97.4 F L Temperature Source Temporal Pulse Rate 98 71 89 Respiratory Rate 20 H 19 H 19 H Respiratory Effort Blood Pressure 140/82 H 140/82 H Blood Pressure Mean 101 101 Pulse Ox 98 98 Oxygen Delivery Method Nasal Cannula Nasal Cannula Oxygen Flow Rate (L/min) 2 2 11/20/23 19:00 11/20/23 19:00 11/20/23 19:00 Temperature 97.1 F L Temperature Source Temporal Pulse Rate 82 89 Respiratory Rate 19 H 19 H Respiratory Effort Blood Pressure 146/97 H 142/87 H Blood Pressure Mean 113 105 Pulse Ox 98 94 Oxygen Delivery Method Nasal Cannula Nasal Cannula Nasal Cannula Oxygen Flow Rate (L/min) 2 2 2 11/20/23 20:00 Temperature Temperature Source Pulse Rate 78 Respiratory Rate 16 Respiratory Effort Blood Pressure 140/87 H Blood Pressure Mean 104 Pulse Ox 94 Oxygen Delivery Method Nasal Cannula Oxygen Flow Rate (L/min) 2 Positive well nourished and obese General Appearance ED: NAD; Negative for pallor Nutritional Appearance: obese HEENT Reports normocephalic atraumatic Eyes PERRL and EOMs intact bilaterally Neck no lymphadenopathy and supple Resp normal respiratory effort and clear to auscultation bilaterally Auscultation: Negative for rales, rhonchi or wheezes Cardio regular rate and regular rhythm GI non-tender and non-distended Extremity normal to inspection Neuro oriented x3 and CN's II-XII intact bilaterally Sensorium / Orientation: awake and alert Motor Exam: strength 5/5 throughout Psych mental status grossly normal Skin General Skin Exam: Negative for jaundice or pallor MDM MDM MDM Narrative Medical decision making narrative: Patient's initial complaint was headache. On arrival was noted she was hypoxic 83% on room air. She is placed on 2 L nasal cannula and her headache is now improved dramatically. She states she still has some mild nausea as well. She feels much better. Differential includes pneumonia, COPD exacerbation, dehydration, anemia, electrolyte abnormalities, ACS, CHF. CBC will be obtained to assess white blood cell count, hemoglobin, platelets. BMP to assess renal function, electrolytes, glucose. High-sensitivity troponin and EKG to assess for ischemia/dysrhythmia. BNP to assess for CHF. Chest x-ray to rule out pneumonia or CHF. Primary to assess for PE since patient has a history of this. Patient was given a gram of Tylenol and Zofran 4 mg IV. CBC shows normal white blood cell count of 4.4. Hemoglobin 13.7. Platelets are low at 149. Renal function and electrolytes within normal limits. CO2 is elevated at 38.0. High- sensitivity troponin is 4. BNP 160.8. Chest x-ray interpreted by myself shows no acute cardiopulmonary process. Radiologist interprets this and agrees. EKG showed sinus tachycardia at a rate of 101 bpm without sign of ischemic change or dysrhythmia. COVID, RSV, influenza are all negative. Patient was given breathing treatments and Solu-Medrol however she is still hypoxic. Given the hypoxia she will need to be admitted. Discussed with the hospitalist. Impression: 1. Headache 2. Hypoxia Lab Data Attestation: I reviewed the patient's lab results. Labs: Laboratory Results - last 24 hr 11/20/23 18:33 WBC 4.4 RBC 4.68 Hgb 13.7 Hct 42.3 MCV 90.4 MCH 29.3 MCHC 32.4 RDW Std Deviation 39.3 RDW Coeff of [place] 11.9 Plt Count 149 L MPV 9.8 Immature Gran % (Auto) 0.500 Neut % (Auto) 59.9 Lymph % (Auto) 28.6 Humphreys % (Auto) 8.0 Eos % (Auto) 2.5 Baso % (Auto) 0.5 Absolute Neuts (auto) 2.6 Absolute Lymphs (auto) 1.25 Nucleated RBC % 0 D-Dimer Quant (PE/DVT) 0.31 Sodium 141 Potassium 3.8 Chloride 101 Carbon Dioxide 38.0 H Anion Gap 2 L BUN 9 Creatinine 0.55 Est GFR (MDRD) Af Amer 153 Est GFR (MDRD) Non-Af 127 BUN/Creatinine Ratio 16.5 Glucose 103 Calcium 8.8 Troponin I High Sens 4 B-Natriuretic Peptide 160.8 H Radiography Diagnostic Testing: Clinical Impression(s) from Imaging Studies Chest X-Ray 07/24/24 19:15 IMPRESSION: Normal x-ray examination of the chest. Electronically Signed: Сергей Jacques MD at 20:32 EDT , Discharge Plan Triage Chief Complaint: Headache Other Complaint: Shortness of Breath ED Provider: Shorty Edmond Dx/Rx/DC Orders Prescriptions: No Action albuterol sulfate 90 mcg/actuation HFA aerosol inhaler 2 puff INHALATION Q4H PRN (Reason: sob wheezying) Patient Comments: INHALE 2 PUFFS BY MOUTH EVERY 4 HOURS NEEDED FOR SHORTNESS OF BREATH OR WHEEZING FOR UP TO 30 DAYS buprenorphine-naloxone 8-2 mg film 1 film sublingual Q24H Patient Comments: PLACE 1 STRIP UNDER THE TONGUE THREE TIMES DAILY FOR 28 DAYS lisinopril 40 mg tablet 40 mg PO DAILY Patient Comments: TAKE 1 TABLET BY MOUTH ONCE DAILY bupropion HCl 150 mg tablet extended release 24 hr 150 mg PO DAILY Rx Instructions: TAKE W/ 300 MG TABLET FOR A TOTAL OF 450 MG ONCE DAILY bupropion HCl 300 mg tablet extended release 24 hr 300 mg PO DAILY Rx Instructions: TAKE W/ 150 MG TABLET FOR A TOTAL OF 450 MG ONCE DAILY gabapentin 800 mg tablet 800 mg PO 4X/DAY Spiriva Respimat 1.25 mcg/actuation mist 1 puff INHALATION QPM promethazine 25 mg tablet 25 mg PO Q8H PRN PRN (Reason: nausea) ipratropium-albuterol 0.5 mg-3 mg(2.5 mg base)/3 mL solution for nebulization 1 ml inhalation TID PRN PRN (Reason: wheezing) clonidine HCl 0.1 mg tablet 0.1 mg PO TID metoprolol tartrate 25 mg tablet 25 mg PO BID melatonin 5 mg tablet 10 mg PO QHS Dulera 200-5 mcg/actuation HFA aerosol inhaler 2 puff inhalation BID naloxone 4 mg/actuation spray,non-aerosol 1 spray INTRANASAL Q3M PRN (Reason: opioid overdose) ropinirole 1 mg tablet 1 mg PO QHS prazosin 5 mg capsule 5 mg PO QHS Primary Care Provider: Care Physician,No Primary Referrals: Care Physician,No Primary [Primary Care Provider] - Print Language: Colombian
[2023-11-20] MEDS: Acetaminophen 500 MG Tablet 1000 MG PO (18:17)
[2023-11-20] MEDS: Ipratropium/Albuterol Sulfate 3 ML AMPUL.NEB INHALATION (18:25)
[2023-11-20] MEDS: Albuterol 2.5 MG/3 ML VIAL.NEB. INHALATION (18:25)
[2023-11-20 18:41] LABS: Absolute Lymphocyte Count 1.25 X10^3/uL (0.83-4.51); Absolute Neutrophil Count 2.6 X10^3/uL (2.0-7.7); Basophil# 0.02 X10^3/uL; Basophil% 0.5 % (0-1); Eosinophil# 0.11 X10^3/uL; Eosinophils% 2.5 % (0-5); Hematocrit 42.3 % (37-47); Hemoglobin 13.7 g/dL (12.0-15.0); Lymphocyte # 1.25 X10^3/ul (0.83-4.51); Lymphocyte % 28.6 % (19-41); Mean Corp Hgb Conc 32.4 g/dL (32-36); Mean Corpuscular Hgb 29.3 pg (27.0-32.0); Mean Corpuscular Volume 90.4 fL (81-99); Mean Platelet Vol. 9.8 fl (6.2-12.0); Monocyte# 0.35 X10^3/uL; NRBC Flagged by Analyzer 0 % (0-5); Neutrophil # 2.62 X10^3/uL (2.7-7.7); Neutrophil % 59.9 % (47-70); Platelet Count 149 K/mm3 (150-450); RBC Distribution Width CV 11.9 % (11.6-14.6); RBC Distribution Width SD 39.3 fl (35.1-43.9); Red Blood Count 4.68 M/mm3 (4.2-5.4); White Blood Count 4.4 K/mm3 (4.4-11.0)
[2023-11-20] MEDS: Ondansetron 4 MG/2 ML Vial IV (18:46)
[2023-11-20] MEDS: MethylPREDNISolone 125 MG/2 ML Vial IV (18:46)
[2023-11-20 18:59] LABS: Anion Gap 2 (5-15); BUN 9 mg/dL (7-18); BUN/Creat Ratio 16.5 RATIO (10-20); Calcium,Total 8.8 mg/dL (8.5-10.1); Chloride 101 mmol/L (98-107); Creatinine, Serum 0.55 mg/dL (0.55-1.02); EST Glomerular Filtration Rate 127 mL/min (>60); Est Glom Filt Rate - Afr Amer 153 mL/min (>60); Glucose 103 mg/dL (74-106); Potassium 3.8 mmol/L (3.5-5.1); Sodium Level 141 mmol/L (136-145); Troponin-I HS 4 pg/mL (3.0-54.0)
[2023-11-20 19:03] LABS: D-Dimer Quantitative (DVT/PE) 0.31 FEU/ug/m (0.27-0.49)
[2023-11-20 19:07] LABS: BNP,B-Type NATRIURETIC PEPTIDE 160.8 pg/mL (0-100)
--- NOTE | 2023-11-20 19:15 | RAD_ITS ---
STUDY: X-RAY CHEST REASON FOR EXAM: Female, 48 years old. Chest pain TECHNIQUE: Single AP portable view of the chest. COMPARISON: October 15, 2023 FINDINGS: The lungs are clear and expanded. There is no demonstrated pleural abnormality. Normal size heart. Normal mediastinum and sukhwinder. Normal visualized pulmonary arteries. Normal visualized aortic arch and descending thoracic aorta. Normal visualized thoracic spine. Normal visualized ribs, clavicles, and shoulders. There is no demonstrated abnormality of the visualized soft tissue structures of the upper abdomen. RAD/Chest 1 View (Portable) IMPRESSION: Normal x-ray examination of the chest. Electronically Signed: Сергей Jacques MD at 20:32 EDT ,
[2023-11-20] MEDS: Ibuprofen 600 MG Tablet PO (20:46)
--- NOTE | 2023-11-20 20:52 | HP.PCM.HOS_ITS ---
HPI - General General Date of Admission: 11/20/23 Date of Service: 11/20/23 Chief Complaint: Persistent headache with nausea/vomiting HPI Narrative URSULA PINA, is a 48 F who presented to [facility] ED on 11/20/2023 with a persistent headache for 3 days and intermittent nausea with vomiting. Saw patient at bedside in the ED. Patient was sitting up comfortably in bed, conversing normally, in no acute distress. On arrival to the ED, patient was found to be satting in the low 80s on room air. She was placed on low-flow nasal cannula with improvement in oxygen saturations and she had significant improvement in her headache and nausea as well. Patient currently states she has a very mild headache but continues to feel improved. Patient has history of COPD and is on several home inhalers, states she has been using these as prescribed. She denies any shortness of breath, cough, sputum production, wheezing or any other respiratory symptoms recently. Has had a few small COPD exacerbations this year and feels much better now than she did during those exacerbations. States she quit smoking several months ago. Denies any fevers or chills. No other acute concerns at this time. Vitals in ED notable for mild hypertension, O2 sats in the mid to high 90s on 2 L nasal cannula, otherwise unremarkable. Labs notable for bicarb 38, BNP 160, otherwise unremarkable. Chest x-ray was unremarkable. [facility] Medical History (Updated 11/21/23 @ 02:[address] Zackery Bauer, DO) Morbid obesity with BMI of 60.0-69.9, adult Depression Fentanyl use disorder, mild, in sustained remission, abuse Pulmonary emboli Former smoker COPD (chronic obstructive pulmonary disease) HTN (hypertension) Home Medications ?Medication ?Instructions ?Recorded ?Last Taken ?Type albuterol sulfate 90 mcg/actuation 2 puff inhalation Q4H PRN sob 05/11/23 05/11/23 History aerosol inhaler wheezying buprenorphine 8 mg-naloxone 2 mg 1 film sublingual Q24H drug 05/11/23 Unknown History sublingual film addiction lisinopril 40 mg tablet 40 mg PO DAILY bp 05/11/23 Unknown History bupropion HCl 150 mg 24 hr tablet, 150 mg PO DAILY depression 09/08/23 Unknown History extended release bupropion HCl 300 mg 24 hr tablet, 300 mg PO DAILY depression 09/08/23 Unknown History extended release gabapentin 800 mg tablet 800 mg PO 4X/DAY pain 09/08/23 Unknown History tiotropium bromide 1.25 1 puff inhalation QPM ask pcp 09/08/23 Unknown History mcg/actuation mist for inhalation (Spiriva Respimat) promethazine 25 mg tablet 25 mg PO Q8H PRN PRN nausea 09/09/23 Unknown History ipratropium 0.5 mg-albuterol 3 mg 1 ml inhalation TID PRN PRN 10/29/23 Unknown History (2.5 mg base)/3 mL nebulization wheezing soln clonidine HCl 0.1 mg tablet 0.1 mg PO TID 11/20/23 Unknown History melatonin 5 mg tablet 10 mg PO QHS insomnia 11/20/23 Unknown History metoprolol tartrate 25 mg tablet 25 mg PO BID 11/20/23 Unknown History mometasone-formoterol HFA 200 2 puff inhalation BID 11/20/23 Unknown History mcg-5 mcg/actuation aerosol inhaler (Dulera) naloxone 4 mg/actuation nasal spray 1 spray intranasal Q3M PRN opioid 11/20/23 Unknown History overdose prazosin 5 mg capsule 5 mg PO QHS 11/20/23 Unknown History ropinirole 1 mg tablet 1 mg PO QHS restless legs 11/20/23 Unknown History Allergy/AdvReac Type Severity Reaction Status Date / Time No Known Allergies Allergy Verified 10/28/23 17:34 Surgical History History of open reduction and internal fixation (ORIF) procedure History of cholecystectomy Social History Smoking Status: Former smoker ROS Constitutional Constitutional: Denies chills, fatigue, fever(s), malaise or weakness Eyes Eyes: Denies change in vision Cardiovascular Cardiovascular: Denies chest pain, dyspnea on exertion, edema or palpitations Respiratory/Chest Respiratory/Chest: Denies cough, productive cough, shortness of breath at rest or wheezing Gastrointestinal Gastrointestinal: Reports nausea; Denies abdominal pain, constipation, diarrhea or vomiting Neurologic Neurologic: Reports headache(s); Denies dizziness or focal weakness Vital Signs Vital Signs Vital Signs: 11/20/23 17:54 11/20/23 17:54 11/20/23 18:08 Temperature 98.9 F Temperature Source Temporal Pulse Rate 104 H 101 H Respiratory Rate 30 H 18 Respiratory Effort Normal Non-Labored Blood Pressure 176/112 H Blood Pressure Mean 133 Pulse Ox 83 93 Oxygen Delivery Method Room Air Nasal Cannula Nasal Cannula Oxygen Flow Rate (L/min) 2 11/20/23 18:26 11/20/23 18:54 11/20/23 18:56 Temperature 97.4 F L Temperature Source Temporal Pulse Rate 98 71 89 Respiratory Rate 20 H 19 H 19 H Respiratory Effort Blood Pressure 140/82 H 140/82 H Blood Pressure Mean 101 101 Pulse Ox 98 98 Oxygen Delivery Method Nasal Cannula Nasal Cannula Oxygen Flow Rate (L/min) 2 2 11/20/23 19:00 11/20/23 19:00 11/20/23 19:00 Temperature 97.1 F L Temperature Source Temporal Pulse Rate 82 89 Respiratory Rate 19 H 19 H Respiratory Effort Blood Pressure 146/97 H 142/87 H Blood Pressure Mean 113 105 Pulse Ox 98 94 Oxygen Delivery Method Nasal Cannula Nasal Cannula Nasal Cannula Oxygen Flow Rate (L/min) 2 2 2 11/20/23 20:00 Temperature Temperature Source Pulse Rate 78 Respiratory Rate 16 Respiratory Effort Blood Pressure 140/87 H Blood Pressure Mean 104 Pulse Ox 94 Oxygen Delivery Method Nasal Cannula Oxygen Flow Rate (L/min) 2 Weight Weight: 196.9 kg Body Mass Index (BMI) 60.5 Physical Exam Const alert, oriented x3 and no apparent distress Constitutional Narrative: Pleasant middle-age female, morbidly obese, sitting up comfortably in bed, conversing normally, no acute distress. General Appearance: cooperative and comfortable HEENT normocephalic, head/scalp atraumatic, hearing grossly normal bilaterally, nasal mucous membranes and turbinates normal and moist oral mucous membranes Eyes PERRL, EOMs intact bilaterally and conjunctivae normal Neck full ROM Chest inspection of chest normal Resp normal respiratory effort and no use of accessory muscles Resp Narrative: Breathing comfortably on 2 L nasal cannula. Diminished breath sounds throughout bilaterally, suspect due to body habitus. No wheezing or crackles noted. Cardio regular rate, regular rhythm, no murmurs and peripheral pulses 2+ throughout GI normal to inspection, nondistended, normoactive bowel sounds, soft to palpation, non-tender and non-distended Back/Spine normal ROM Extremity normal to inspection, full ROM and no pedal edema Skin no rashes or lesions noted Neuro moves all extremities and no focal motor deficits Speech: speech normal Psych mental status grossly normal Results Lab / Micro Data 11/20/23 18:33 11/20/23 18:33 Labs: Laboratory Results - last 24 hr 11/20/23 18:33: WBC 4.4, RBC 4.68, Hgb 13.7, Hct 42.3, MCV 90.4, MCH 29.3, MCHC 32.4, RDW Std Deviation 39.3, RDW Coeff of [place] 11.9, Plt Count 149 L, MPV 9.8, Immature Gran % (Auto) 0.500, Neut % (Auto) 59.9, Lymph % (Auto) 28.6, [place] % (Auto) 8.0, Eos % (Auto) 2.5, Baso % (Auto) 0.5, Absolute Neuts (auto) 2.6, Absolute Lymphs (auto) 1.25, Nucleated RBC % 0, D-Dimer Quant (PE/DVT) 0.31, Sodium 141, Potassium 3.8, Chloride 101, Carbon Dioxide 38.0 H, Anion Gap 2 L, BUN 9, Creatinine 0.55, Est GFR (MDRD) Af Amer 153, Est GFR (MDRD) Non-Af 127, BUN/Creatinine Ratio 16.5, Glucose 103, Calcium 8.8, Troponin I High Sens 4, B- Natriuretic Peptide 160.8 H Micro: Microbiology 11/20/23 19:09 Mucosa - Nose SARS-CoV-2, Influenza & RSV (PCR) - Final Imaging Radiology Impression Chest X-Ray 11/20/23 19:15 IMPRESSION: Normal x-ray examination of the chest. Electronically Signed: Сергей Jacques MD at 20:32 EDT , Assessment & Plan Assessment/Plan (1) Hypoxia: (2) COPD (chronic obstructive pulmonary disease): (3) Morbid obesity with BMI of 60.0-69.9, adult: PLAN: Plan Patient is a 48-year-old female who presented to [facility] ED on 11/20/2023 with persistent headache and nausea/vomiting. 1. Suspected chronic hypoxia in setting of COPD and morbid obesity ? Admit under observation status to PCU. Suspect patient has chronic hypoxia at baseline given very elevated bicarb of 38; likely mixed obstructive and restrictive etiologies in setting of COPD and morbid obesity. COVID/flu/RSV negative. Does not appear to be in acute COPD exacerbation, will hold on any steroids or antibiotics. Okay to continue home inhalers. Home O2 evaluation ordered for tomorrow morning. Recommend establishing with outpatient pulmonology for formal PFTs in the near future. 2. Headache with nausea/vomiting, improving ? Significantly improved with starting supplemental oxygen, suspect secondary to hypoxia. Treatment as above. 3. Recent suicidal ideation with history of depression and PTSD ? Recent ED visit on 10/27 for suicidal ideation. Noted that she lost her fianc? in July to a drug overdose and was wanting to kill herself with sleeping pills. Crisis followed and patient was transferred over to [facility] for inpatient stay. Currently denies any suicidal ideation and feels like her depression symptoms are better controlled. Continue home bupropion, prazosin and melatonin at night. Chronic medical conditions: ? Morbid obesity: BMI 59 on admit. Complicates hospital course, care and prognosis. ? Suspected VIET: No formal diagnosis but highly suspected based on body habitus. Recommend outpatient sleep study shortly after discharge. ? History of opiate abuse: Follows with [facility]. Continue home Suboxone. ? Hypertension: Stable. Continue home Lopressor, lisinopril and clonidine. ? Neuropathy/restless leg syndrome: Continue home gabapentin and ropinirole. ? Former tobacco abuse: Encouraged continued cessation. DVT prophylaxis: Lovenox twice daily CODE STATUS: Full code, verified Expected disposition: Home, 1 to 2 days Total clinical time spent by myself addressing the patient's medical issues, reviewing all the data, and collaborating with patient's care team: 55 minutes. Charges/Coding Visit Charges Inpatient E&M: 13345 Init Hosp L2
--- NOTE | 2023-11-20 22:48 | ECHOCS_ITS ---
Reason For Study: CHF Procedure This was a 2D Doppler, Color Flow transthoracic echocardiogram. The study was technically difficult. Due to body habitus. Exam performed portable in patient room. Left Ventricle Normal LV size. The estimated ejection fraction is 60 %. No regional wall motion abnormalities noted. Right Ventricle Normal RV size. Normal systolic function. Atria The left and right atria are normal. No doppler evidence for ASD. Mitral Valve There is no mitral valve stenosis. No mitral valve insufficiency. Tricuspid Valve There is no tricuspid stenosis. Trivial tricuspid valve insufficiency. Unable to estimate RV systolic pressure due to insufficient tricuspid regurgitant envelope. Aortic Valve Trisinus/trileaflet aortic valve. There is no aortic stenosis. No aortic valve insufficiency. Pulmonic Valve There is no pulmonic valvular stenosis. No pulmonic valve insufficiency. Great Vessels Normal aortic root. Pericardium/Pleural No pericardial effusion. Medication Diluted definity 9.0ml given slow IV push to enhance endocardial definition. MMode/2D Measurements & Calculations LVIDd: 6.1 cm IVSd: 1.4 cm Ao root diam: 3.2 cm LVIDs: 3.8 cm LVPWd: 1.3 cm LA dimension: 4.4 cm FS: 37.2 % LAV(MOD-sp4): 85.8 ml LVAd ap4: 33.2 cm2 LVAd ap2: 21.9 cm2 LVLd ap4: 7.1 cm LVLd ap2: 7.1 cm EDV(MOD-sp4): 126.4 ml EDV(MOD-sp2): 54.6 ml EDV(sp4-el): 132.3 ml EDV(sp2-el): 57.2 ml LVAs ap4: 18.1 cm2 LVAs ap2: 12.5 cm2 LVLs ap4: 6.6 cm LVLs ap2: 6.1 cm ESV(MOD-sp4): 41.3 ml ESV(MOD-sp2): 22.4 ml ESV(sp4-el): 42.1 ml ESV(sp2-el): 21.8 ml EF(MOD-sp4): 67.3 % EF(MOD-sp2): 59.0 % EF(sp4-el): 68.2 % SV(MOD-sp4): 85.0 ml SV(MOD-sp2): 32.2 ml SV(sp4-el): 90.3 ml LA A4 area: 24.6 cm2 RA A4 area: 17.9 cm2 Time Measurements MV dec time: 0.16 sec Doppler Measurements & Calculations MV E max sebastian: 58.3 cm/sec Lat Peak E' Sebastian: 6.6 cm/sec Med Peak E' Sebastian: 7.3 cm/sec MV A max sebastian: 56.0 cm/sec E/E' lat: 8.9 E/E' med: 8.0 MV E/A: 1.0 MV V2 max: 92.3 cm/sec MV P1/2t max sebastian: 90.8 cm/sec Ao V2 max: 152.5 cm/sec MV max P.4 mmHg MV P1/2t: 62.4 msec Ao max P.3 mmHg MV V2 mean: 57.6 cm/sec Ao V2 mean: 104.1 cm/sec MV mean P.5 mmHg MV dec slope: 426.0 cm/sec2 Ao mean P.9 mmHg MV V2 VTI: 25.6 cm MVA(P1/2t): 3.5 cm2 Ao V2 VTI: 29.1 cm AV (velocity ratio): 0.84 LV V1 max: 118.7 cm/sec PA V2 max: 95.8 cm/sec TR max sebastian: 235.2 cm/sec LV V1 max P.6 mmHg PA max PG (full): 1.5 mmHg TR max P.1 mmHg LV V1 mean P.6 mmHg LV V1 mean: 89.7 cm/sec LV V1 VTI: 24.6 cm ECHO/Echo Complete W/ Contrast Interpretation Summary The estimated ejection fraction is 60 %. Ordering Physician: Zackery Bauer Referring Physician: MATHEW PCP Performed By: Lilia Cano, LUCHO, RVT
[2023-11-20] MEDS: Pramipexole Di-HCl 0.5 MG Tablet PO (23:46)
[2023-11-20] MEDS: Doxazosin 4 MG Tablet PO (23:47)
[2023-11-20] MEDS: MELATONIN 10 MG TABLET PO (23:47)
[2023-11-20] MEDS: cloNIDine HCl 0.1 MG Tablet PO (23:47)
[2023-11-20] MEDS: Metoprolol Tartrate 25 MG Tablet PO (23:47)
[2023-11-20] MEDS: 0.9% Saline Lock 10 ML Syringe IV (23:48)
[2023-11-20] MEDS: Gabapentin 600 MG Tablet PO (23:51)
[2023-11-21] VITALS (7 sets, daily range): BP systolic 148–157; BP diastolic 78–99; PULSE 76–96; RESP 18–20; TEMP 36.4–36.9; O2SAT 84–96
[2023-11-21] MEDS: Senna Tablet 1 TABLET PO (01:23)
[2023-11-21 05:44] LABS: Hematocrit 44.4 % (37-47); Hemoglobin 14.2 g/dL (12.0-15.0); Mean Corpuscular Hgb 28.6 pg (27.0-32.0); Mean Corpuscular Volume 89.5 fL (81-99); Mean Platelet Vol. 9.9 fl (6.2-12.0); Platelet Count 169 K/mm3 (150-450); RBC Distribution Width CV 11.7 % (11.6-14.6); RBC Distribution Width SD 37.5 fl (35.1-43.9); Red Blood Count 4.96 M/mm3 (4.2-5.4)
[2023-11-21] MEDS: cloNIDine HCl 0.1 MG Tablet PO (06:07)
[2023-11-21 06:14] LABS: Anion Gap 1 (5-15); BUN 10 mg/dL (7-18); Calcium,Total 9.3 mg/dL (8.5-10.1); Chloride 101 mmol/L (98-107); Creatinine, Serum 0.52 mg/dL (0.55-1.02); EST Glomerular Filtration Rate 133 mL/min (>60); Est Glom Filt Rate - Afr Amer 160 mL/min (>60); Estimated Creatinine Clearance 252.52 ml/min; Glucose 173 mg/dL (74-106); Potassium 4.7 mmol/L (3.5-5.1); Sodium Level 137 mmol/L (136-145)
[2023-11-21] MEDS: Ipratropium/Albuterol Sulfate 3 ML AMPUL.NEB INHALATION (07:21)
[2023-11-21] MEDS: Budesonide Respules 0.5 MG/2 ML AMPUL.NEB. INHALATION (07:22)
[2023-11-21] MEDS: buPROPion (XL) 300 MG TABLET.XL PO (09:33)
[2023-11-21] MEDS: Lisinopril 40 MG Tablet PO (09:33)
[2023-11-21] MEDS: Enoxaparin 40 MG/0.4 ML Syringe SC (09:33)
[2023-11-21] MEDS: Gabapentin 600 MG Tablet PO (09:33)
[2023-11-21] MEDS: buPROPion (XL) 150 MG TABLET.XL PO (09:33)
--- NOTE | 2023-11-21 09:36 | PCM.PN.HOSP ---
Reason for Visit Reason for Visit: Diagnoses Morbid (severe) obesity due to excess calories (11/20/23) Chronic obstructive pulmonary disease, unspecified (11/20/23) Hypoxemia (11/20/23) Body mass index [BMI] 60.0-69.9, adult (11/20/23) Subjective Subjective Patient is a 48-year-old female who presented to [facility] ED on 11/20/2023 with persistent headache and nausea/vomiting. Objective Data Objective Data Vital Signs: Vital Signs Temp Pulse Resp BP Pulse Ox O2 Del Method O2 Flow Rate 97.5 F L 76 18 151/78 H 85 Room Air 2 11/21/23 06:03 11/21/23 06:03 11/21/23 06:03 11/21/23 06:03 11/21/23 08:05 11/21/23 08:05 11/21/23 08:05 FiO2 91 11/21/23 08:05 Oxygen Flow Rate (L/min) 2 Oxygen Delivery Method Room Air Weight: 192.8 kg Body Mass Index (BMI) 59.3 Intake & Output: Intake and Output for Last 24 Hours 11/19/23 11/20/23 11/21/23 23:59 23:59 23:59 Intake Total 400 / 400 Balance 400 / 400 Lab / Micro Data 11/21/23 05:30 11/21/23 05:30 Labs: Laboratory Results - last 24 hr 11/20/23 18:33: WBC 4.4, RBC 4.68, Hgb 13.7, Hct 42.3, MCV 90.4, MCH 29.3, MCHC 32.4, RDW Std Deviation 39.3, RDW Coeff of Shelby 11.9, Plt Count 149 L, MPV 9.8, Immature Gran % (Auto) 0.500, Neut % (Auto) 59.9, Lymph % (Auto) 28.6, [place] % (Auto) 8.0, Eos % (Auto) 2.5, Baso % (Auto) 0.5, Absolute Neuts (auto) 2.6, Absolute Lymphs (auto) 1.25, Nucleated RBC % 0, D-Dimer Quant (PE/DVT) 0.31, Sodium 141, Potassium 3.8, Chloride 101, Carbon Dioxide 38.0 H, Anion Gap 2 L, BUN 9, Creatinine 0.55, Est GFR (MDRD) Af Amer 153, Est GFR (MDRD) Non-Af 127, BUN/Creatinine Ratio 16.5, Glucose 103, Calcium 8.8, Troponin I High Sens 4, B-Natriuretic Peptide 160.8 H 11/21/23 05:30: WBC 5.0, RBC 4.96, Hgb 14.2, Hct 44.4, MCV 89.5, MCH 28.6, MCHC 32.0, RDW Std Deviation 37.5, RDW Coeff of Shelby 11.7, Plt Count 169, MPV 9.9, Sodium 137, Potassium 4.7, Chloride 101, Carbon Dioxide 35.0 H, Anion Gap 1 L, BUN 10, Creatinine 0.52 L, Estim Creat Clear Calc 252.52, Est GFR (MDRD) Af Amer 160, Est GFR (MDRD) Non-Af 133, BUN/Creatinine Ratio 19.0, Glucose 173 H, Calcium 9.3 Micro: Microbiology 11/20/23 19:09 Mucosa - Nose SARS-CoV-2, Influenza & RSV (PCR) - Final Radiography Diagnostic Testing: Radiology Impression Chest X-Ray 11/20/23 19:15 IMPRESSION: Normal x-ray examination of the chest. Electronically Signed: Сергей Jacques MD at 20:32 EDT , Physical Exam Narrative GENERAL: cooperative HEENT: Atraumatic; normocephalic EYES; Anicteric, Normal Conjunctiva NECK; supple, normal thyroid, RESPIRATORY: Diminished to auscultation CARDIOVASCULAR: Regular S1 S2, GI: soft, normoactive bowel sounds, : No Renal angle tenderness; EXTREMITIES: No edema, no clubbing, MUSCULOSKELETAL: no muscle wasting NEURO: Awake; no lateralizing signs. SKIN: No Rash PSYCH; Flat affect Assessment & Plan Assessment/Plan (1) Hypoxia: (2) COPD (chronic obstructive pulmonary disease): (3) Morbid obesity with BMI of 60.0-69.9, adult: PLAN: Plan Patient is a 48-year-old female who presented to [facility] ED on 11/20/2023 with persistent headache and nausea/vomiting. 1. Acute migrainous attack ? Patient admitted to monitored with symptomatic treatment initiated 2. Acute hypoxia ? Due to combination of suspected COPD with acute exacerbation as well as obesity hypoventilation syndrome. Patient was placed on supplemental oxygen echo ordered plan is for patient to be assessed for home oxygen prior to discharge 3. Class III obesity with BMI of 59.3 ? Complicating care weight loss advised 4. Hypertension - Blood pressure controlled, home medications continued with dose adjustment as needed 5. History of previous opioid dependence ? Currently on Suboxone plan is to continue at home dose 6. Depression with recent suicidal ideation and PTSD ? Did continue patient home meds 7. Restless leg syndrome ? Patient is on ropinirole 8. Peripheral neuropathy ? Patient is on gabapentin did continue 9. DVT prophylaxis ? Bilateral SCDs
--- NOTE | 2023-11-21 09:42 | CASEMGMT ---
Per admission questions patient does not have a Healthcare Power of Supervisor [place] [facility] or Healthcare Living Will and patient is not interested in documents. 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
[2023-11-21] MEDS: Metoprolol Tartrate 25 MG Tablet PO (10:22)
[2023-11-21] MEDS: Acetaminophen 325 MG Tablet 650 MG PO (10:22)
--- NOTE | 2023-11-21 11:08 | PCM.DC.SUM ---
Providers Date of Admission: 11/20/23 Date of Discharge: 11/21/23 Primary Care Physician: No Primary Care Phys Reason For Visit: HYPOXIA, MORBID OBESITY Diagnosis Discharge Diagnosis (1) Hypoxia: Status: Acute Code(s): R09.02 - Hypoxemia (2) COPD (chronic obstructive pulmonary disease): Status: Chronic Code(s): J44.9 - Chronic obstructive pulmonary disease, unspecified (3) Morbid obesity with BMI of 60.0-69.9, adult: Status: Acute Code(s): E66.01 - Morbid (severe) obesity due to excess calories; Z68.44 - Body mass index [BMI] 60.0-69.9, adult Plan Patient is a 48-year-old female who presented to [facility] ED on 11/20/2023 with persistent headache and nausea/vomiting. 1. Acute migrainous attack ? Patient admitted to monitored with symptomatic treatment initiated 2. Acute hypoxia ? Due to combination of suspected COPD with acute exacerbation as well as obesity hypoventilation syndrome. Patient was placed on supplemental oxygen echo ordered plan is for patient to be assessed for home oxygen prior to discharge ? I have reviewed the oxygen testing, and this patient qualifies for the home equipment and portability. The patient is mobile in the home and the community. 3. Class III obesity with BMI of 59.3 ? Complicating care weight loss advised 4. Hypertension - Blood pressure controlled, home medications continued with dose adjustment as needed 5. History of previous opioid dependence ? Currently on Suboxone plan is to continue at home dose 6. Depression with recent suicidal ideation and PTSD ? Did continue patient home meds 7. Restless leg syndrome ? Patient is on ropinirole 8. Peripheral neuropathy ? Patient is on gabapentin did continue 9. DVT prophylaxis ? Bilateral SCDs Medications at Discharge Home Medications albuterol sulfate 90 mcg/actuation aerosol inhaler 2 puff inhalation Q4H PRN sob wheezying 05/11/23 buprenorphine 8 mg-naloxone 2 mg sublingual film 1 film sublingual TID drug addiction 05/11/23 lisinopril 40 mg tablet 40 mg PO DAILY bp 05/11/23 bupropion HCl 150 mg 24 hr tablet, extended release 150 mg PO DAILY depression 09/08/23 bupropion HCl 300 mg 24 hr tablet, extended release 300 mg PO DAILY depression 09/08/23 gabapentin 800 mg tablet 800 mg PO 4X/DAY pain 09/08/23 tiotropium bromide 1.25 mcg/actuation mist for inhalation (Spiriva Respimat) 1 puff inhalation QPM ask pcp 09/08/23 promethazine 25 mg tablet 25 mg PO Q8H PRN PRN nausea 09/09/23 ipratropium 0.5 mg-albuterol 3 mg (2.5 mg base)/3 mL nebulization soln 1 ml inhalation TID PRN PRN wheezing 10/29/23 clonidine HCl 0.1 mg tablet 0.1 mg PO TID 11/20/23 melatonin 5 mg tablet 10 mg PO QHS insomnia 11/20/23 metoprolol tartrate 25 mg tablet 25 mg PO BID 11/20/23 mometasone-formoterol HFA 200 mcg-5 mcg/actuation aerosol inhaler (Dulera) 2 puff inhalation BID 11/20/23 naloxone 4 mg/actuation nasal spray 1 spray intranasal Q3M PRN opioid overdose 11/20/23 prazosin 5 mg capsule 5 mg PO QHS 11/20/23 ropinirole 1 mg tablet 1 mg PO QHS restless legs 11/20/23 Hospital Course Summary of Care Provided Minutes Spent on Discharge: 32 Physical Exam Narrative GENERAL: cooperative HEENT: Atraumatic; normocephalic EYES; Anicteric, Normal Conjunctiva NECK; supple, normal thyroid, RESPIRATORY: Diminished to auscultation CARDIOVASCULAR: Regular S1 S2, GI: soft, normoactive bowel sounds, : No Renal angle tenderness; EXTREMITIES: No edema, no clubbing, MUSCULOSKELETAL: no muscle wasting NEURO: Awake; no lateralizing signs. SKIN: No Rash PSYCH; Flat affect Weight / BMI Weight Weight: 192.8 kg Body Mass Index (BMI) 59.3 ABG / Lab / Microbiology Data 11/21/23 05:30 11/21/23 05:30 Laboratory: Laboratory Results - last 24 hr 11/20/23 18:33: WBC 4.4, RBC 4.68, Hgb 13.7, Hct 42.3, MCV 90.4, MCH 29.3, MCHC 32.4, RDW Std Deviation 39.3, RDW Coeff of Shelby 11.9, Plt Count 149 L, MPV 9.8, Immature Gran % (Auto) 0.500, Neut % (Auto) 59.9, Lymph % (Auto) 28.6, [place] % (Auto) 8.0, Eos % (Auto) 2.5, Baso % (Auto) 0.5, Absolute Neuts (auto) 2.6, Absolute Lymphs (auto) 1.25, Nucleated RBC % 0, D-Dimer Quant (PE/DVT) 0.31, Sodium 141, Potassium 3.8, Chloride 101, Carbon Dioxide 38.0 H, Anion Gap 2 L, BUN 9, Creatinine 0.55, Est GFR (MDRD) Af Amer 153, Est GFR (MDRD) Non-Af 127, BUN/Creatinine Ratio 16.5, Glucose 103, Calcium 8.8, Troponin I High Sens 4, B-Natriuretic Peptide 160.8 H 11/21/23 05:30: WBC 5.0, RBC 4.96, Hgb 14.2, Hct 44.4, MCV 89.5, MCH 28.6, MCHC 32.0, RDW Std Deviation 37.5, RDW Coeff of Shelby 11.7, Plt Count 169, MPV 9.9, Sodium 137, Potassium 4.7, Chloride 101, Carbon Dioxide 35.0 H, Anion Gap 1 L, BUN 10, Creatinine 0.52 L, Estim Creat Clear Calc 252.52, Est GFR (MDRD) Af Amer 160, Est GFR (MDRD) Non-Af 133, BUN/Creatinine Ratio 19.0, Glucose 173 H, Calcium 9.3 Microbiology: Microbiology 11/20/23 19:09 Mucosa - Nose SARS-CoV-2, Influenza & RSV (PCR) - Final Radiography Diagnostic Testing: Radiology Impression Chest X-Ray 11/20/23 19:15 IMPRESSION: Normal x-ray examination of the chest. Electronically Signed: Сергей Jacques MD at 20:32 EDT , D/C Instructions Discharge Diet: No restrictions Discharge Activity: Return to Normal Activity Call your doctor if you observe: Fever of 101 or Higher, Shortness of breath, Fainting spells and Chest pain Meaningful Use Info Meaningful Use Meaningful Use Diagnoses (Choose all that apply): None applicable Ischemic Stroke Statin Dosing Therapy Reference: STATIN DOSE THERAPY REFERENCE: * Patients > 75 years receive moderate or high dose statin therapy. * Patients 75 years or YOUNGER should receive HIGH intensity statin dose unless contraindicated. You will be required to document reason for non-treatment if statin daily dose does not meet guidelines. HIGH DOSE STATIN THERAPY DAILY Atorvastatin > than or = to 40 mg Rosuvastatin > than or = to 20 mg Amlodipine + Atorvastatin > than or = to 2.5/40 mg Ezetimibe + Simvastatin 10/80 mg Simvastatin 80mg Discharge Plan Admission Admit Date/Time: 11/20/23 20:59 Attending Provider: Florin Woody Primary Care Provider: Care Physician,No Primary Consulting Providers: Zackery Bauer Discharge Orders/Prescriptions Prescriptions: No Action albuterol sulfate 90 mcg/actuation HFA aerosol inhaler 2 puff INHALATION Q4H PRN (Reason: sob wheezying) Patient Comments: INHALE 2 PUFFS BY MOUTH EVERY 4 HOURS NEEDED FOR SHORTNESS OF BREATH OR WHEEZING FOR UP TO 30 DAYS buprenorphine-naloxone 8-2 mg film 1 film sublingual TID Patient Comments: PLACE 1 STRIP UNDER THE TONGUE THREE TIMES DAILY FOR 28 DAYS lisinopril 40 mg tablet 40 mg PO DAILY Patient Comments: TAKE 1 TABLET BY MOUTH ONCE DAILY bupropion HCl 150 mg tablet extended release 24 hr 150 mg PO DAILY Rx Instructions: TAKE W/ 300 MG TABLET FOR A TOTAL OF 450 MG ONCE DAILY bupropion HCl 300 mg tablet extended release 24 hr 300 mg PO DAILY Rx Instructions: TAKE W/ 150 MG TABLET FOR A TOTAL OF 450 MG ONCE DAILY gabapentin 800 mg tablet 800 mg PO 4X/DAY Spiriva Respimat 1.25 mcg/actuation mist 1 puff INHALATION QPM promethazine 25 mg tablet 25 mg PO Q8H PRN PRN (Reason: nausea) ipratropium-albuterol 0.5 mg-3 mg(2.5 mg base)/3 mL solution for nebulization 1 ml inhalation TID PRN PRN (Reason: wheezing) clonidine HCl 0.1 mg tablet 0.1 mg PO TID metoprolol tartrate 25 mg tablet 25 mg PO BID melatonin 5 mg tablet 10 mg PO QHS Dulera 200-5 mcg/actuation HFA aerosol inhaler 2 puff inhalation BID naloxone 4 mg/actuation spray,non-aerosol 1 spray INTRANASAL Q3M PRN (Reason: opioid overdose) ropinirole 1 mg tablet 1 mg PO QHS prazosin 5 mg capsule 5 mg PO QHS Referrals / Follow Up: Care Physician,No Primary [Primary Care Provider] - Within 1 Week Disposition Disposition (needs filled in before D/C Order can be placed): Home, Self Care Charges/Coding Visit Charges Inpatient E&M: 36169 Disch Hosp >30min
--- NOTE | 2023-11-21 12:14 | CASEMGMT ---
Addendum entered by José Damon 11/21/23 15:13: MEGAN ORTIZ informed that pt called [facility] prior to discharge and was told by [facility] that they were not aware of any O2 orders. Pt stated her ride was here, that she was not waiting, and she left. MEGAN ORTIZ spoke w/Leta @ [facility]. She was notified O2 script sent via [facility] earlier today and pt has been discharged home. She states she will work on entering in the information and states pt does not need to contact [facility] for home O2 delivery, as she is already aware. Addendum entered by José Damon 11/21/23 13:46: Pt provided w/PCP list from kelly Malik certified surgical tech/first assistant. RNBlanca, provided w/pulse ox and will give to pt. Script for home O2 received from Dr Woody and sent to [facility] via [facility] along w/home O2 testing results. MEGAN Rios will provide pt w/portable O2 tank from [employer]. Pt is aware to call [facility] prior to discharge to arrange for home O2 set-up/delivery. Pt denies having other dc needs/concerns. Original Note: MEGAN ORTIZ NOTE: Per Dr Woody, plans to discharge pt home today. Home O2 testing has been completed and pt qualifies for home O2. MEGAN ORTIZ to room. Introduced self and role. Pt resting in bed. Pt aware she qualifies for O2 @ dc. Verbal list of DME companies and made aware [facility] is affiliated w/[facility]. Pt chooses [facility]. Pt made aware of Home O2 set-up process and questions answered. She states she does not have a pulse ox and cannot afford to purchase one. She was made aware a pulse ox will be provided @ discharge and she voices appreciation. Pt states she does not have a PCP. Will provide a list of same. Discussed importance of getting established w/a PCP and she voices understanding. Pt also made aware of [facility] and provided handout/info on same. She states she has a CM through [employer] who will be taking her home @ discharge. Pt states she has 8 children-- 5 adults and 3 under age 18. She would like to complete AD/POA today w/SW, if possible, stating she would want her friends, Ene and Alondra, to be her HCPOA's. Will notify SWAysha. Pt made aware if SW unable to meet w/her today to complete the paperwork that she can make appt w/SW as an OP to have these completed. She voices appreciation. She denies having other discharge needs/concerns. Neptali MONTESINOSN RN CM
--- NOTE | 2023-11-21 12:20 | CASEMGMT ---
Discharge Planning A list of?PCP providers consistent with the patient's preferred geographic region, medical needs, and insurance network was created from the [facility] website.? This list was provided to the RN CM. Helena Swanson, Discharge Planning Asst.
--- NOTE | 2023-11-21 13:47 | CASEMGMT ---
SW was informed patient would like to complete a Healthcare Power of Postbed Stitcher. SW completed documents with patient. Copies were made and given to patient along with original. SW also placed a copy in patient's chart. Aysha DIAZ
== END 2023-11-21 12:47 | disposition home or self-care (01) ==
LOC: ED 18:18 → PCU 11-21 07:15
PROVIDERS: Admitting Provider Hospitalist; Emergency Provider Student in an Organized Health Care Education/Training Program; Visit Provider Internal Medicine
DX: G43.909 Migraine, unspecified, not intractable, without status migrainosus (principal); J44.9 Chronic obstructive pulmonary disease, unspecified; E66.01 Morbid (severe) obesity due to excess calories; Z68.43 Body mass index [BMI] 50.0-59.9, adult; R11.2 Nausea with vomiting, unspecified; Z79.51 Long term (current) use of inhaled steroids; I10 Essential (primary) hypertension; Z79.891 Long term (current) use of opiate analgesic; Z87.891 Personal history of nicotine dependence; G62.9 Polyneuropathy, unspecified; G25.81 Restless legs syndrome; Z79.899 Other long term (current) drug therapy; F32.A Depression, unspecified
CPT/HCPCS: 36415; 71045; 80048; 83880; 84484; 85025; 85027; 85379; 87631; 93005; 93306; 94640; 94668; 96372; 96374; 96375; 97802; 99221; 99252; 99285; 99406; Q9957; A4216; C8929; G0378; G0463; J2405

== ENCOUNTER 2024-06-01 19:15 | Emergency (ER) | payer MEDICAID, SELFPAY ==
[2024-06-01 19:38] VITALS: BP 148/101; PULSE 98; RESP 16; TEMP 37; O2SAT 95
--- NOTE | 2024-06-01 19:45 | RAD_ITS ---
PROCEDURE: CHEST 1 VIEW (PORTABLE) REASON FOR EXAM: Chest pain. TECHNIQUE: Frontal view of the chest. COMPARISON: None. FINDINGS: The cardiac and mediastinal contours are normal. The lungs are clear. RAD/Chest 1 View (Portable) IMPRESSION: NEGATIVE SINGLE VIEW OF THE CHEST. Reading Location: [id number]
--- NOTE | 2024-06-01 19:45 | EKG12_ITS ---
Test Reason : CP Blood Pressure : */* mmHG Vent. Rate : 101 BPM Atrial Rate : 101 BPM P-R Int : 146 ms QRS Dur : 100 ms QT Int : 348 ms P-R-T Axes : 63 20 20 degrees QTcB Int : 451 ms Sinus tachycardia Possible Left atrial enlargement Borderline ECG Confirmed by CHAN GOVEA, YAIR ([id number]), editor greeting card LOYDA MACHADO ([id number]) on 06/02/2024 8:56:39 AM Referred By: Confirmed By: YAIR GILES MD
[2024-06-01 20:15] VITALS: BP 154/92; PULSE 102; RESP 17; O2SAT 96
[2024-06-01 20:27] LABS: Absolute Lymphocyte Count 1.85 X10^3/uL (0.83-4.51); Absolute Neutrophil Count 2.9 X10^3/uL (2.0-7.7); Basophil# 0.03 X10^3/uL; Basophil% 0.6 % (0-1); Eosinophil# 0.25 X10^3/uL; Eosinophils% 4.6 % (0-5); Hematocrit 39.5 % (37-47); Hemoglobin 12.6 g/dL (12.0-15.0); Lymphocyte # 1.85 X10^3/ul (0.83-4.51); Lymphocyte % 33.9 % (19-41); Mean Corp Hgb Conc 31.9 g/dL (32-36); Mean Corpuscular Volume 90.8 fL (81-99); Mean Platelet Vol. 10.5 fl (6.2-12.0); Monocyte# 0.43 X10^3/uL; Monocyte% 7.9 % (0-10); NRBC Flagged by Analyzer 0 % (0-5); Neutrophil # 2.88 X10^3/uL (2.7-7.7); Neutrophil % 52.8 % (47-70); Platelet Count 163 K/mm3 (150-450); RBC Distribution Width CV 12.7 % (11.6-14.6); RBC Distribution Width SD 41.9 fl (35.1-43.9); Red Blood Count 4.35 M/mm3 (4.2-5.4); White Blood Count 5.5 K/mm3 (4.4-11.0)
[2024-06-01 20:36] LABS: Prothrombin Time (Protime)PT. 13.2 SECONDS (11.7-14.9)
[2024-06-01 20:46] LABS: Anion Gap 4 (5-15); BUN 7 mg/dL (7-18); Calcium,Total 8.8 mg/dL (8.5-10.1); Chloride 105 mmol/L (98-107); Creatinine, Serum 0.54 mg/dL (0.55-1.02); EST Glomerular Filtration Rate 129 mL/min (>60); Est Glom Filt Rate - Afr Amer 156 mL/min (>60); Glucose 68 mg/dL (74-106); Potassium 3.3 mmol/L (3.5-5.1); Sodium Level 142 mmol/L (136-145); Troponin-I HS (w/2H Reflex) 5 pg/mL (3.0-54.0)
--- NOTE | 2024-06-01 20:57 | RAD_ITS ---
PROCEDURE: Left HIP, UNI W/ PELVIS 2-3 VIEWS REASON FOR EXAM: Left hip pain. TECHNIQUE: Two views of the left hip and single frontal view of the pelvis are obtained. COMPARISON: None. FINDINGS: No acute fracture or dislocation is identified. Degenerative changes are present involving the bilateral hip joints and pubic symphysis as well as the visualized lower lumbar spine. There are postsurgical changes of the left acetabular region with surgical plate and screw fixation. Right-sided fallopian tube micro insert is noted. RAD/HIP, UNI W/ Pelvis 2-3 Views IMPRESSION: No definite acute abnormality. Reading Location: [facility]
[2024-06-01 21:00] VITALS: BP 154/92; PULSE 102; RESP 13; O2SAT 94
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
[2024-06-01] MEDS: Ketorolac 15 MG/ML Vial IV (21:47)
[2024-06-01 21:54] VITALS: PULSE 103; RESP 18
[2024-06-01] MEDS: Ipratropium/Albuterol Sulfate 3 ML AMPUL.NEB INHALATION (21:54)
[2024-06-01] MEDS: Albuterol 2.5 MG/3 ML VIAL.NEB. INHALATION (21:54)
[2024-06-01 22:00] VITALS: BP 145/89; PULSE 99; RESP 11
--- NOTE | 2024-06-01 22:12 | CM.ED ---
Social work Reason for referral: no PCP Referral source: case find This SW identified patient's lack of PCP and need for resources. This SW entered patient's room, introducing self and role at [facility]. Patient was sitting up in bed, alert and oriented. Patient confirmed patient's lack of PCP and desire to obtain one. Patient stated going to a doctor in [place] monthly who was able to provide patient with Suboxone. Patient accepted resources of [facility] Provider Directory and [facility] information. Patient denied further needs at this time. Danii Lynn, CEMENT RUBBER, [employer]
[2024-06-01 22:24] LABS: Reflex Troponin-HS? (from REC) Y
--- NOTE | 2024-06-01 22:36 | CPS ---
[2154] x1 Albuterol given to pt. in ER as well
[2024-06-01] MEDS: MethylPREDNISolone 125 MG/2 ML Vial IV (22:42)
[2024-06-01 23:00] VITALS: PULSE 106; RESP 14; O2SAT 97
[2024-06-02] VITALS: BP 155/78; PULSE 96; RESP 17; O2SAT 98
[2024-06-02] MEDS: Azithromycin 250 MG Tablet 500 MG PO (00:32)
[2024-06-02] MEDS: Potassium Chloride Oral Tablet 20 MEQ PO (00:32)
[2024-06-02 00:33] VITALS: BP 157/78; PULSE 68; RESP 16; TEMP 36.9; O2SAT 97
== END 2024-06-02 00:35 | disposition home or self-care (01) ==
PROVIDERS: Emergency Provider Emergency Medicine; Visit Provider Emergency Medicine
DX: J44.9 Chronic obstructive pulmonary disease, unspecified (principal); M25.552 Pain in left hip; R07.9 Chest pain, unspecified; E87.6 Hypokalemia; Z87.891 Personal history of nicotine dependence; Z86.711 Personal history of pulmonary embolism
CPT/HCPCS: 71045; 73502; 80048; 84484; 85025; 85610; 87631; 93005; 94640; 96374; 96375; 99285; A4216

== ENCOUNTER 2024-08-25 09:50 | Emergency (ER) | payer MEDICAID, SELFPAY ==
[2024-08-25] VITALS (10 sets, daily range): BP systolic 108–137; BP diastolic 51–93; PULSE 91–113; RESP 17–21; TEMP 36.9–37.3; O2SAT 3–93; BMI 60.7
--- NOTE | 2024-08-25 10:19 | EKG12_ITS ---
Test Reason : AT Blood Pressure : */* mmHG Vent. Rate : 96 BPM Atrial Rate : 96 BPM P-R Int : 152 ms QRS Dur : 98 ms QT Int : 340 ms P-R-T Axes : 59 21 31 degrees QTcB Int : 429 ms Normal sinus rhythm Normal ECG Confirmed by CHAN GOVEA, YAIR ([id number]), assistant production editor LOYDA MACHADO ([id number]) on 08/26/2024 1:30:02 PM Referred By: TL/SAIMA Confirmed By: YAIR GILES MD
--- NOTE | 2024-08-25 10:20 | ED.VIS.DYS ---
HPI History of Present Illness Chief Complaint: Shortness of Breath Informant: patient and EMS Narrative Narrative: 49-year-old female with history of COPD presenting to the emergency room shortness of breath. Patient states that she does not have a lung lung doctor but does have a PCP who prescribes her Suboxone in [place]. She states that she typically wears oxygen at night and has a nebulizer for albuterol. She notes wheezing over the past couple days as well as a cough with sputum production. She states that she does vape but no longer smokes tobacco products. She states that last night she stated her friend's house and did not have her oxygen or her nebulizer with her. EMS was called due to shortness of breath and patient noted to have oxygen saturations of 85%. She received a breathing treatment en route. During my history and physical the patient was noted to be 95% with good waveform on room air. [facility] Medical History Morbid obesity with BMI of 60.0-69.9, adult Depression Fentanyl use disorder, mild, in sustained remission, abuse Pulmonary emboli Former smoker COPD (chronic obstructive pulmonary disease) HTN (hypertension) Home Medications ?Medication ?Instructions ?Recorded ?Last Taken ?Type albuterol sulfate 90 mcg/actuation 2 puff inhalation Q4H PRN sob 05/11/23 05/11/23 History aerosol inhaler wheezying buprenorphine 8 mg-naloxone 2 mg 1 film sublingual TID drug 05/11/23 08/24/24 History sublingual film addiction lisinopril 40 mg tablet 40 mg PO DAILY bp 05/11/23 08/24/24 History bupropion HCl 150 mg 24 hr tablet, 150 mg PO DAILY depression 09/08/23 08/24/24 History extended release bupropion HCl 300 mg 24 hr tablet, 300 mg PO DAILY depression 09/08/23 08/24/24 History extended release gabapentin 800 mg tablet 800 mg PO 4X/DAY pain 09/08/23 08/24/24 History promethazine 25 mg tablet 25 mg PO Q8 PRN nausea 09/09/23 08/24/24 History ipratropium 0.5 mg-albuterol 3 mg 1 ml inhalation TID PRN wheezing 10/29/23 Unknown History (2.5 mg base)/3 mL nebulization soln mometasone-formoterol HFA 200 2 puff inhalation BID 11/20/23 08/24/24 History mcg-5 mcg/actuation aerosol inhaler (Dulera) naloxone 4 mg/actuation nasal spray 1 spray intranasal Q3M PRN opioid 11/20/23 Unknown History overdose prednisone 20 mg tablet 60 mg (3 x 20 mg) PO DAILY #12 06/02/24 08/24/24 Rx TABLETS doxycycline monohydrate 100 mg 100 mg PO BID #14 CAPSULES 08/25/24 Unknown Rx capsule ibuprofen 600 mg tablet 600 mg PO Q6H PRN pain 08/25/24 Unknown History melatonin 10 mg tablet 10 mg PO QHS 08/25/24 08/24/24 History prednisone 20 mg tablet 60 mg (3 x 20 mg) PO DAILY #15 08/25/24 Unknown Rx TABLETS Allergy/AdvReac Type Severity Reaction Status Date / Time No Known Allergies Allergy Verified 06/01/24 19:39 Family History no significant family his Surgical History History of open reduction and internal fixation (ORIF) procedure History of cholecystectomy Social History Smoking Status: Former smoker ROS ROS ED Constitutional Constitutional ED: Denies chills, fever(s) or weight loss Eyes Eyes: Denies change in vision or diplopia ENT ENT ED: Denies ear pain, rhinorrhea or sore throat Cardiovascular Cardiovascular: Denies chest pain, orthopnea, palpitations or racing heartbeat Respiratory/Chest Respiratory/Chest: Reports cough, dyspnea, dyspnea on exertion and sputum; Denies orthopnea Gastrointestinal Gastrointestinal: Denies abdominal pain, diarrhea, nausea or vomiting Genitourinary Genitourinary ED: Denies dysuria, hematuria or urinary frequency Musculoskeletal Musculoskeletal: Denies arthralgias or myalgias Integumentary Denies abscess or rash Neurologic Neurologic: Denies headache(s) or weakness Psychiatric Psychiatric: Denies anxiety, depression, suicidal ideation or suicidal thoughts Endocrine Endocrinology: Denies polydipsia, polyphagia or polyuria Allergic/Immunologic Allergic/Immunologic ED: Denies mouth swelling, tongue swelling or urticaria EXAM Physical Exam Narrative Exam Narrative: 49-year-old female sitting comfortably on the bed. She is talking on her phone. No apparent distress Const Vital Signs: 08/25/24 09:50 08/25/24 09:51 08/25/24 09:55 Temperature 99.1 F 99.1 F Temperature Source Oral Oral Pulse Rate 112 H 112 H Respiratory Rate 20 H Respiratory Effort Respiratory Depth Respiratory Pattern Blood Pressure 137/93 H Blood Pressure Mean 107 Pulse Ox 86 91 Oxygen Delivery Method Room Air Nasal Cannula Oxygen Flow Rate (L/min) 3 08/25/24 09:56 08/25/24 10:27 08/25/24 10:27 Temperature Temperature Source Pulse Rate 113 H Respiratory Rate 20 H Respiratory Effort Short of Breath Respiratory Depth Normal Respiratory Pattern Normal Blood Pressure Blood Pressure Mean Pulse Ox 91 Oxygen Delivery Method Nasal Cannula Nasal Cannula Oxygen Flow Rate (L/min) 3 08/25/24 10:50 08/25/24 10:55 08/25/24 11:00 Temperature 98.5 F Temperature Source Oral Pulse Rate 100 106 H Respiratory Rate 17 Respiratory Effort Respiratory Depth Respiratory Pattern Blood Pressure 108/51 L 108/51 L 108/51 L Blood Pressure Mean 70 70 70 Pulse Ox 93 Oxygen Delivery Method Room Air Oxygen Flow Rate (L/min) 08/25/24 11:20 08/25/24 11:20 08/25/24 12:09 Temperature 98.9 F Temperature Source Oral Pulse Rate 91 Respiratory Rate 21 H Respiratory Effort Respiratory Depth Respiratory Pattern Blood Pressure 110/74 Blood Pressure Mean 86 Pulse Ox 87 92 92 Oxygen Delivery Method Room Air Nasal Cannula Oxygen Flow Rate (L/min) 2 Positive well nourished, well developed and obese General Appearance ED: well developed and NAD Nutritional Appearance: obese HEENT Reports normocephalic, head/scalp atraumatic and moist mucous membranes Eyes PERRL and EOMs intact bilaterally Neck no lymphadenopathy, supple and no JVD Resp normal respiratory effort Resp Narrative: Expiratory wheezing right greater than left Auscultation: wheezes expiratory wheezes Cardio regular rate, regular rhythm and no murmurs GI normal to inspection, nondistended, normoactive bowel sounds and non-tender Palpation: soft Back/Spine no CVA tenderness and normal ROM Extremity normal to inspection General Extremety ED: Negative for edema General Extremity: Negative for edema Neuro oriented x3 and CN's II-XII intact bilaterally Sensorium / Orientation: alert Motor Exam: strength 5/5 throughout Psych mental status grossly normal Mood & Affect: Negative for depressed or tearful Skin no rashes or lesions noted and no wounds MDM MDM MDM Narrative Medical decision making narrative: Differential diagnosis includes but not limited to bronchitis COPD exacerbation pneumonia hypoxia pulmonary embolism acute coronary syndrome CHF Negative interpretation the chest x-ray is chronic changes possible early infiltrative changes. Patient's white count 7.9 platelet count of 160 hemoglobin 12.9. BMP with a glucose of 80. EKG is normal sinus rhythm with a rate of 96 bpm. Patient the patient's symptomology think that is most likely a viral infection that has flared her COPD. I doubt pulmonary embolism or ACS. She received a DuoNeb and prednisone. Repeat examination showed the lungs to be clear. She is about 93% with a good waveform on room air when I exit interview her. Patient is can be discharged home on prednisone. She has albuterol nebulizers at home as well as supplemental oxygen as needed. I am also going to write for doxycycline given the change in sputum and the possible changes on chest x-ray. History & Record Review Discussion w/independent historian: EMS personnel and Patient Additional record(s) reviewed:: Prior ED visit and Prior labs Lab Data Attestation: I reviewed the patient's lab results. Labs: Laboratory Results - last 24 hr 08/25/24 09:55 WBC 7.9 RBC 4.39 Hgb 12.9 Hct 40.7 MCV 92.7 MCH 29.4 MCHC 31.7 L RDW Std Deviation 43.0 RDW Coeff of [place] 12.7 Plt Count 160 MPV 10.3 Immature Gran % (Auto) 0.300 Neut % (Auto) 78.7 H Lymph % (Auto) 12.8 L Alexander % (Auto) 4.2 Eos % (Auto) 3.7 Baso % (Auto) 0.3 Absolute Neuts (auto) 6.2 Absolute Lymphs (auto) 1.01 Nucleated RBC % 0 Sodium 141 Potassium 3.8 Chloride 105 Carbon Dioxide 24.9 Anion Gap 11 BUN 14 Creatinine 0.58 L Estim Creat Clear Calc 227.56 Est GFR (MDRD) Non-Af 112 BUN/Creatinine Ratio 24.7 H Glucose 80 Calcium 8.6 Radiography Diagnostic Testing: Clinical Impression(s) from Imaging Studies Chest X-Ray 08/25/24 10:30 IMPRESSION: 1. Findings are compatible with multifocal pneumonia on the RIGHT. Consider also asymmetric pulmonary edema. Follow-up to radiographic resolution recommended with PA and lateral chest radiographs. 2. Prominence of the sukhwinder may reflect enlargement of the pulmonary arteries as can be seen in pulmonary arterial hypertension versus hilar lymphadenopathy. Recommend attention on above follow-up or alternatively outpatient CT chest, ideally with IV contrast. 3. Additional description as above. Reading Location: [facility] EKG Initial EKG: Attestation: I personally reviewed and interpreted this EKG as follows: Comments: Normal sinus rhythm ventricular rate of [address] segments. Discharge Plan Triage Chief Complaint: Shortness of Breath ED Provider: Barry Slade Dx/Rx/DC Orders Clinical Impression: Asthma exacerbation in COPD, Morbid obesity with BMI of 60.0-69.9, adult Instructions: ED COPD Flare Prescriptions: New prednisone 20 mg tablet 60 mg PO DAILY Qty: 15 0RF doxycycline monohydrate 100 mg capsule 100 mg PO BID Qty: 14 0RF No Action albuterol sulfate 90 mcg/actuation HFA aerosol inhaler 2 puff INHALATION Q4H PRN (Reason: sob wheezying) buprenorphine-naloxone 8-2 mg film 1 film sublingual TID Patient Comments: PLACE 1 STRIP UNDER THE TONGUE THREE TIMES DAILY FOR 28 DAYS lisinopril 40 mg tablet 40 mg PO DAILY bupropion HCl 150 mg tablet extended release 24 hr 150 mg PO DAILY Rx Instructions: TAKE W/ 300 MG TABLET FOR A TOTAL OF 450 MG ONCE DAILY bupropion HCl 300 mg tablet extended release 24 hr 300 mg PO DAILY Rx Instructions: TAKE W/ 150 MG TABLET FOR A TOTAL OF 450 MG ONCE DAILY gabapentin 800 mg tablet 800 mg PO 4X/DAY promethazine 25 mg tablet 25 mg PO Q8 PRN (Reason: nausea) ipratropium-albuterol 0.5 mg-3 mg(2.5 mg base)/3 mL solution for nebulization 1 ml inhalation TID PRN (Reason: wheezing) Dulera 200-5 mcg/actuation HFA aerosol inhaler 2 puff inhalation BID naloxone 4 mg/actuation spray,non-aerosol 1 spray INTRANASAL Q3M PRN (Reason: opioid overdose) prednisone 20 mg tablet 60 mg PO DAILY Qty: 12 0RF melatonin 10 mg tablet 10 mg PO QHS ibuprofen 600 mg tablet 600 mg PO Q6H PRN (Reason: pain) Primary Care Provider: Care Physician,No Primary Referrals: Garrett Middleton, [Med Staff - Active Staff] - (You may wish to schedule follow-up with Dr. Middleton as a lung specialist.) Care Physician,No Primary [Primary Care Provider] - Print Language: [place] Disposition Disposition: Home, Self Care Discharge Date/Time: 08/25/24 12:14
[2024-08-25] MEDS: Ipratropium/Albuterol Sulfate 3 ML AMPUL.NEB INHALATION (10:24)
[2024-08-25 10:25] LABS: Absolute Lymphocyte Count 1.01 X10^3/uL (0.83-4.51); Absolute Neutrophil Count 6.2 X10^3/uL (2.0-7.7); Basophil# 0.02 X10^3/uL; Basophil% 0.3 % (0-1); Eosinophil# 0.29 X10^3/uL; Eosinophils% 3.7 % (0-5); Hematocrit 40.7 % (37-47); Hemoglobin 12.9 g/dL (12.0-15.0); Lymphocyte # 1.01 X10^3/ul (0.83-4.51); Lymphocyte % 12.8 % (19-41); Mean Corp Hgb Conc 31.7 g/dL (32-36); Mean Corpuscular Hgb 29.4 pg (27.0-32.0); Mean Corpuscular Volume 92.7 fL (81-99); Mean Platelet Vol. 10.3 fl (6.2-12.0); Monocyte# 0.33 X10^3/uL; Monocyte% 4.2 % (0-10); NRBC Flagged by Analyzer 0 % (0-5); Neutrophil # 6.19 X10^3/uL (2.7-7.7); Neutrophil % 78.7 % (47-70); Platelet Count 160 K/mm3 (150-450); RBC Distribution Width CV 12.7 % (11.6-14.6); Red Blood Count 4.39 M/mm3 (4.2-5.4); White Blood Count 7.9 K/mm3 (4.4-11.0)
--- NOTE | 2024-08-25 10:30 | RAD_ITS ---
PROCEDURE: CHEST 1 VIEW (PORTABLE) (RADCXPA_P), 08/25/2024 REASON FOR EXAM: DYSPNEA AND COUGH TECHNIQUE: A single portable AP view of the chest was obtained. COMPARISON: 06/01/2024 FINDINGS: Patient is slightly RIGHT rotated. Heart: Unremarkable. Mediastinum: Prominence of the bilateral sukhwinder. Lungs/pleura: Patchy airspace disease on the RIGHT. Suspect an interstitial component may also present. No sizeable pleural effusion or visible pneumothorax. Bones: Unremarkable. Lines and support devices: None. Other: None. RAD/Chest 1 View (Portable) IMPRESSION: 1. Findings are compatible with multifocal pneumonia on the RIGHT. Consider al so asymmetric pulmonary edema. Follow-up to radiographic resolution recommended with PA and lateral chest radiographs. 2. Prominence of the sukhwinder may reflect enlargement of the pulmonary arteries as can be seen in pulmonary arterial hypertension versus hilar lymphadenopathy. Recommend attention on above follow-up or altern atively outpatient CT chest, ideally with IV contrast. 3. Additional description as above. Reading Location: [id number]
[2024-08-25 10:43] LABS: Anion Gap 11 (5-15); BUN 14 mg/dL (4-19); BUN/Creat Ratio 24.7 RATIO (10-20); Calcium,Total 8.6 mg/dL (7.6-11.0); Carbon Dioxide 24.9 mmol/L (21.0-32.0); Chloride 105 mmol/L (98-108); Creatinine, Serum 0.58 mg/dL (0.70-1.20); EST Glomerular Filtration Rate 112 (>60); Estimated Creatinine Clearance 227.56 ml/min (50-250); Glucose 80 mg/dL (70-99); Potassium 3.8 mmol/L (3.3-5.1); Sodium Level 141 mmol/L (133-145)
[2024-08-25] MEDS: predniSONE 20 MG Tablet 60 MG PO (10:46)
== END 2024-08-25 12:14 | disposition home or self-care (01) ==
PROVIDERS: Emergency Provider Emergency Medicine; Visit Provider Emergency Medicine
DX: J44.1 Chronic obstructive pulmonary disease with (acute) exacerbation (principal); E66.01 Morbid (severe) obesity due to excess calories; Z68.44 Body mass index [BMI] 60.0-69.9, adult; I10 Essential (primary) hypertension; F32.A Depression, unspecified; Z79.51 Long term (current) use of inhaled steroids; Z79.899 Other long term (current) drug therapy; Z87.891 Personal history of nicotine dependence; Z86.711 Personal history of pulmonary embolism
CPT/HCPCS: 71045; 80048; 85025; 93005; 94640; 99285; A4216